=== PATIENT | male | born 1995 | race Caucasian/White ===

== ENCOUNTER 2018-02-27 05:19 | Emergency (ER) | payer MEDICAID, OTHER ==
[2018-02-27] MEDS ORDERED: Insulin Regular 300 UNITS/3 ML VIAL ONE (05:54)
[2018-02-27 06:29] LABS: Anion Gap 16 mmol/L (10-20); BUN (Urea Nitrogen) 16 mg/dL (8.9-20.6); Calc. Creatinine Clearance 0 mL/min (70-130); Calcium 10.1 mg/dL (7.8-10.44); Carbon Dioxide 25 mmol/L (22-29); Chloride 93 mmol/L (98-107); Estimated GFR-MDRD 82; Potassium 4.2 mmol/L (3.5-5.1); Sodium 130 mmol/L (136-145)
[2018-02-27 06:41] LABS: Glucose 673 mg/dL (70-105)
== END 2018-02-27 07:10 | disposition home or self-care (01) ==
LOC: EDUNIT# 05:19 → ERS 05:19
DX: E10.65 Type 1 diabetes mellitus with hyperglycemia (principal); F31.9 Bipolar disorder, unspecified; Z87.891 Personal history of nicotine dependence; Z79.4 Long term (current) use of insulin; Z79.899 Other long term (current) drug therapy
CPT/HCPCS: 36415; 36416; 80048; 82010; 96361; 96374; J1815

== ENCOUNTER 2018-05-08 10:33 | Inpatient (IN) | payer MEDICAID, OTHER ==
[2018-05-08] MEDS ORDERED: Ondansetron ODT 4 MG TAB ONE ×2 (11:15→14:51)
[2018-05-08 11:49] LABS: #Eosinphils 0.1 thou/uL (0.0-0.7); #Lymphocytes 4.1 thou/uL (1.20-3.40); %Basophils 0.2 % (0.0-1.0); %Eosinophils 0.4 % (0.0-10.0); %Lymphocytes 25.5 % (21.0-51.0); %Monocytes 6.2 % (0.0-10.0); %Neutrophils 67.7 % (42.0-75.0); Hemoglobin 20.2 g/dL (14.0-18.0); Mean Corpuscular HGB CONC 34.6 g/dL (32.0-36.0); Mean Corpuscular Hemoglobin 31.4 pg (27.0-31.0); Mean Corpuscular Volume 90.9 fL (78.0-98.0); Mean Platelet Volume 6.4 fL (7.4-10.4); Platelet Count 344 thou/uL (130-400); Red Blood Cell (RBC) Count 6.43 mill/uL (4.70-6.10); White Blood Cell (WBC) Count 16.2 thou/uL (4.8-10.8)
[2018-05-08 12:05] LABS: ALT (SGPT) 20 U/L (8-55); AST (SGOT) 15 U/L (5-34); Albumin 4.7 g/dL (3.5-5.0); Alkaline Phosphatase 101 U/L (40-150); Anion Gap 27 mmol/L (10-20); BUN (Urea Nitrogen) 16 mg/dL (8.9-20.6); Bilirubin, Total 0.6 mg/dL (0.2-1.2); Calc. Creatinine Clearance 0 mL/min (70-130); Carbon Dioxide 10 mmol/L (22-29); Chloride 103 mmol/L (98-107); Estimated GFR-MDRD 53; Globulin 3.9 g/dL (2.4-3.5); Glucose 148 mg/dL (70-105); Lipase 8 U/L (8-78); Magnesium 1.9 mg/dL (1.6-2.6); Potassium 4.2 mmol/L (3.5-5.1); Protein, Total 8.6 g/dL (6.0-8.3); Sodium 136 mmol/L (136-145)
[2018-05-08 13:28] LABS: Bilirubin Moderate (Negative); Blood, Urine Trace (Negative); Clarity CLEAR (Clear); Glucose, Urine (Dipstick) 500 mg/dL (Negative); Leukocyte Negative (Negative); Nitrite Negative (Negative); Protein, Urine (Dipstick) > or equal to 300 mg/dL (Neg-Trace); Specific Gravity, Urine 1.025 (1.002-1.036); Urobilinogen 0.2 mg/dL (0.2-1.0)
[2018-05-08 13:29] LABS: Base Excess-Venous -15.5 mmol/L (0 (+/- 2.5)); Bicarbonate (HCO3v) 10.8 mmol/L (1.0-85.0); CO2 Tension (PvCO2) 28.5 mmHg (41.0-51.0); Calcium, Ionized 1.07 mmol/L (1.12-1.32); Hemoglobin - Calc 21.2 g/dL (12.0-18.0); O2 Tension (PvO2) 40.1 mmHg (35.0-45.0); Potassium 4.5 mmol/L (3.4-4.7); T. Carbon Dioxide 11.7 mmol/L (1.0-85.0); pH (Venous) 7.187 (7.35-7.45); vO2 Saturation-calc 63.7 % (94-98)
[2018-05-08 13:34] LABS: Bacteria/HPF None Seen HPF (None Seen); RBC/HPF 0-3 HPF (0-3); Squamous Epithelial 0-3 HPF (0-3); WBC/HPF 0-3 HPF (0-3)
[2018-05-08 13:36] LABS: Pathc Cast-AUWi Flag 10.32 (0-2.49)
[2018-05-08 13:39] LABS: Renal Epithelial None Seen HPF (0-3); Transitional Epithelial NONE SEEN HPF (0-3)
[2018-05-08 13:40] LABS: Hyaline Casts/LPF 0-3 HYALINE CAST LPF (0-3 Hyaline); Manual Microscopic Reviewed? No Path Casts Seen
[2018-05-08] MEDS ORDERED: Acetaminophen 325 MG TAB PO PRN (14:25)
[2018-05-08] MEDS ORDERED: Dextrose 5% in Water 1,000 ML IV PRN (14:25)
[2018-05-08] MEDS ORDERED: Dextrose 50% Abboject 50 ML SYRINGE SLOW IVP PRN (14:25)
[2018-05-08] MEDS ORDERED: NS 0.9% w/ 20 MEQ KCL 1,000 ML IV PRN ×2 (14:25)
[2018-05-08] MEDS ORDERED: CCU Electrolyte Replacement 1 EACH IVPB ONE (14:25)
[2018-05-08] MEDS ORDERED: Sodium Chloride 0.9% 1,000 ML IV PRN ×4 (14:25)
[2018-05-08] MEDS ORDERED: Dextrose 5 %-0.45 % NaCl 1,000 ML IV PRN (14:25)
[2018-05-08] MEDS ORDERED: Insulin Regular 100 units/100 ml in NS IVPB SCH (14:30)
[2018-05-08] MEDS ORDERED: Dextrose 5% w/ 20 mEq KCl 1,000 ML IV SCH (14:30)
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
[2018-05-08 14:40] LABS: Amphetamine Not Detected (NotDetected); Barbiturates Screen Not Detected (NotDetected); Benzodiazepine Screen Not Detected (NotDetected); Cocaine Metabolite Screen Not Detected (NotDetected); Medtox Control Line Valid? VALID (VALID); Medtox Reader # READER 1; Methadone Not Detected (NotDetected); Methamphetamine Not Detected (NotDetected); Opiate Screen Not Detected (NotDetected); Oxycodone Screen Not Detected (NotDetected); Phencyclidine (PCP) Not Detected (NotDetected); THC/Cannabinoid Screen Not Detected (NotDetected); Tricyclic Screen Not Detected (NotDetected)
[2018-05-08] MEDS ORDERED: Ketorolac Tromethamine 30 MG/ML VIAL ONE (14:51)
[2018-05-08] MEDS ORDERED: Ondansetron ODT 4 MG TAB PO PRN (15:05)
[2018-05-08 15:38] LABS: Hemoglobin A1c 13.4 % (4.0-6.0)
[2018-05-08 15:39] LABS: BUN (Urea Nitrogen) 14 mg/dL (8.9-20.6); Calc. Creatinine Clearance 0 mL/min (70-130); Calcium 8.7 mg/dL (7.8-10.44); Carbon Dioxide Less than 8 mmol/L (22-29); Chloride 109 mmol/L (98-107); Estimated GFR-MDRD 62; Glucose 249 mg/dL (70-105); Magnesium 1.7 mg/dL (1.6-2.6); Phosphorus 2.9 mg/dL (2.3-4.7); Potassium 4.7 mmol/L (3.5-5.1); Sodium 139 mmol/L (136-145)
[2018-05-08] MEDS ORDERED: Potassium Chloride 40 MEQ in Premix Bag 1 BAG IVPB PRN (15:44)
[2018-05-08] MEDS ORDERED: Potassium Phosphate 9 MMOL in Sodium Chloride 0.9% 100 ML IVPB PRN (15:44)
[2018-05-08] MEDS ORDERED: Potassium Chloride 40 MEQ in Sodium Chloride 0.9% 250 ML 250 ML IVPB PRN (15:44)
[2018-05-08] MEDS ORDERED: Potassium Chloride 20 MEQ TAB PO PRN (15:44)
[2018-05-08] MEDS ORDERED: Magnesium 2 GM/NS 0.9% 100 ML 2 GM in Premix Bag 1 BAG IVPB PRN (15:44)
[2018-05-08] MEDS ORDERED: CCU ELECTROLYTE REPLACEMENT PROTOCOL FS PRN (15:44)
[2018-05-08] MEDS ORDERED: Potassium Phosphate 15 MMOL in Sodium Chloride 0.9% 250 ML 250 ML IV PRN (15:44)
[2018-05-08] MEDS ORDERED: Potassium Phosphate 12 MMOL in Sodium Chloride 0.9% 250 ML 250 ML IV PRN (15:44)
[2018-05-08] MEDS ORDERED: Magnesium Oxide 400 MG TAB PO PRN ×2 (15:44)
[2018-05-08 16:12] LABS: Lactic Acid 1.2 mmol/L (0.5-2.2)
[2018-05-08] MEDS: D5 1/2 NS w/20 mEq KCL 1,000 ML IV PRN ×2 (18:42→23:07)
[2018-05-08 19:08] LABS: Lactic Acid 1.1 mmol/L (0.5-2.2)
[2018-05-08 19:31] LABS: Anion Gap 19 mmol/L (10-20); BUN (Urea Nitrogen) 13 mg/dL (8.9-20.6); Calc. Creatinine Clearance 68 mL/min (70-130); Calcium 8.8 mg/dL (7.8-10.44); Carbon Dioxide 12 mmol/L (22-29); Chloride 106 mmol/L (98-107); Estimated GFR-MDRD 65; Glucose 307 mg/dL (70-105); Potassium 3.9 mmol/L (3.5-5.1); Sodium 133 mmol/L (136-145)
[2018-05-08 23:42] LABS: Lactic Acid 0.8 mmol/L (0.5-2.2)
[2018-05-08 23:46] LABS: Anion Gap 11 mmol/L (10-20); BUN (Urea Nitrogen) 11 mg/dL (8.9-20.6); Calc. Creatinine Clearance 79 mL/min (70-130); Calcium 8.7 mg/dL (7.8-10.44); Carbon Dioxide 16 mmol/L (22-29); Chloride 111 mmol/L (98-107); Estimated GFR-MDRD 76; Glucose 136 mg/dL (70-105); Potassium 3.7 mmol/L (3.5-5.1); Sodium 134 mmol/L (136-145)
[2018-05-09] MEDS: D5 1/2 NS w/20 mEq KCL 1,000 ML IV PRN ×2 (03:00→06:49)
[2018-05-09 04:22] LABS: Anion Gap 11 mmol/L (10-20); BUN (Urea Nitrogen) 9 mg/dL (8.9-20.6); Calc. Creatinine Clearance 83 mL/min (70-130); Calcium 8.6 mg/dL (7.8-10.44); Carbon Dioxide 18 mmol/L (22-29); Chloride 110 mmol/L (98-107); Estimated GFR-MDRD 82; Glucose 248 mg/dL (70-105); Potassium 3.8 mmol/L (3.5-5.1); Sodium 135 mmol/L (136-145)
--- NOTE | 2018-05-09 07:21 | PDOC.FM ---
- Subjective Subjective: Patient reports feeling better overnight, only complaints are hunger and abdominal pain. Denies N/V/D/C, BARRON, dizziness, SOB, CP. - Objective MAR Reviewed: Yes Vital Signs & Weight: Vital Signs (12 hours) Temp Pulse Resp BP Pulse Ox 05/09/18 04:00 98.4 F 93 18 130/76 99 05/09/18 00:00 98.8 F 97 18 124/80 98 05/08/18 20:00 98.6 F 74 18 100 Weight Weight 57.062 kg I&O: 05/08/18 05/09/18 05/10/18 06:59 06:59 06:59 Intake Total 3120 Output Total 925 Balance 2195 Result Diagrams: 05/08/18 11:22 05/09/18 03:27 <Kris Hensley M - Last Filed: 05/09/18 10:37> - Objective Vital Signs & Weight: Vital Signs (12 hours) Temp Pulse Resp BP Pulse Ox 05/09/18 11:52 98.6 F 16 135/89 100 05/09/18 08:00 98.4 F 93 16 99 05/09/18 07:28 98.4 F 93 16 123/79 97 05/09/18 04:00 98.4 F 93 18 130/76 99 Weight Weight 57.062 kg I&O: 05/08/18 05/09/18 05/10/18 06:59 06:59 06:59 Intake Total 3120 2350 Output Total 925 800 Balance 2195 1550 Result Diagrams: 05/08/18 11:22 05/09/18 12:35 <Faustino Mejia A - Last Filed: 05/09/18 14:09> Phys Exam - Physical Examination Constitutional: NAD HEENT: moist MMs, oral pharynx no lesions Neck: no JVD, full ROM Respiratory: no wheezing, clear to auscultation bilateral Cardiovascular: RRR, no significant murmur Gastrointestinal: soft, positive bowel sounds diffusely tender Musculoskeletal: no edema, pulses present Neurological: normal sensation, moves all 4 limbs Psychiatric: normal affect, A&O x 3 Skin: no rash, normal turgor <Kris Hensley M - Last Filed: 05/09/18 10:37> Dx/Plan (1) DKA (diabetic ketoacidoses) Code(s): E13.10 - OTH DIABETES MELLITUS WITH KETOACIDOSIS WITHOUT COMA Status : Acute QualifierTitle: Diabetes mellitus type: type 1 Diabetes mellitus complication detail: without coma Qualified Code(s): E10.10 - Type 1 diabetes mellitus with ketoacidosis without coma (2) BROOKE (acute kidney injury) Code(s): N17.9 - ACUTE KIDNEY FAILURE, UNSPECIFIED Status: Acute (3) Lactic acid increased Code(s): E87.2 - ACIDOSIS Status: Acute (4) Diabetes mellitus type 1 Status: Chronic QualifierTitle: Diabetes mellitus complication status: with ketoacidosis Diabetes mellitus complication detail: without coma Qualified Code(s): E10.10 - Type 1 diabetes mellitus with ketoacidosis without coma (5) Polycythemia Code(s): D75.1 - SECONDARY POLYCYTHEMIA Status: Acute (6) Leukocytosis Code(s): D72.829 - ELEVATED WHITE BLOOD CELL COUNT, UNSPECIFIED Status: Acute - Plan Plan: DKA - Anion gap just closed this morning, now 7 from 23 yesterday. - advance diet and switch to SC insulin, turn off insulin drip 1-2 hours after SC insulin administered - zofran for n/v BROOKE - related to severe dehydration - IVF via DKA protocol, recheck BMP bid DM1 - restart home insulin when off of DKA protocol - HA1c: 13.4 - Accucheck achs when off of DKA protocol Elevated lactic acid - secondary to DKA related dehydration - resolved Polycythemia - 2/2 dehydration - IVF as above Leukocytosis - most likely reactive - UA negative, GCC pending. No other clear source or signs of infection <Kris Hensley - Last Filed: 05/09/18 10:37> Attending Addendum - Attending Addendum Date/Time: 05/09/18 5184 I personally evaluated the patient and discussed the management with Dr. Hensley. I agree with the History, Examination, Assessment and Plan documented above with any addition or exceptions noted below. <Faustino Mejia - Last Filed: 05/09/18 14:09>
[2018-05-09] MEDS ORDERED: Insulin Glargine 30 UNITS in Pre-Filled Syringe 1 EACH SC SCH (09:00)
[2018-05-09] MEDS ORDERED: Dextrose 5% in Water 1,000 ML IV PRN (12:31)
[2018-05-09] MEDS ORDERED: Dextrose 50% Abboject 50 ML SYRINGE SLOW IVP PRN (12:31)
[2018-05-09 13:11] LABS: Anion Gap 8 mmol/L (10-20); BUN (Urea Nitrogen) 7 mg/dL (8.9-20.6); Calc. Creatinine Clearance 99 mL/min (70-130); Calcium 8.7 mg/dL (7.8-10.44); Carbon Dioxide 23 mmol/L (22-29); Chloride 109 mmol/L (98-107); Estimated GFR-MDRD Greater than 90; Glucose 253 mg/dL (70-105); Potassium 3.2 mmol/L (3.5-5.1); Sodium 137 mmol/L (136-145)
[2018-05-09] MEDS: HumaLOG 300 UNITS/3 ML VIAL SC PRN ×2 (13:48→16:34)
[2018-05-09 14:34] VITALS: BMI 17.4
[2018-05-09 15:35] VITALS: BP 118/77
[2018-05-09 17:11] VITALS: TEMP 98.3
[2018-05-09 17:34] LABS: Anion Gap 8 mmol/L (10-20); BUN (Urea Nitrogen) 7 mg/dL (8.9-20.6); Calc. Creatinine Clearance 103 mL/min (70-130); Calcium 8.5 mg/dL (7.8-10.44); Carbon Dioxide 25 mmol/L (22-29); Chloride 109 mmol/L (98-107); Estimated GFR-MDRD Greater than 90; Glucose 257 mg/dL (70-105); Potassium 3.3 mmol/L (3.5-5.1); Sodium 139 mmol/L (136-145)
[2018-05-09] MEDS ORDERED: Potassium Chloride 20 MEQ TAB PO SCH (18:15)
[2018-05-10] MEDS ORDERED: Potassium Chloride 20 MEQ TAB PO SCH (08:00)
--- NOTE | 2018-05-10 13:05 | DIS-2 ---
DATE OF ADMISSION: 05/08/2018 DATE OF AMA: 05/09/2018 RESIDENT: Kris Hensley D.O. ADMITTING ATTENDING: Dr. Gayle Webber ATTENDING AT TIME OF AMA: Dr. Faustino Mejia CONSULTS: None. PROCEDURES: None. PRIMARY DIAGNOSES: 1. Diabetic ketoacidosis. 2. Acute kidney injury. SECONDARY DIAGNOSES: 1. Type 1 diabetes. 2. Polycythemia. 3. Leukocytosis. DISCHARGE MEDICATIONS: No medications were provided for patient on discharge. However, the patient was previously: 1. Tresiba FlexTouch Pen 30 units subcutaneous b.i.d. 2. Humalog 15 units subcutaneous t.i.d. with meals. 3. Gabapentin 100 mg p.o. b.i.d. DISCONTINUED MEDICATIONS: None. HISTORY OF PRESENT ILLNESS/HOSPITAL COURSE: The patient is a 22-year-old male with a past medical history of type 1 diabetes and recurrent episodes of DKA with 3 other episodes of similar presentation in the past year. In the ER, the patient received a fluid bolus; however, because he reported that he had taken home insulin he was not given any. This decision was also made because the patient's blood sugar was 185. However, anion gap was 23, which on the 2nd check of BMP worsened to at least 23, was unable to be measured because the bicarbonate was less than 8. Additionally, beta hydroxybutyrate of 6.82. Creatinine at that time also was 1.64. The patient was admitted to [facility] and started on an insulin drip with D5 with potassium repletion. Overnight, the patient improved and by the morning his anion gap had closed. That morning, the patient's blood sugars got as high as 391. Additionally, potassium was down to 3.2 at lunch time. Therefore, the patient was continued to be titrated on his insulin. He was taken off the insulin drip and fed which he tolerated p.o. He was transferred to the floor and given potassium repletion. The evening of day 2 of hospitalization, the patient desired to go home. There were concerns about his blood sugars being too elevated and the patient going back into DKA as well as his low potassium. Therefore, the patient signed papers to leave the hospital AMA and left. Additionally, the patient's hemoglobin A1C was 13.4 and was 13.8 at the end of November. Also of note, the patient's creatinine did improve from 1.64 on admission to 0.91 on the day of AMA. DISPOSITION: Guarded long-term if he does not improve his care for treatment. MTDD
== END 2018-05-09 20:11 | disposition left against medical advice (07) | DRG 638 ==
LOC: ERS 10:33 → IMCU/EMU 17:23 → T4-A 05-09 15:32
PROVIDERS: ADMIT Family Medicine; ATTEND Family Medicine
DX: E10.10 Type 1 diabetes mellitus with ketoacidosis without coma (principal); N17.9 Acute kidney failure, unspecified; E87.2 Acidosis; Z79.4 Long term (current) use of insulin; E86.0 Dehydration; D75.1 Secondary polycythemia
CPT/HCPCS: 36415; 36416; 80048; 80053; 80306; 81003; 81015; 82010; 82330; 82803; 83036; 83605; 83690; 83735; 84100; 85025; 87491; 87591; 93005; 96361; 96365; 96366; 96375; J1815; J1885; J7050; Q0162

== ENCOUNTER 2018-05-25 19:33 | Inpatient (IN) | payer OTHER ==
[2018-05-25] MEDS ORDERED: Ketorolac Tromethamine 30 MG/ML VIAL ONE (20:02)
[2018-05-25 20:09] LABS: Hemoglobin 18.8 g/dL (14.0-18.0); Mean Corpuscular HGB CONC 36.2 g/dL (32.0-36.0); Mean Corpuscular Hemoglobin 32.7 pg (27.0-31.0); Mean Corpuscular Volume 90.5 fL (78.0-98.0); Mean Platelet Volume 6.3 fL (7.4-10.4); Platelet Count 312 thou/uL (130-400); RBC Distribution Width 12.4 % (11.5-14.5); Red Blood Cell (RBC) Count 5.75 mill/uL (4.70-6.10); White Blood Cell (WBC) Count 10.7 thou/uL (4.8-10.8)
--- NOTE | 2018-05-25 20:30 | RAD ---
AP VIEW CHEST 05/25/18 HISTORY: Cough, weakness. AP view chest is obtained on 05/25/18. Comparison made to previous exam from 12/12/17. AP view chest demonstrates the lungs to be well aerated. No evidence of active intrathoracic disease seen. No evidence of effusions, pneumonia or pneumothorax seen. IMPRESSION: Unremarkable AP view chest. POS: [facility]
[2018-05-25 20:31] LABS: Band 4 % (5-11); Eosinophils 1 % (0-10); Lymphocytes 31 % (21-51); MDiff Complete? YES; Monocytes 4 % (0-10); Neutrophil 55 % (42-75); PLT Morphology Comment Appears Adequate; RBC Morphology Normal; Reactive Lymphocytes 5 % (0-10)
[2018-05-25 20:32] LABS: ALT (SGPT) 18 U/L (8-55); AST (SGOT) 13 U/L (5-34); Albumin 4.5 g/dL (3.5-5.0); Alkaline Phosphatase 97 U/L (40-150); Anion Gap 26 mmol/L (10-20); BUN (Urea Nitrogen) 14 mg/dL (8.9-20.6); Bilirubin, Total 0.3 mg/dL (0.2-1.2); Calc. Creatinine Clearance 0 mL/min (70-130); Calcium 9.5 mg/dL (7.8-10.44); Carbon Dioxide 13 mmol/L (22-29); Chloride 102 mmol/L (98-107); Estimated GFR-MDRD 53; Globulin 3.2 g/dL (2.4-3.5); Glucose 173 mg/dL (70-105); Magnesium 2.2 mg/dL (1.6-2.6); Potassium 3.6 mmol/L (3.5-5.1); Protein, Total 7.7 g/dL (6.0-8.3); Sodium 137 mmol/L (136-145)
[2018-05-25 22:20] LABS: Bilirubin Moderate (Negative); Blood, Urine Negative (Negative); Clarity CLEAR (Clear); Glucose, Urine (Dipstick) >=1000 mg/dL (Negative); Leukocyte Negative (Negative); Nitrite Negative (Negative); Protein, Urine (Dipstick) 30 mg/dL (Neg-Trace); Specific Gravity, Urine 1.018 (1.002-1.036); Urobilinogen 0.2 mg/dL (0.2-1.0); pH, Urine 5.5 (5.0-9.0)
[2018-05-25 22:22] LABS: Bacteria/HPF None Seen HPF (None Seen); Hyaline Casts/LPF 0-3 HYALINE CAST LPF (0-3 Hyaline); Pathc Cast-AUWi Flag 0.29 (0-2.49); Squamous Epithelial None Seen HPF (0-3); WBC/HPF 0-3 HPF (0-3)
[2018-05-26 00:07] LABS: Anion Gap 24 mmol/L (10-20); BUN (Urea Nitrogen) 11 mg/dL (8.9-20.6); Calc. Creatinine Clearance 0 mL/min (70-130); Calcium 7.5 mg/dL (7.8-10.44); Carbon Dioxide 11 mmol/L (22-29); Chloride 105 mmol/L (98-107); Estimated GFR-MDRD 68; Glucose 360 mg/dL (70-105); Potassium 4.1 mmol/L (3.5-5.1); Sodium 136 mmol/L (136-145)
[2018-05-26] MEDS ORDERED: Ondansetron ODT 8 MG TAB ONE (00:21)
[2018-05-26] MEDS ORDERED: Morphine 4 MG/ML VIAL ONE (00:21)
[2018-05-26] MEDS ORDERED: Potassium Chloride 20 MEQ TAB ONE (01:03)
[2018-05-26] MEDS ORDERED: Acetaminophen 325 MG TAB PO PRN (01:04)
[2018-05-26] MEDS ORDERED: Sodium Chloride 0.9% 1,000 ML IV SCH (01:15)
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
[2018-05-26] MEDS ORDERED: Insulin Regular 300 UNITS/3 ML VIAL ONE (01:49)
[2018-05-26 02:14] LABS: #Basophils 0.1 thou/uL (0.0-0.2); #Eosinphils 0.1 thou/uL (0.0-0.7); #Lymphocytes 3.2 thou/uL (1.20-3.40); #Monocytes 0.6 thou/uL (0.11-0.59); #Neutrophils 4.9 thou/uL (1.40-6.50); %Basophils 0.8 % (0.0-1.0); %Eosinophils 0.8 % (0.0-10.0); %Lymphocytes 36.5 % (21.0-51.0); %Monocytes 6.4 % (0.0-10.0); %Neutrophils 55.5 % (42.0-75.0); Hemoglobin 14.5 g/dL (14.0-18.0); Mean Corpuscular Hemoglobin 32.9 pg (27.0-31.0); Mean Corpuscular Volume 91.3 fL (78.0-98.0); Mean Platelet Volume 6.1 fL (7.4-10.4); Platelet Count 269 thou/uL (130-400); RBC Distribution Width 12.4 % (11.5-14.5); White Blood Cell (WBC) Count 8.8 thou/uL (4.8-10.8)
[2018-05-26 02:22] LABS: Anion Gap 21 mmol/L (10-20); BUN (Urea Nitrogen) 11 mg/dL (8.9-20.6); Calc. Creatinine Clearance 0 mL/min (70-130); Calcium 7.8 mg/dL (7.8-10.44); Carbon Dioxide 10 mmol/L (22-29); Chloride 107 mmol/L (98-107); Estimated GFR-MDRD 76; Glucose 351 mg/dL (70-105); Potassium 3.6 mmol/L (3.5-5.1); Sodium 134 mmol/L (136-145)
[2018-05-26] MEDS ORDERED: Potassium Chloride 20 MEQ TAB PO SCH (02:45)
[2018-05-26 03:08] LABS: CO2 Tension 23.3 mmHg (35.0-45.0); O2 Tension (PaO2) 129.4 mmHg (80.0-100.0); pH, Arterial 7.33 (7.35-7.45)
[2018-05-26 03:09] LABS: Base Excess (BEa) -11.9 mEq/L (-2.0 to +3.0); Hematocrit-ABG 42.4 % (42.0-52.0); Hemoglobin (Hb) 14.2 g/dL (14.0-18.0)
[2018-05-26 03:10] LABS: ALV-art Gradient -8.795 (0-20); Analyzer IN Cardio ER; Calcium, Ionized 1.3 mmol/L (1.12-1.30); Puncture Site R RADIAL
[2018-05-26] MEDS ORDERED: D5 1/2 NS w/20 mEq KCL 1,000 ML ONE ×2 (03:45→08:56)
[2018-05-26 04:33] LABS: Anion Gap 15 mmol/L (10-20); BUN (Urea Nitrogen) 9 mg/dL (8.9-20.6); Calc. Creatinine Clearance 0 mL/min (70-130); Calcium 7.7 mg/dL (7.8-10.44); Carbon Dioxide 14 mmol/L (22-29); Chloride 106 mmol/L (98-107); Estimated GFR-MDRD 84; Glucose 200 mg/dL (70-105); Potassium 4.5 mmol/L (3.5-5.1); Sodium 130 mmol/L (136-145)
[2018-05-26] MEDS ORDERED: Enoxaparin Sodium 40 MG/0.4 ML SYRINGE ONE (08:44)
[2018-05-26] MEDS ORDERED: Docusate 100 MG CAP PO SCH (09:00)
[2018-05-26] MEDS ORDERED: Famotidine/PF 20 mg/2ml Vial SLOW IVP SCH (09:00)
[2018-05-26] MEDS ORDERED: Enoxaparin Sodium 40 MG/0.4 ML SYRINGE SC SCH (09:00)
[2018-05-26] MEDS: D5 1/2 NS w/20 mEq KCL 1,000 ML IV SCH ×2 (09:01→11:24)
[2018-05-26] MEDS ORDERED: HumaLOG 300 UNITS/3 ML VIAL ONE (10:34)
[2018-05-26 10:38] LABS: Anion Gap 10 mmol/L (10-20); BUN (Urea Nitrogen) 8 mg/dL (8.9-20.6); Calc. Creatinine Clearance 0 mL/min (70-130); Calcium 7.4 mg/dL (7.8-10.44); Carbon Dioxide 19 mmol/L (22-29); Chloride 105 mmol/L (98-107); Estimated GFR-MDRD Greater than 90; Glucose 216 mg/dL (70-105); Potassium 3.8 mmol/L (3.5-5.1); Sodium 130 mmol/L (136-145)
[2018-05-26] MEDS ORDERED: Insulin Glargine 30 UNITS in Pre-Filled Syringe 1 EACH SC SCH (10:45)
[2018-05-26] MEDS ORDERED: HumaLOG 300 UNITS/3 ML VIAL SC SCH (10:45)
[2018-05-26 11:06] VITALS: TEMP 98.1
[2018-05-26 11:27] VITALS: BMI 17.6
[2018-05-26 14:57] VITALS: BP 118/64
== END 2018-05-26 14:55 | disposition home or self-care (01) | DRG 639 ==
LOC: ERS 19:33 → ERHOLD 05-26 00:25 → T4-A 05-26 11:12
PROVIDERS: ADMIT Internal Medicine; ATTEND Internal Medicine
DX: E10.10 Type 1 diabetes mellitus with ketoacidosis without coma (principal); E10.40 Type 1 diabetes mellitus with diabetic neuropathy, unspecified; F31.9 Bipolar disorder, unspecified; E86.0 Dehydration; Z79.4 Long term (current) use of insulin; Z79.899 Other long term (current) drug therapy
CPT/HCPCS: 36415; 36416; 71045; 80048; 80053; 81003; 81015; 82010; 82550; 82805; 83690; 83735; 84100; 85025; 85652; 93005; 96360; 96361; 96365; 96366; 96375; J1650; J1815; J1885; J2270; J7050

== ENCOUNTER 2018-06-18 11:45 | Inpatient (IN) | payer OTHER ==
[2018-06-18 12:29] LABS: #Basophils 0.1 thou/uL (0.0-0.2); #Eosinphils 0.1 thou/uL (0.0-0.7); #Lymphocytes 2.6 thou/uL (1.20-3.40); #Monocytes 0.4 thou/uL (0.11-0.59); #Neutrophils 8.5 thou/uL (1.40-6.50); %Basophils 0.8 % (0.0-1.0); %Eosinophils 0.6 % (0.0-10.0); %Lymphocytes 22.4 % (21.0-51.0); %Monocytes 3.7 % (0.0-10.0); %Neutrophils 72.5 % (42.0-75.0); Hemoglobin 20.6 g/dL (14.0-18.0); Mean Corpuscular HGB CONC 34.7 g/dL (32.0-36.0); Mean Corpuscular Hemoglobin 32.9 pg (27.0-31.0); Mean Corpuscular Volume 94.7 fL (78.0-98.0); Platelet Count 513 thou/uL (130-400); RBC Distribution Width 13.7 % (11.5-14.5); Red Blood Cell (RBC) Count 6.26 mill/uL (4.70-6.10); White Blood Cell (WBC) Count 11.8 thou/uL (4.8-10.8)
[2018-06-18] MEDS ORDERED: Insulin Regular 300 UNITS/3 ML VIAL ONE (12:44)
[2018-06-18] MEDS ORDERED: Ondansetron HCl/PF 4 MG/2 ML Vial ONE (12:44)
[2018-06-18 13:52] LABS: ALT (SGPT) 37 U/L (8-55); AST (SGOT) 20 U/L (5-34); Albumin 4.4 g/dL (3.5-5.0); Alkaline Phosphatase 141 U/L (40-150); BUN (Urea Nitrogen) 25 mg/dL (8.9-20.6); Bilirubin, Total 0.2 mg/dL (0.2-1.2); Calc. Creatinine Clearance 0 mL/min (70-130); Calcium 9.9 mg/dL (7.8-10.44); Chloride 103 mmol/L (98-107); Estimated GFR-MDRD 47; Globulin 3.8 g/dL (2.4-3.5); Magnesium 2.4 mg/dL (1.6-2.6); Phosphorus 4.9 mg/dL (2.3-4.7); Protein, Total 8.2 g/dL (6.0-8.3); Sodium 134 mmol/L (136-145)
[2018-06-18 13:59] LABS: Carbon Dioxide Less than 8 mmol/L (22-29); Glucose 570 mg/dL (70-105)
[2018-06-18] MEDS ORDERED: Insulin Regular 100 units/100 ml in NS IVPB SCH (14:45)
[2018-06-18] MEDS ORDERED: HYDROcodone/Acetaminophen 5/325 mg Tablet ONE (15:02)
[2018-06-18 16:26] LABS: BUN (Urea Nitrogen) 24 mg/dL (8.9-20.6); Calc. Creatinine Clearance 0 mL/min (70-130); Calcium 9.4 mg/dL (7.8-10.44); Chloride 107 mmol/L (98-107); Estimated GFR-MDRD 55; Glucose 474 mg/dL (70-105); Potassium 4.7 mmol/L (3.5-5.1); Sodium 137 mmol/L (136-145)
[2018-06-18 16:33] LABS: Carbon Dioxide Less than 8 mmol/L (22-29)
[2018-06-18] MEDS ORDERED: Bisacodyl 5 MG TAB PO PRN (16:41)
[2018-06-18] MEDS ORDERED: Acetaminophen 650 MG Suppository PR PRN (16:41)
[2018-06-18] MEDS ORDERED: CCU Electrolyte Replacement 1 EACH IVPB ONE (16:41)
[2018-06-18] MEDS ORDERED: Dextrose 5 %-0.45 % NaCl 1,000 ML IV PRN (16:41)
[2018-06-18] MEDS ORDERED: Acetaminophen 325 MG TAB PO PRN (16:41)
[2018-06-18] MEDS ORDERED: NS 0.9% w/ 20 MEQ KCL 1,000 ML IV PRN (16:41)
[2018-06-18] MEDS ORDERED: Sodium Chloride 0.9% 1,000 ML IV PRN ×4 (16:41)
[2018-06-18] MEDS ORDERED: Potassium Chloride 40 MEQ in Sodium Chloride 0.9% 250 ML 250 ML IVPB PRN (16:57)
[2018-06-18] MEDS ORDERED: Potassium Chloride 40 MEQ in Premix Bag 1 BAG IVPB PRN (16:57)
[2018-06-18] MEDS ORDERED: CCU ELECTROLYTE REPLACEMENT PROTOCOL FS PRN (16:57)
[2018-06-18] MEDS ORDERED: Magnesium 2 GM/NS 0.9% 100 ML 2 GM in Premix Bag 1 BAG IVPB PRN (16:57)
[2018-06-18] MEDS ORDERED: Potassium Phosphate 12 MMOL in Sodium Chloride 0.9% 250 ML 250 ML IV PRN (16:57)
[2018-06-18] MEDS ORDERED: Magnesium Oxide 400 MG TAB PO PRN ×2 (16:57)
[2018-06-18] MEDS ORDERED: Potassium Phosphate 9 MMOL in Sodium Chloride 0.9% 100 ML IVPB PRN (16:57)
[2018-06-18] MEDS ORDERED: Potassium Phosphate 15 MMOL in Sodium Chloride 0.9% 250 ML 250 ML IV PRN (16:57)
[2018-06-18] MEDS ORDERED: Potassium Chloride 20 MEQ TAB PO PRN (16:57)
--- NOTE | 2018-06-18 17:09 | HP ---
PRIMARY CARE PROVIDER: None. CHIEF COMPLAINT: Vomiting. HISTORY OF PRESENT ILLNESS: Mr. Roldan is a pleasant 22-year-old gentleman who was seen at [facility] on 06/18/2018. He was hospitalized at this facility on 05/26/2018 for di abetic ketoacidosis. Currently, he is lying in bed, appears tired, not really answering questions, but nodding or shaking head occasional in response to questions. A full review of systems could not be completed. Collater al history was obtained from discussion with the emergency room physician and review of medical recor ds. He reportedly has not taken his insulin for the last 2 days. He started vomiting since earlier today . He did not take insulin over the last 2 days because he reportedly forgot about it. He denied any diarrhea or fever. REVIEW OF SYSTEMS: Full review of systems could not be completed secondary to the patient's noncoope ration. PAST MEDICAL HISTORY: Diabetes mellitus type 1 on insulin and neuropathy. PAST SURGICAL HISTORY: Right elbow surgery. PSYCHIATRIC HISTORY: Bipolar disorder and depression. SOCIAL HISTORY: No history of tobacco use, alcohol use or recreational drug use. ALLERGIES: BACTRIM, SULFAMETHOXAZOLE, TRAZODONE and TRIMETHOPRIM. FAMILY HISTORY: Could not obtain. CURRENT MEDICATIONS: Humalog insulin, dose unknown. PHYSICAL EXAMINATION: GENERAL: On examination, Mr. Roldan is sleepy, but arousable, not in acute distress. VITAL SIGNS: Blood pressure is 175/102, pulse 109, respiratory rate 22, and oxygen saturation 100% o n room air. He is afebrile. EYES: No scleral icterus. No conjunctival pallor. ENT: Dry mucosal membranes, no oropharyngeal erythema or exudate. NECK: Supple, nontender, trachea is midline. RESPIRATORY: Accessory muscles of breathing are not active. Chest wall movements are symmetric bila terally. LUNGS: Clear to auscultation without wheeze, rhonchi or crepitations. CARDIOVASCULAR: S1 and S2 are heard, tachycardic and regular. Peripheral pulses are palpable. No c arotid bruit, no pericardial rub. ABDOMEN: Soft, nontender, bowel sounds heard. EXTREMITIES: He has hepatomegaly, no splenomegaly. SKIN: No rashes or subcutaneous nodules, multiple tattoos present. NEUROLOGIC: Cranial nerves II-XII intact. Deep tendon reflexes are 2+. MUSCULOSKELETAL: The patient is moving all four extremities. LYMPHATIC: No cervical lymphadenopathy. PSYCHIATRIC: Normal mood, normal affect, patient is oriented to person and place, unable to assess h is orientation to time. IMAGING DATA AND LABORATORY DATA: Mr. Roldan's labs and investigations were reviewed. He has ana kocytosis with 11,800 white cells, elevated hemoglobin of 20.6, elevated platelet count of 513,000, d ecreased sodium of 134, normal potassium, carbon dioxide less than 8, anion gap could not be calculat ed, blood urea nitrogen elevated at 25, creatinine elevated at 1.83, last known creatinine 0.95 on , normal calcium, elevated phosphorus of 4.9, unremarkable liver profile and elevated glucose of 570. Beta hydroxybutyrate is elevated at 12.51. ASSESSMENT AND PLAN: Mr. Roldan is a pleasant 22-year-old gentleman who was seen at [facility] on 06/18/2018. His problem list includes: 1. Diabetic ketoacidosis: Mr. Roldan is presenting with diabetic ketoacidosis in the context of noncompliance with his insulin. He will be admitted to the hospital for intravenous fluids and insul in per DKA protocol. He will be admitted to the IMCU for further management. 2. Dehydration: Secondary to diabetic ketoacidosis. Provide intravenous fluids, reassess. 3. Acute kidney injury: Secondary to diabetic ketoacidosis. Recheck creatinine level after treatin g ketoacidosis. 4. Metabolic acidosis: Secondary to diabetic ketoacidosis. Recheck Chem-7 after treating diabetic ketoacidosis. LEVEL OF RISK: Intermediate. LEVEL OF COMPLEXITY: Intermediate.
[2018-06-18 17:28] LABS: BUN (Urea Nitrogen) 23 mg/dL (8.9-20.6); Calc. Creatinine Clearance 0 mL/min (70-130); Calcium 9.4 mg/dL (7.8-10.44); Chloride 108 mmol/L (98-107); Estimated GFR-MDRD 58; Glucose 383 mg/dL (70-105); Potassium 4.7 mmol/L (3.5-5.1); Sodium 138 mmol/L (136-145)
[2018-06-18 17:33] LABS: Carbon Dioxide Less than 8 mmol/L (22-29)
[2018-06-18 17:37] VITALS: BMI 16.7
[2018-06-18] MEDS: Ondansetron HCl/PF 4 MG/2 ML Vial SLOW IVP PRN (20:18)
[2018-06-18 21:16] LABS: BUN (Urea Nitrogen) 18 mg/dL (8.9-20.6); Calc. Creatinine Clearance 64 mL/min (70-130); Calcium 8.4 mg/dL (7.8-10.44); Chloride 115 mmol/L (98-107); Estimated GFR-MDRD 70; Glucose 152 mg/dL (70-105); Potassium 4.6 mmol/L (3.5-5.1); Sodium 137 mmol/L (136-145)
[2018-06-18 21:18] LABS: Carbon Dioxide Less than 8 mmol/L (22-29)
[2018-06-18] MEDS: NS 0.9% w/ 20 MEQ KCL 1,000 ML IV PRN ×2 (21:44→23:39)
[2018-06-19 01:19] LABS: Anion Gap 18 mmol/L (10-20); BUN (Urea Nitrogen) 14 mg/dL (8.9-20.6); Calc. Creatinine Clearance 69 mL/min (70-130); Chloride 116 mmol/L (98-107); Estimated GFR-MDRD 76; Glucose 96 mg/dL (70-105); Potassium 4.4 mmol/L (3.5-5.1); Sodium 138 mmol/L (136-145)
[2018-06-19 01:23] LABS: Carbon Dioxide 8 mmol/L (22-29)
[2018-06-19] MEDS: D5 1/2 NS w/20 mEq KCL 1,000 ML IV PRN ×3 (01:36→08:51)
[2018-06-19] MEDS: Ondansetron HCl/PF 4 MG/2 ML Vial SLOW IVP PRN ×2 (03:15→08:50)
[2018-06-19 04:10] LABS: #Basophils 0.1 thou/uL (0.0-0.2); #Eosinphils 0.1 thou/uL (0.0-0.7); #Lymphocytes 4.4 thou/uL (1.20-3.40); #Monocytes 1.4 thou/uL (0.11-0.59); #Neutrophils 9.3 thou/uL (1.40-6.50); %Basophils 0.7 % (0.0-1.0); %Eosinophils 0.7 % (0.0-10.0); %Lymphocytes 28.8 % (21.0-51.0); %Monocytes 9.4 % (0.0-10.0); %Neutrophils 60.5 % (42.0-75.0); Hemoglobin 14.8 g/dL (14.0-18.0); Mean Corpuscular HGB CONC 35.8 g/dL (32.0-36.0); Mean Corpuscular Hemoglobin 33.7 pg (27.0-31.0); Mean Corpuscular Volume 94.1 fL (78.0-98.0); Mean Platelet Volume 6.3 fL (7.4-10.4); Platelet Count 351 thou/uL (130-400); RBC Distribution Width 13.3 % (11.5-14.5); Red Blood Cell (RBC) Count 4.39 mill/uL (4.70-6.10); White Blood Cell (WBC) Count 15.3 thou/uL (4.8-10.8)
[2018-06-19 04:26] LABS: Anion Gap 18 mmol/L (10-20); BUN (Urea Nitrogen) 12 mg/dL (8.9-20.6); Calc. Creatinine Clearance 70 mL/min (70-130); Chloride 113 mmol/L (98-107); Estimated GFR-MDRD 78; Glucose 187 mg/dL (70-105); Sodium 135 mmol/L (136-145)
[2018-06-19 04:51] LABS: Carbon Dioxide 8 mmol/L (22-29)
--- NOTE | 2018-06-19 08:52 | PDOC.PULCN ---
<Kris Ag - Last Filed: 06/19/18 08:54> Pulmonology Consult: HPI - Date of Consult Date: 06/19/18 Time: 08:00 - Consult Details Reason for Consult: DKA Requesting Physician: Colton - History of Present Illness HPI: KAITLIN LINARES is a 22 year-old M w/ PMH including T1DM and Bipolar disorder. He was admitted on 05/08 and 05/26 for DKA and is admitted again for DKA today. This morning he states he is feeling nauseated and has mild abdominal pain today. He denies headache, shortness of breath, or chest pain. Patient states that he takes humalog 15U with meals, 30U tresiba BID. He has not taken any insulin for the last 2 days because "he was sleeping." Patient is aggravated when discussing consequences of not properly managing Diabetes. Pulmonology Consult: ROS - Review of Systems Constitutional: negative: fever, chills Cardiovascular: negative: chest pain, palpitations Respiratory: no reported symptoms. negative: productive cough, wheezing Pulmonology Consult: [facility] Source: patient, other (chart) Past Medical History: T1DM, Bipolar - Social History Smoking Status: Never smoker Alcohol Use: none Drug Use History: none Pulmonology Consult: Meds - Medications MAR Reviewed: Yes Medications: Current Medications Acetaminophen (Tylenol) 650 mg PO Q4H PRN PRN Reason: Headache/Fever or Pain Acetaminophen (Tylenol) 650 mg [place] Q4H PRN PRN Reason: Headache/Fever or Pain Bisacodyl (Dulcolax) 10 mg PO DAILYPRN PRN PRN Reason: Constipation Insulin Human Regular 100 (units/ Sodium Chloride) 101 mls @ 5.05 mls/hr IVPB INF MIKHAIL PRN Reason: 5 UNITS/HR Dextrose/Sodium Chloride (D5 1/2 Ns) 1,000 mls @ 250 mls/hr IV .Q4H PRN; Protocol PRN Reason: Step 4 of DKA Protocol Potassium Chloride/Dextrose/Sod Cl (D5 1/2 Ns W/20 Meq Kcl) 1,000 mls @ 250 mls /hr IV .Q4H PRN; Protocol PRN Reason: Step 4 of DKA Protocol Last Admin: 06/19/18 08:51 Dose: 1,000 mls Insulin Human Regular 100 (units/ Sodium Chloride) 101 mls @ 0 mls/hr IVPB INF MIKHAIL; Titrate PRN Reason: Protocol Sodium Chloride (Normal Saline 0.9%) 1,000 mls @ 500 mls/hr IV .Q2H PRN; Protocol PRN Reason: Step 1 of DKA Protocol Last Admin: 06/18/18 19:36 Dose: 1,000 mls Sodium Chloride (Normal Saline 0.9%) 1,000 mls @ 1,000 mls/hr IV .Q1H PRN; Protocol PRN Reason: Step 1 of DKA Protocol Sodium Chloride (Normal Saline 0.9%) 1,000 mls @ 250 mls/hr IV .Q4H PRN; Protocol PRN Reason: SEE STEP 3 OF DKA PROTOCOL Sodium Chloride (Normal Saline 0.9%) 1,000 mls @ 500 mls/hr IV .Q2H PRN; Protocol PRN Reason: Step 2 of DKA Protocol Potassium Chloride/Sodium Chloride (Ns 0.9% W/ 20 Meq Kcl) 1,000 mls @ 500 mls/ hr IV .Q2H PRN; Protocol PRN Reason: Step 2 of DKA Protocol Last Admin: 06/18/18 23:39 Dose: 1,000 mls Potassium Chloride/Sodium Chloride (Ns 0.9% W/ 20 Meq Kcl) 1,000 mls @ 250 mls/ hr IV .Q4H PRN; Protocol PRN Reason: SEE STEP 3 OF DKA PROTOCOL Potassium Chloride 40 meq/ (Sodium Chloride) 270 mls @ 135 mls/hr IVPB ASDIR PRN PRN Reason: FOR SERUM K+ 2.5 - 3.5 Potassium Chloride 40 meq/ (Device) 100 mls @ 50 mls/hr IVPB ASDIR PRN PRN Reason: FOR SERUM K+ 2.5 - 3.5 Magnesium Sulfate 1 gm/ Sodium (Chloride) 102 mls @ 102 mls/hr IV PRN PRN PRN Reason: MAG LEVEL 1.4 - 2.0 Magnesium Sulfate 2 gm/ Device 100 mls @ 100 mls/hr IVPB ASDIR PRN PRN Reason: MAGNESIUM < 1.4 Potassium Phosphate 9 mmol/ (Sodium Chloride) 103 mls @ 25.75 mls/hr IVPB ASDIR PRN PRN Reason: Phosphate 1.0-1.8 Potassium Phosphate 12 mmol/ (Sodium Chloride) 254 mls @ 63.5 mls/hr IV ASDIR PRN PRN Reason: Serum phosphate 0.5-0.9 Potassium Phosphate 15 mmol/ (Sodium Chloride) 255 mls @ 63.75 mls/hr IV ASDIR PRN PRN Reason: Serum Phos < 0.5 Magnesium Oxide (Magnesium Oxide) 400 mg PO BIDPRN PRN PRN Reason: FOR SERUM MAG 1.4 - 2.0 Magnesium Oxide (Magnesium Oxide) 800 mg PO PRN PRN PRN Reason: FOR SERUM MAG < 1.4 Miscellaneous Medication (Phos-Nak) 1 pkt PO TIDPRN PRN PRN Reason: FOR PHOS LEVEL 1.0 - 1.8 Miscellaneous Medication (Phos-Nak) 2 pkt PO TIDPRN PRN PRN Reason: FOR PHOS LEVEL 0.5 - 1.0 Morphine Sulfate (Morphine) 2 mg SLOW IVP Q4H PRN PRN Reason: Pain Ccu Electrolyte (Replacement Protocol) 0 each FS PRN PRN PRN Reason: FOR ELECTROLYTE REPLACEMENT Ondansetron HCl (Zofran) 4 mg SLOW IVP Q4H PRN PRN Reason: Nausea/Vomiting Last Admin: 06/19/18 08:50 Dose: 4 mg Potassium Chloride (K-Dur) 40 meq PO ASDIR PRN PRN Reason: FOR SERUM K+ 2.5 - 3.5 Potassium Chloride (Klor-Con) 40 meq PER TUBE ASDIR PRN PRN Reason: FOR SERUM K+ 2.5-3.5 - Allergies Allergies/Adverse Reactions: Allergies Allergy/AdvReac Type Severity Reaction Status Date / Time sulfamethoxazole Allergy Verified 05/08/18 19:52 [From Bactrim] trazodone Allergy Verified 05/08/18 19:52 trimethoprim [From Bactrim] Allergy Verified 05/08/18 19:52 Pulmonology Consult: PE - Physical Exam Constitutional: NAD HEENT: moist MMs Cardiovascular: RRR, no significant murmur Respiratory: clear to auscultation anteriorly. negative: wheezes Gastrointestinal: soft, no distention, positive bowel sounds Deviation from normal: mild tenderness to deep palpation Musculoskeletal: no edema, pulses present Neurological: non-focal, moves all 4 limbs Psychiatric: A&O x 3 Skin: no rash, cap refill <2 seconds Pulmonology Consult: Results - Labs Result Diagrams: 06/19/18 03:32 06/19/18 03:32 Pulmonology Consult: A/P - Time Time: 50% of the time was spent in coordination of care (as documented) at patient's floor/unit and/or counseling patient. Time with Patient: greater than 50 minutes - Plan Plan: # DKA - last A1C was 13.4 on 05/08 - gap 14 this AM - B-hydroxybutyrate 12.5 -> 10.8 -> 5.49 - replete electrolytes - still on drip this AM, gap almost closed, bicarb still <8, suggest starting long-acting insulin in anticipation of stopping drip home regimen: humalog 15U at meals, 30U tresiba BID # Metabolic acidosis - bicarb still <8 this AM, 2/2 DKA - afebrile, infection or pancreatitis unlikely as precipitants - check bmp now, 1200 # Dehydration - IVF per DKA protocol # BROOKE - 1.8 on admission, now 1.2 - 2/2 dehydration <Higinio Clark - Last Filed: 06/19/18 21:55> Pulmonology Consult: HPI - History of Present Illness HPI: KAITLIN LINARES is a 22 year-old M Pulmonology Consult: Meds - Medications Medications: Current Medications Acetaminophen (Tylenol) 650 mg PO Q4H PRN PRN Reason: Headache/Fever or Pain Acetaminophen (Tylenol) 650 mg [place] Q4H PRN PRN Reason: Headache/Fever or Pain Bisacodyl (Dulcolax) 10 mg PO DAILYPRN PRN PRN Reason: Constipation Dextrose/Water (Dextrose 50%) 25 gm SLOW IVP PRN PRN PRN Reason: Hypoglycemia Glucagon (Glucagon) 1 mg IM PRN PRN PRN Reason: Hypoglycemia Sodium Chloride (Normal Saline 0.9%) 1,000 mls @ 500 mls/hr IV .Q2H PRN; Protocol PRN Reason: Step 1 of DKA Protocol Last Admin: 06/18/18 19:36 Dose: 1,000 mls Sodium Chloride (Normal Saline 0.9%) 1,000 mls @ 1,000 mls/hr IV .Q1H PRN; Protocol PRN Reason: Step 1 of DKA Protocol Sodium Chloride (Normal Saline 0.9%) 1,000 mls @ 250 mls/hr IV .Q4H PRN; Protocol PRN Reason: SEE STEP 3 OF DKA PROTOCOL Sodium Chloride (Normal Saline 0.9%) 1,000 mls @ 500 mls/hr IV .Q2H PRN; Protocol PRN Reason: Step 2 of DKA Protocol Potassium Chloride/Sodium Chloride (Ns 0.9% W/ 20 Meq Kcl) 1,000 mls @ 500 mls/ hr IV .Q2H PRN; Protocol PRN Reason: Step 2 of DKA Protocol Last Admin: 06/18/18 23:39 Dose: 1,000 mls Potassium Chloride/Sodium Chloride (Ns 0.9% W/ 20 Meq Kcl) 1,000 mls @ 250 mls/ hr IV .Q4H PRN; Protocol PRN Reason: SEE STEP 3 OF DKA PROTOCOL Insulin Glargine 30 units/ (Miscellaneous Medication) 0.3 mls @ 0 mls/hr SC QAM MIKHAIL Insulin Glargine 30 units/ (Miscellaneous Medication) 0.3 mls @ 0 mls/hr SC HS MIKHAIL Last Admin: 06/19/18 20:30 Dose: 0.3 mls Insulin Human Lispro (Humalog) 10 units SC 1200 MIKHAIL Last Admin: 06/19/18 11:42 Dose: 10 units Insulin Human Lispro (Humalog) 10 units SC 1700 MIKHAIL Last Admin: 06/19/18 17:04 Dose: 10 unit Insulin Human Lispro (Humalog) 10 units SC 0800 MIKHAIL Morphine Sulfate (Morphine) 2 mg SLOW IVP Q4H PRN PRN Reason: Pain Last Admin: 06/19/18 17:37 Dose: 2 mg Ondansetron HCl (Zofran) 4 mg SLOW IVP Q4H PRN PRN Reason: Nausea/Vomiting Last Admin: 06/19/18 08:50 Dose: 4 mg Pulmonology Consult: Results - Labs Result Diagrams: 06/19/18 03:32 06/19/18 14:01 Pulmonology Consult: A/P - Time Time: 50% of the time was spent in coordination of care (as documented) at patient's floor/unit and/or counseling patient. Attending Addendum - Attending Addendum Date/Time: 06/19/18 8905 I personally evaluated the patient and discussed the management with Dr. Ag. I agree with the History, Examination, Assessment and Plan documented above with any addition or exceptions noted below. 70 minutes have been devoted to this patient in various activities. I personally reviewed all imaging studies and laboratory data noted within this document. For 50% of this time, I was interacting with the patient at bedside or coordinating care with the care team. For the remainder of the time, I was immediately available to the patient in the hospital unit.
[2018-06-19 09:46] LABS: Anion Gap 14 mmol/L (10-20); BUN (Urea Nitrogen) 7 mg/dL (8.9-20.6); Calc. Creatinine Clearance 72 mL/min (70-130); Calcium 7.6 mg/dL (7.8-10.44); Carbon Dioxide 10 mmol/L (22-29); Chloride 113 mmol/L (98-107); Estimated GFR-MDRD 81; Glucose 217 mg/dL (70-105); Potassium 3.5 mmol/L (3.5-5.1); Sodium 133 mmol/L (136-145)
[2018-06-19] MEDS ORDERED: Dextrose 5% in Water 1,000 ML IV PRN (10:10)
[2018-06-19] MEDS ORDERED: Dextrose 50% Abboject 50 ML SYRINGE SLOW IVP PRN (10:10)
[2018-06-19] MEDS ORDERED: Potassium Chloride 20 MEQ TAB PO SCH (10:45)
[2018-06-19] MEDS ORDERED: Insulin Glargine 30 UNITS in Pre-Filled Syringe 1 EACH SC SCH ×2 (11:00→21:00)
[2018-06-19] MEDS: HumaLOG 300 UNITS/3 ML VIAL SC SCH (11:42)
[2018-06-19 14:26] LABS: Anion Gap 12 mmol/L (10-20); BUN (Urea Nitrogen) 8 mg/dL (8.9-20.6); Calc. Creatinine Clearance 82 mL/min (70-130); Calcium 8.1 mg/dL (7.8-10.44); Carbon Dioxide 17 mmol/L (22-29); Chloride 111 mmol/L (98-107); Estimated GFR-MDRD Greater than 90; Glucose 183 mg/dL (70-105); Potassium 3.8 mmol/L (3.5-5.1); Sodium 136 mmol/L (136-145)
--- NOTE | 2018-06-19 14:29 | PDOC.PN ---
- Subjective Encounter Start Date: 06/19/18 Encounter Start Time: 09:40 Pt seen for followup re: DKA. Pt sleepy but arousable, not answering questions , unable to complete ROS. - Objective MAR Reviewed: Yes Vital Signs & Weight: Vital Signs (12 hours) Temp Pulse Resp BP Pulse Ox 06/19/18 11:49 98.6 F 98 13 123/75 98 06/19/18 08:00 98.6 F 105 H 12 97 06/19/18 07:35 98.6 F 105 H 12 117/78 97 06/19/18 04:00 98.9 F 104 H 17 126/65 97 Weight Admit Weight 110 lb 3.698 oz Weight 110 lb 3.698 oz I&O: 06/18/18 06/19/18 06/20/18 06:59 06:59 06:59 Intake Total 5375 1047 Output Total 1950 1100 Balance 3425 -53 Result Diagrams: 06/19/18 03:32 06/19/18 14:01 Additional Labs: Accuchecks 06/19/18 06/19/18 06/19/18 12:56 12:00 11:11 POC Glucose 209 H 143 H 150 H 06/19/18 06/19/18 06/19/18 10:02 08:58 07:59 POC Glucose 200 H 193 H 221 H 06/19/18 06/19/18 06/19/18 07:02 06:14 05:21 POC Glucose 237 H 245 H 217 H 06/19/18 06/19/18 06/19/18 04:22 03:05 02:06 POC Glucose 227 H 177 H 139 H 06/19/18 06/19/18 06/18/18 01:07 00:18 23:09 POC Glucose 94 94 107 06/18/18 06/18/18 06/18/18 22:05 21:05 20:00 POC Glucose 118 H 132 H 160 H 06/18/18 06/18/18 06/18/18 19:19 18:57 18:03 POC Glucose 210 H 222 H 274 H 06/18/18 06/18/18 06/18/18 17:26 16:27 15:29 POC Glucose 312 H 402 H 439 H EKG Reviewed by me: Yes (Tele: NSR) Phys Exam - Physical Examination Constitutional: NAD Dry mucosae Neck: supple Respiratory: clear to auscultation bilateral Cardiovascular: RRR Gastrointestinal: soft Neurological: moves all 4 limbs Psychiatric: normal affect Deviation from normal: Unable to assess orientation Dx/Plan (1) DKA (diabetic ketoacidoses) Code(s): E13.10 - OTH DIABETES MELLITUS WITH KETOACIDOSIS WITHOUT COMA Status : Acute Qualifiers: Diabetes mellitus type: type 1 Diabetes mellitus complication detail: without coma Qualified Code(s): E10.10 - Type 1 diabetes mellitus with ketoacidosis without coma Comment: Improving, continue DKA treatment per protocol (2) Hyponatremia Code(s): E87.1 - HYPO-OSMOLALITY AND HYPONATREMIA Status: Acute Comment: mild, likely asymptomatic (3) BROOKE (acute kidney injury) Code(s): N17.9 - ACUTE KIDNEY FAILURE, UNSPECIFIED Status: Resolved (4) Hypokalemia Code(s): E87.6 - HYPOKALEMIA Status: Resolved - Plan * . Review of Systems - Medications/Allergies Allergies/Adverse Reactions: Allergies Allergy/AdvReac Type Severity Reaction Status Date / Time sulfamethoxazole Allergy Verified 05/08/18 19:52 [From Bactrim] trazodone Allergy Verified 05/08/18 19:52 trimethoprim [From Bactrim] Allergy Verified 05/08/18 19:52 Medications: Current Medications Acetaminophen (Tylenol) 650 mg PO Q4H PRN PRN Reason: Headache/Fever or Pain Acetaminophen (Tylenol) 650 mg [place] Q4H PRN PRN Reason: Headache/Fever or Pain Bisacodyl (Dulcolax) 10 mg PO DAILYPRN PRN PRN Reason: Constipation Dextrose/Water (Dextrose 50%) 25 gm SLOW IVP PRN PRN PRN Reason: Hypoglycemia Glucagon (Glucagon) 1 mg IM PRN PRN PRN Reason: Hypoglycemia Insulin Human Regular 100 (units/ Sodium Chloride) 101 mls @ 5.05 mls/hr IVPB INF MIKHAIL PRN Reason: 5 UNITS/HR Dextrose/Sodium Chloride (D5 1/2 Ns) 1,000 mls @ 250 mls/hr IV .Q4H PRN; Protocol PRN Reason: Step 4 of DKA Protocol Potassium Chloride/Dextrose/Sod Cl (D5 1/2 Ns W/20 Meq Kcl) 1,000 mls @ 250 mls /hr IV .Q4H PRN; Protocol PRN Reason: Step 4 of DKA Protocol Last Admin: 06/19/18 08:51 Dose: 1,000 mls Insulin Human Regular 100 (units/ Sodium Chloride) 101 mls @ 0 mls/hr IVPB INF MIKHAIL; Titrate PRN Reason: Protocol Sodium Chloride (Normal Saline 0.9%) 1,000 mls @ 500 mls/hr IV .Q2H PRN; Protocol PRN Reason: Step 1 of DKA Protocol Last Admin: 06/18/18 19:36 Dose: 1,000 mls Sodium Chloride (Normal Saline 0.9%) 1,000 mls @ 1,000 mls/hr IV .Q1H PRN; Protocol PRN Reason: Step 1 of DKA Protocol Sodium Chloride (Normal Saline 0.9%) 1,000 mls @ 250 mls/hr IV .Q4H PRN; Protocol PRN Reason: SEE STEP 3 OF DKA PROTOCOL Sodium Chloride (Normal Saline 0.9%) 1,000 mls @ 500 mls/hr IV .Q2H PRN; Protocol PRN Reason: Step 2 of DKA Protocol Potassium Chloride/Sodium Chloride (Ns 0.9% W/ 20 Meq Kcl) 1,000 mls @ 500 mls/ hr IV .Q2H PRN; Protocol PRN Reason: Step 2 of DKA Protocol Last Admin: 06/18/18 23:39 Dose: 1,000 mls Potassium Chloride/Sodium Chloride (Ns 0.9% W/ 20 Meq Kcl) 1,000 mls @ 250 mls/ hr IV .Q4H PRN; Protocol PRN Reason: SEE STEP 3 OF DKA PROTOCOL Potassium Chloride 40 meq/ (Sodium Chloride) 270 mls @ 135 mls/hr IVPB ASDIR PRN PRN Reason: FOR SERUM K+ 2.5 - 3.5 Potassium Chloride 40 meq/ (Device) 100 mls @ 50 mls/hr IVPB ASDIR PRN PRN Reason: FOR SERUM K+ 2.5 - 3.5 Magnesium Sulfate 1 gm/ Sodium (Chloride) 102 mls @ 102 mls/hr IV PRN PRN PRN Reason: MAG LEVEL 1.4 - 2.0 Magnesium Sulfate 2 gm/ Device 100 mls @ 100 mls/hr IVPB ASDIR PRN PRN Reason: MAGNESIUM < 1.4 Potassium Phosphate 9 mmol/ (Sodium Chloride) 103 mls @ 25.75 mls/hr IVPB ASDIR PRN PRN Reason: Phosphate 1.0-1.8 Potassium Phosphate 12 mmol/ (Sodium Chloride) 254 mls @ 63.5 mls/hr IV ASDIR PRN PRN Reason: Serum phosphate 0.5-0.9 Potassium Phosphate 15 mmol/ (Sodium Chloride) 255 mls @ 63.75 mls/hr IV ASDIR PRN PRN Reason: Serum Phos < 0.5 Insulin Glargine 30 units/ (Miscellaneous Medication) 0.3 mls @ 0 mls/hr SC QAM MIKHAIL Insulin Glargine 30 units/ (Miscellaneous Medication) 0.3 mls @ 0 mls/hr SC HS MIKHAIL Dextrose/Water (D5w) 1,000 mls @ 0 mls/hr IV .Q0M PRN; As Directed PRN Reason: Hypoglycemia Insulin Human Lispro (Humalog) 10 units SC 1200 MIKHAIL Last Admin: 06/19/18 11:42 Dose: 10 units Insulin Human Lispro (Humalog) 10 units SC 1700 MIKHAIL Insulin Human Lispro (Humalog) 10 units SC 0800 MIKHAIL Magnesium Oxide (Magnesium Oxide) 400 mg PO BIDPRN PRN PRN Reason: FOR SERUM MAG 1.4 - 2.0 Magnesium Oxide (Magnesium Oxide) 800 mg PO PRN PRN PRN Reason: FOR SERUM MAG < 1.4 Miscellaneous Medication (Phos-Nak) 1 pkt PO TIDPRN PRN PRN Reason: FOR PHOS LEVEL 1.0 - 1.8 Miscellaneous Medication (Phos-Nak) 2 pkt PO TIDPRN PRN PRN Reason: FOR PHOS LEVEL 0.5 - 1.0 Morphine Sulfate (Morphine) 2 mg SLOW IVP Q4H PRN PRN Reason: Pain Last Admin: 06/19/18 13:05 Dose: 2 mg Ccu Electrolyte (Replacement Protocol) 0 each FS PRN PRN PRN Reason: FOR ELECTROLYTE REPLACEMENT Ondansetron HCl (Zofran) 4 mg SLOW IVP Q4H PRN PRN Reason: Nausea/Vomiting Last Admin: 06/19/18 08:50 Dose: 4 mg Potassium Chloride (K-Dur) 40 meq PO ASDIR PRN PRN Reason: FOR SERUM K+ 2.5 - 3.5 Potassium Chloride (Klor-Con) 40 meq PER TUBE ASDIR PRN PRN Reason: FOR SERUM K+ 2.5-3.5
[2018-06-19] MEDS ORDERED: HumaLOG 300 UNITS/3 ML VIAL SC SCH (17:00)
[2018-06-20 04:50] LABS: Anion Gap 10 mmol/L (10-20); BUN (Urea Nitrogen) 6 mg/dL (8.9-20.6); Calc. Creatinine Clearance 90 mL/min (70-130); Calcium 8.6 mg/dL (7.8-10.44); Carbon Dioxide 24 mmol/L (22-29); Chloride 107 mmol/L (98-107); Estimated GFR-MDRD Greater than 90; Glucose 270 mg/dL (70-105); Potassium 3.2 mmol/L (3.5-5.1); Sodium 138 mmol/L (136-145)
[2018-06-20 05:20] LABS: Band 4 % (5-11); Eosinophils 1 % (0-10); Hemoglobin 14.1 g/dL (14.0-18.0); Lymphocytes 54 % (21-51); MDiff Complete? YES; Mean Corpuscular HGB CONC 36.6 g/dL (32.0-36.0); Mean Corpuscular Hemoglobin 33.9 pg (27.0-31.0); Mean Corpuscular Volume 92.7 fL (78.0-98.0); Mean Platelet Volume 6.6 fL (7.4-10.4); Monocytes 5 % (0-10); Neutrophil 36 % (42-75); Platelet Count 307 thou/uL (130-400); RBC Distribution Width 13.2 % (11.5-14.5); Red Blood Cell (RBC) Count 4.15 mill/uL (4.70-6.10); White Blood Cell (WBC) Count 8.3 thou/uL (4.8-10.8)
[2018-06-20] MEDS ORDERED: HumaLOG 300 UNITS/3 ML VIAL SC SCH (08:00)
[2018-06-20] MEDS ORDERED: Potassium Chloride 20 MEQ TAB PO SCH (08:15)
[2018-06-20] MEDS ORDERED: Insulin Glargine 30 UNITS in Pre-Filled Syringe 1 EACH SC SCH (09:00)
[2018-06-20 11:32] VITALS: BP 120/73; TEMP 98.1
[2018-06-20] MEDS: HumaLOG 300 UNITS/3 ML VIAL SC SCH (11:51)
--- NOTE | 2018-06-20 18:42 | DIS ---
DATE OF ADMISSION: 06/18/2018 DATE OF DISCHARGE: 06/20/2018 PRIMARY CARE PROVIDER: None. DISCHARGE DIAGNOSES: 1. Diabetic ketoacidosis. 2. Dehydration. 3. Metabolic acidosis. 4. Acute kidney injury. CONDITION OF PATIENT ON THE DAY OF DISCHARGE: Stable. I assessed Mr. Roldan on the day of discha rge. He denies any chest pain or shortness of breath. He feels better. Vital signs are stable. S1 and S2 are heard, regular. Lungs are clear to auscultation bilaterally. HOSPITAL COURSE: Mr. Roldan is a pleasant 22-year-old gentleman who was admitted to [facility] on 06/18/2018 for diabetic ketoacidosis in the context of not taking his insulin for 2 days. He was admitted to [facility] and treated for DKA per protocol. He continued to improve with treatment and showed significant improvement by 06/20/2018. He is being discharged home in a stable condition. DISCHARGE MEDICATIONS: Humalog 15 units 3 times a day and Tresiba 30 units 2 times a day. On the day of discharge, he has white count 8300, hemoglobin 14.1, platelet count 307,000. Sodium 13 8, potassium 3.2, which is being replaced and creatinine 0.92. DISCHARGE DESTINATION: Home. TOTAL AMOUNT OF TIME SPENT COORDINATING THIS DISCHARGE: 33 minutes.
== END 2018-06-20 12:47 | disposition home or self-care (01) | DRG 638 ==
LOC: ERS 11:45 → IMCU/EMU 15:11 → T4-A 06-19 17:18
PROVIDERS: ADMIT Internal Medicine; ATTEND Internal Medicine
DX: E10.10 Type 1 diabetes mellitus with ketoacidosis without coma (principal); N17.9 Acute kidney failure, unspecified; E87.1 Hypo-osmolality and hyponatremia; Z91.14 Patient's other noncompliance with medication regimen; E10.40 Type 1 diabetes mellitus with diabetic neuropathy, unspecified; F31.9 Bipolar disorder, unspecified; E86.0 Dehydration; E87.6 Hypokalemia; Z88.2 Allergy status to sulfonamides; Z88.8 Allergy status to other drugs, medicaments and biological substances
CPT/HCPCS: 36415; 36416; 80048; 80053; 82010; 83735; 84100; 85025; 96361; 96365; 96366; 96375; 96376; J1815; J2270; J2405; J7050

== ENCOUNTER 2018-07-30 22:13 | Emergency (ER) | payer OTHER ==
[2018-07-30 22:56] LABS: #Basophils 0.1 thou/uL (0.0-0.2); #Eosinphils 0.1 thou/uL (0.0-0.7); #Lymphocytes 3.1 thou/uL (1.20-3.40); #Monocytes 0.5 thou/uL (0.11-0.59); #Neutrophils 4.8 thou/uL (1.40-6.50); %Basophils 0.8 % (0.0-1.0); %Monocytes 5.4 % (0.0-10.0); %Neutrophils 56.9 % (42.0-75.0); Hemoglobin 15.5 g/dL (14.0-18.0); Mean Corpuscular HGB CONC 35.7 g/dL (32.0-36.0); Mean Corpuscular Hemoglobin 33.6 pg (27.0-31.0); Mean Corpuscular Volume 94.2 fL (78.0-98.0); Mean Platelet Volume 6.9 fL (7.4-10.4); Platelet Count 331 thou/uL (130-400); Red Blood Cell (RBC) Count 4.62 mill/uL (4.70-6.10); White Blood Cell (WBC) Count 8.5 thou/uL (4.8-10.8)
[2018-07-30 23:06] LABS: Bilirubin Negative (Negative); Blood, Urine Negative (Negative); Clarity CLEAR (Clear); Glucose, Urine (Dipstick) >=1000 mg/dL (Negative); Leukocyte Negative (Negative); Nitrite Negative (Negative); Protein, Urine (Dipstick) Negative (Neg-Trace); Specific Gravity, Urine 1.029 (1.002-1.036); Urobilinogen 0.2 mg/dL (0.2-1.0)
[2018-07-30 23:16] LABS: ALT (SGPT) 24 U/L (8-55); AST (SGOT) 15 U/L (5-34); Albumin 3.6 g/dL (3.5-5.0); Alkaline Phosphatase 102 U/L (40-150); Anion Gap 16 mmol/L (10-20); BUN (Urea Nitrogen) 13 mg/dL (8.9-20.6); Bilirubin, Total 0.3 mg/dL (0.2-1.2); Calc. Creatinine Clearance 0 mL/min (70-130); Calcium 8.6 mg/dL (7.8-10.44); Carbon Dioxide 20 mmol/L (22-29); Chloride 99 mmol/L (98-107); Estimated GFR-MDRD 72; Globulin 2.8 g/dL (2.4-3.5); Potassium 4.8 mmol/L (3.5-5.1); Protein, Total 6.4 g/dL (6.0-8.3); Sodium 130 mmol/L (136-145)
[2018-07-30 23:18] LABS: Glucose 675 mg/dL (70-105)
[2018-07-30 23:45] LABS: Magnesium 1.8 mg/dL (1.6-2.6); Phosphorus 2.8 mg/dL (2.3-4.7)
[2018-07-31 00:26] LABS: Base Excess-Venous -0.6 mmol/L (0 (+/- 2.5)); Bicarbonate (HCO3v) 23.7 mmol/L (1.0-85.0); CO2 Tension (PvCO2) 37.2 mmHg (41.0-51.0); Calcium, Ionized 1.06 mmol/L (1.12-1.32); Hemoglobin - Calc 13.7 g/dL (12.0-18.0); O2 Tension (PvO2) 54.5 mmHg (35.0-45.0); Potassium 3.8 mmol/L (3.4-4.7); T. Carbon Dioxide 24.8 mmol/L (1.0-85.0); pH (Venous) 7.413 (7.35-7.45); vO2 Saturation-calc 88.4 % (94-98)
[2018-07-31] MEDS ORDERED: Insulin Regular 300 UNITS/3 ML VIAL ONE (01:00)
[2018-07-31] MEDS ORDERED: Acetaminophen 500 MG TAB ONE (01:41)
== END 2018-07-31 01:59 | disposition home or self-care (01) ==
LOC: ERS 22:13
DX: E10.65 Type 1 diabetes mellitus with hyperglycemia (principal); F31.9 Bipolar disorder, unspecified; Z87.891 Personal history of nicotine dependence
CPT/HCPCS: 36415; 36416; 80053; 81003; 82010; 82330; 82435; 82803; 83735; 84100; 84132; 84295; 85014; 85025; 96361; 96374; J1815

== ENCOUNTER 2018-08-17 19:21 | Inpatient (IN) | payer OTHER ==
[~2018-08-17 19:21] MED LIST: ISOVUE-370 76%-LOCM 1 ML ONE
[2018-08-17] MEDS ORDERED: Ketorolac Tromethamine 30 MG/ML VIAL ONE (20:12)
[2018-08-17 20:24] LABS: Bilirubin Negative (Negative); Blood, Urine Negative (Negative); Clarity CLEAR (Clear); Glucose, Urine (Dipstick) >=1000 mg/dL (Negative); Leukocyte Negative (Negative); Nitrite Negative (Negative); Protein, Urine (Dipstick) Negative (Neg-Trace); Specific Gravity, Urine 1.023 (1.002-1.036); Urobilinogen 0.2 mg/dL (0.2-1.0)
[2018-08-17 20:35] LABS: Amphetamine Not Detected (NotDetected); Barbiturates Screen Not Detected (NotDetected); Benzodiazepine Screen Not Detected (NotDetected); Cocaine Metabolite Screen Not Detected (NotDetected); Medtox Control Line Valid? VALID (VALID); Medtox Reader # READER 1; Methadone Not Detected (NotDetected); Methamphetamine Not Detected (NotDetected); Opiate Screen Not Detected (NotDetected); Oxycodone Screen Not Detected (NotDetected); Phencyclidine (PCP) Not Detected (NotDetected); THC/Cannabinoid Screen Not Detected (NotDetected); Tricyclic Screen Not Detected (NotDetected)
--- NOTE | 2018-08-17 21:02 | CT ---
CT ANGIOGRAM OF THE CHEST 08/17/18 COMPARISON: None. HISTORY: Chest pain, assess for pulmonary embolism. TECHNIQUE: Serial axial CT imaging at 2.5 mm intervals from thoracic inlet through upper abdomen with IV contras t using a CT angiogram protocol. Coronal and oblique sagittal 3D reformatted imaging obtained. FINDINGS: The lung parenchyma appears grossly unremarkable. No pneumothorax is seen. Imaged upper abdomen unrem arkable as well. There is fluid within the stomach. There is mild wall prominence of the distal esoph emory which may be secondary to underdistention or esophageal wall thickening. The imaged aorta demonstrates no evidence for dissection or aneurysm. There is narrowing at the origi n of the celiac axis. There is adequate opacification of the pulmonary arterial vasculature with no evidence for acute pulm onary embolism. No acute osseous abnormality. IMPRESSION: No evidence for acute pulmonary embolism. Incidental findings as above. POS: PHYLICIA
[2018-08-17] MEDS ORDERED: Insulin Regular 300 UNITS/3 ML VIAL ONE (22:15)
[2018-08-17] MEDS ORDERED: Insulin Regular 100 units/100 ml in NS IVPB SCH (22:15)
[2018-08-17 22:38] LABS: #Basophils 0.1 thou/uL (0.0-0.2); #Lymphocytes 2.1 thou/uL (1.20-3.40); #Monocytes 0.7 thou/uL (0.11-0.59); #Neutrophils 9.2 thou/uL (1.40-6.50); %Basophils 0.9 % (0.0-1.0); %Eosinophils 0.3 % (0.0-10.0); %Lymphocytes 17.1 % (21.0-51.0); %Monocytes 5.6 % (0.0-10.0); %Neutrophils 76.1 % (42.0-75.0); Hemoglobin 17.4 g/dL (14.0-18.0); Mean Corpuscular HGB CONC 34.1 g/dL (32.0-36.0); Mean Corpuscular Hemoglobin 32.5 pg (27.0-31.0); Mean Corpuscular Volume 95.3 fL (78.0-98.0); Mean Platelet Volume 6.7 fL (7.4-10.4); Platelet Count 349 thou/uL (130-400); Red Blood Cell (RBC) Count 5.37 mill/uL (4.70-6.10); White Blood Cell (WBC) Count 12.1 thou/uL (4.8-10.8)
[2018-08-17 22:44] LABS: ALT (SGPT) 16 U/L (8-55); AST (SGOT) 13 U/L (5-34); Albumin 3.6 g/dL (3.5-5.0); Alkaline Phosphatase 84 U/L (40-150); BUN (Urea Nitrogen) 18 mg/dL (8.9-20.6); Bilirubin, Total 0.3 mg/dL (0.2-1.2); CK (CPK) 26 U/L (30-200); Calc. Creatinine Clearance 0 mL/min (70-130); Chloride 100 mmol/L (98-107); Estimated GFR-MDRD 57; Globulin 2.7 g/dL (2.4-3.5); Glucose 520 mg/dL (70-105); Lipase 12 U/L (8-78); Magnesium 1.8 mg/dL (1.6-2.6); Phosphorus 2.1 mg/dL (2.3-4.7); Potassium 4.4 mmol/L (3.5-5.1); Protein, Total 6.3 g/dL (6.0-8.3); Sodium 129 mmol/L (136-145)
[2018-08-17 22:45] LABS: Acetaminophen Less than 6.0 mcg/mL (10.0-30.0); Alcohol Less than 10 mg/dL (Less than 10); Salicylate Less than 8.0 mg/dL (15.0-30.0)
[2018-08-17 22:47] LABS: CKMB 3.1 ng/mL (0-6.6); Troponin I Less than 0.010 ng/mL (< 0.028)
[2018-08-17 22:48] LABS: Carbon Dioxide Less than 8 mmol/L (22-29)
[2018-08-17] MEDS ORDERED: Morphine 4 MG/ML VIAL ONE (23:25)
[2018-08-17] MEDS ORDERED: NS 0.9% w/ 20 MEQ KCL 1,000 ML IV SCH (23:30)
[2018-08-18] MEDS ORDERED: Labetalol HCl 100 MG/20 ML VIAL ONE (00:39)
[2018-08-18] MEDS ORDERED: Ondansetron HCl/PF 4 MG/2 ML Vial IVP PRN (01:49)
[2018-08-18] MEDS ORDERED: Acetaminophen 325 MG TAB PO PRN (01:49)
[2018-08-18] MEDS ORDERED: Dextrose 5 %-0.45 % NaCl 1,000 ML IV PRN (01:55)
[2018-08-18] MEDS ORDERED: Sodium Chloride 0.9% 1,000 ML IV PRN ×4 (01:55)
[2018-08-18] MEDS ORDERED: NS 0.9% w/ 20 MEQ KCL 1,000 ML IV PRN ×2 (01:55)
[2018-08-18] MEDS ORDERED: D5 1/2 NS w/20 mEq KCL 1,000 ML IV PRN (01:55)
[2018-08-18] MEDS ORDERED: CCU Electrolyte Replacement 1 EACH IVPB ONE (01:55)
[2018-08-18] MEDS ORDERED: CCU ELECTROLYTE REPLACEMENT PROTOCOL FS PRN (02:04)
[2018-08-18] MEDS ORDERED: Magnesium Oxide 400 MG TAB PO PRN ×2 (02:04)
[2018-08-18] MEDS ORDERED: Potassium Phosphate 12 MMOL in Sodium Chloride 0.9% 250 ML 250 ML IV PRN (02:04)
[2018-08-18] MEDS ORDERED: Potassium Chloride 20 MEQ TAB PO PRN (02:04)
[2018-08-18] MEDS ORDERED: Potassium Phosphate 9 MMOL in Sodium Chloride 0.9% 100 ML IVPB PRN (02:04)
[2018-08-18] MEDS ORDERED: Potassium Chloride 40 MEQ in Sodium Chloride 0.9% 250 ML 250 ML IVPB PRN (02:04)
[2018-08-18] MEDS ORDERED: Potassium Phosphate 15 MMOL in Sodium Chloride 0.9% 250 ML 250 ML IV PRN (02:04)
[2018-08-18] MEDS ORDERED: Magnesium 2 GM/NS 0.9% 100 ML 2 GM in Premix Bag 1 BAG IVPB PRN (02:04)
[2018-08-18] MEDS ORDERED: Potassium Chloride 40 MEQ in Premix Bag 1 BAG IVPB PRN (02:04)
[2018-08-18 02:06] VITALS: BMI 17.7
[2018-08-18] MEDS: Sodium Chloride 0.9% 1,000 ML IV SCH ×4 (02:27→16:55)
[2018-08-18] MEDS ORDERED: Ketorolac Tromethamine 30 MG/ML VIAL IVP SCH (03:30)
[2018-08-18 03:59] LABS: #Basophils 0.1 thou/uL (0.0-0.2); #Lymphocytes 4.2 thou/uL (1.20-3.40); #Monocytes 1.5 thou/uL (0.11-0.59); #Neutrophils 9.2 thou/uL (1.40-6.50); %Basophils 0.8 % (0.0-1.0); %Eosinophils 0.3 % (0.0-10.0); %Monocytes 9.8 % (0.0-10.0); %Neutrophils 61.1 % (42.0-75.0); Hemoglobin 17.4 g/dL (14.0-18.0); Mean Corpuscular HGB CONC 34.5 g/dL (32.0-36.0); Mean Corpuscular Hemoglobin 32.8 pg (27.0-31.0); Mean Platelet Volume 6.7 fL (7.4-10.4); Platelet Count 336 thou/uL (130-400)
[2018-08-18 04:21] LABS: Anion Gap 19 mmol/L (10-20); BUN (Urea Nitrogen) 16 mg/dL (8.9-20.6); Calc. Creatinine Clearance 72 mL/min (70-130); Calcium 8.2 mg/dL (7.8-10.44); Carbon Dioxide 11 mmol/L (22-29); Chloride 110 mmol/L (98-107); Estimated GFR-MDRD 73; Glucose 227 mg/dL (70-105); Magnesium 1.9 mg/dL (1.6-2.6); Phosphorus 1.5 mg/dL (2.3-4.7); Potassium 3.9 mmol/L (3.5-5.1); Sodium 136 mmol/L (136-145)
[2018-08-18 04:22] LABS: Albumin 3.7 g/dL (3.5-5.0); Anion Gap 18 mmol/L (10-20); BUN (Urea Nitrogen) 16 mg/dL (8.9-20.6); Calc. Creatinine Clearance 71 mL/min (70-130); Calcium 8.2 mg/dL (7.8-10.44); Carbon Dioxide 11 mmol/L (22-29); Chloride 111 mmol/L (98-107); Estimated GFR-MDRD 72; Glucose 233 mg/dL (70-105); Phosphorus 1.5 mg/dL (2.3-4.7); Potassium 3.9 mmol/L (3.5-5.1); Sodium 136 mmol/L (136-145)
[2018-08-18 06:35] LABS: Anion Gap 13 mmol/L (10-20); BUN (Urea Nitrogen) 12 mg/dL (8.9-20.6); Calc. Creatinine Clearance 87 mL/min (70-130); Calcium 7.6 mg/dL (7.8-10.44); Carbon Dioxide 13 mmol/L (22-29); Chloride 111 mmol/L (98-107); Estimated GFR-MDRD 90; Glucose 189 mg/dL (70-105); Potassium 3.7 mmol/L (3.5-5.1); Sodium 133 mmol/L (136-145)
[2018-08-18] MEDS ORDERED: Dextrose 5% in Water 1,000 ML IV PRN (08:20)
[2018-08-18] MEDS ORDERED: Dextrose 50% Abboject 50 ML SYRINGE SLOW IVP PRN (08:20)
--- NOTE | 2018-08-18 08:23 | PDOC.EVN ---
Event Note - Event Note Event Note: Feels better. Hungry. BP has been running high. Heart - regular, but borderline tachy. Lungs clear, abd benign. Gap is closed. Will stop the gtt, start SSI, and a regular diet. Will change back to diabetic diet when more stable and transitioning back to his insulin regimen. Continue fluids.
--- NOTE | 2018-08-18 08:57 | HP ---
CHIEF COMPLAINT: Chest pain. HISTORY OF PRESENT ILLNESS: This is a 23-year-old male with past medical history of diabetes mellitu s, type 1, on insulin; presenting with chest pain. On 08/13/2018, the patient had an argument with h is little brother and patient states that the argument might have triggered on anxiety attack, making patient feel some chest pain running over the chest. The patient stated that the chest pain became severe and then he started to feel very uncomfortable. On the pain scale of 0-10, the patient's ches t pain was 9/10. The patient then took a couple of days to rest; however, the patient was still feel ing uncomfortable, so patient decided to come to the emergency room to be evaluated. In the emergenc y room, the patient was found to have a blood sugar of 520 and the patient was in full blown DKA. Th e patient, however, denied any nausea, vomiting, diarrhea, headache, fevers, but endorsed chest pain. REVIEW OF SYSTEMS: Positive for chest pain, otherwise as documented in the HPI. All other systems w ere reviewed and are negative. PAST MEDICAL HISTORY: Diabetes mellitus, type 1. FAMILY HISTORY: Reviewed and noncontributory to the visit. PAST SURGICAL HISTORY: The patient has had a right humerus surgery. SOCIAL HISTORY: The patient stated that he lives with his uncle and his little brother and the patie nt is a former tobacco smoker. The patient stated that he has been smoking since he was 8 years old. He started to quit in the past year and the patient said that now he is doing vape. PSYCHIATRIC HISTORY: The patient has a psych history of bipolar, depression, anxiety. ALLERGIES: The patient is allergic to BACTRIM and TRAZODONE. CURRENT MEDICATIONS: The patient is on insulin, Humalog and Tresiba. PHYSICAL EXAMINATION: VITAL SIGNS: The patient's blood pressure was 170/130, pulse 109, respiratory rate of 17, temperatur e of 97.7, oxygen saturation of 100% on room air. GENERAL: The patient is speaking in full sentences, tachycardic, does not appear to be any acute dis tress. The patient looks fatigued. HEENT: Normocephalic, atraumatic. Pupils are equally round and reactive to light. Extraocular move ments are intact. No scleral icterus. Mucous membranes are dry. NECK: Trachea is midline. No JVD. Full range of motion. LUNGS: Clear to auscultation bilaterally. No wheezing, no rales, no rhonchi is appreciated. CARDIAC: The patient has a tachycardia. No murmurs appreciated. ABDOMEN: Soft, nontender, nondistended. Positive bowel sounds in all quadrants. No peritoneal sign s, no rigidity, no guarding. EXTREMITIES: The patient has a 5/5 upper extremity strength and 5/5 lower extremity strength. Good pulse in the upper and lower extremities bilaterally. No edema noted. NEUROLOGIC: Cranial nerves II-XII grossly intact. No neurologic deficits noted. SKIN: Warm, dry, and intact. PSYCHIATRIC: The patient is alert and oriented x3, not in acute distress. The patient has normal af fect. ED COURSE: In the ED, the patient received potassium, normal saline, morphine, and labetalol 10 mg. EKG in the ED showed a sinus tachycardia with a rate of about 113. IMAGING: Chest x-ray showed no cardiopulmonary process. LABORATORY DATA: WBC 12.1, hemoglobin is 17.4, hematocrit of 51, MCV of 95.3, RDW of 12, platelet of 349. Sodium 121, potassium 4.4, chloride of 100, carbon dioxide of less than 8, anion gap cannot be calculated. BUN 18, creatinine 1.54, GFR 57, glucose of 520. Phosphorus of 2.1. Creatine kinase o f 26. Troponins less than 0.010. The patient had ketones in the urine and urine drug tox is negativ e. ASSESSMENT AND PLAN: 1. This is a 23-year-old male with past medical history of diabetes mellitus, type 1, being admitted for diabetic ketoacidosis. The patient has been started on insulin protocol. We will replete all e lectrolytes and we are admitting the patient to the IMCU. 2. History of anxiety, currently stable. We will continue to monitor the patient. 3. Hypertension. The patient has been given labetalol 10. We will monitor the patient's blood pres sure closely. We will continue IV fluids and we will give blood pressure medication as needed. 4. Sinus tachycardia. The patient's heart rate is in 113. We are going to continue IV fluids. 5. Acute kidney injury, likely due to dehydration. We will continue fluids and we will monitor the patient's labs in the morning. 6. Electrolyte abnormalities. We will replete all electrolyte abnormality. 7. Chest pain, at this point, stable. We will give patient morphine 2 mg for pain and we will follo w up troponins. 8. Deep venous thrombosis and gastrointestinal prophylaxis. We will do sequential compression devic es for DVT prophylaxis and we will make patient n.p.o. This case was dictated by Dr. Kevin Vazquez on patient Je Roldan.
[2018-08-18] MEDS: Famotidine/PF 20 mg/2ml Vial SLOW IVP SCH ×2 (09:39→20:24)
[2018-08-18] MEDS: HumaLOG 300 UNITS/3 ML VIAL SC PRN ×3 (11:49→20:50)
[2018-08-18] MEDS ORDERED: Mag-Al 1200 mg/1200 mg/30 ML UDCUP PO PRN (13:51)
[2018-08-18] MEDS: traMADol HCl 50 MG TAB PO PRN ×2 (14:08→21:04)
[2018-08-19] MEDS: Sodium Chloride 0.9% 1,000 ML IV SCH ×4 (00:20→08:27)
[2018-08-19] MEDS: HumaLOG 300 UNITS/3 ML VIAL SC PRN ×3 (01:06→20:12)
[2018-08-19] MEDS: traMADol HCl 50 MG TAB PO PRN ×2 (07:39→22:59)
[2018-08-19] MEDS: Famotidine/PF 20 mg/2ml Vial SLOW IVP SCH ×2 (07:40→20:16)
[2018-08-19 08:26] LABS: #Basophils 0.1 thou/uL (0.0-0.2); #Eosinphils 0.1 thou/uL (0.0-0.7); #Lymphocytes 3.8 thou/uL (1.20-3.40); #Monocytes 0.7 thou/uL (0.11-0.59); #Neutrophils 4.2 thou/uL (1.40-6.50); %Basophils 1.1 % (0.0-1.0); %Eosinophils 1.2 % (0.0-10.0); %Lymphocytes 42.5 % (21.0-51.0); %Neutrophils 47.3 % (42.0-75.0); Hemoglobin 14.9 g/dL (14.0-18.0); Mean Corpuscular Hemoglobin 32.4 pg (27.0-31.0); Mean Corpuscular Volume 92.6 fL (78.0-98.0); Mean Platelet Volume 6.4 fL (7.4-10.4); Platelet Count 282 thou/uL (130-400); RBC Distribution Width 11.7 % (11.5-14.5); Red Blood Cell (RBC) Count 4.62 mill/uL (4.70-6.10); White Blood Cell (WBC) Count 8.9 thou/uL (4.8-10.8)
[2018-08-19 08:39] LABS: Anion Gap 13 mmol/L (10-20); BUN (Urea Nitrogen) 7 mg/dL (8.9-20.6); Calc. Creatinine Clearance 90 mL/min (70-130); Calcium 8.6 mg/dL (7.8-10.44); Carbon Dioxide 23 mmol/L (22-29); Chloride 102 mmol/L (98-107); Estimated GFR-MDRD Greater than 90; Glucose 394 mg/dL (70-105); Potassium 3.3 mmol/L (3.5-5.1); Sodium 135 mmol/L (136-145)
[2018-08-19] MEDS ORDERED: Potassium Chloride 20 MEQ TAB PO SCH (09:00)
[2018-08-19] MEDS: Insulin Glargine 30 UNITS in Pre-Filled Syringe 1 EACH SC SCH ×2 (10:11→20:11)
[2018-08-19] MEDS: HumaLOG 300 UNITS/3 ML VIAL SC SCH ×2 (10:14→16:45)
--- NOTE | 2018-08-19 11:30 | PRG ---
DATE OF SERVICE: 08/19/2018 SUBJECTIVE: The patient reports that he is ready to go home. I expressed my concern that he had been here several times within the last few months with similar issues. He reports that once he simply broke his insulin bottle and on other time he simply forgot to take it. I believe stress is playing a big role in his problems. He has refused IV fluids overnight because he was afraid his IV was going to blow. He was placed on a regular diet in order to continue to have enough calories and sugar to be able to maintain adequate amounts of insulin to help resolve his DKA. However, in spite of my explanation to nursing , they had changed to a diabetic diet. Nursing reports the patient is eating copious amounts of food which is perfectly fine at this point. The patient reports that he frequently has tachycardia and states that often occurring after he eats meals. He continues to deny any drug or alcohol use. OBJECTIVE: VITAL SIGNS: Temperature 98.1, pulse 111, respirations 16, O2 sat 100% on room air, BP 130/87. GENERAL APPEARANCE: Very thin age appropriate male. He is in no distress. He is awake, alert, oriented, pleasant and cooperative. CARDIOVASCULAR: Tachycardic. He has a 2/6 flow murmur at the left lower sternal border. LUNGS: Clear to auscultation bilaterally with good chest wall expansion and air exchange. ABDOMEN: Soft, nontender and nondistended, positive bowel sounds, no masses, no organomegaly. EXTREMITIES: Warm and dry. LABORATORY DATA: Blood sugars have ranged from 220-408. ASSESSMENT AND PLAN: 1. Diabetic ketoacidosis. The patient is doing better; however, he has refused his fluids overnight. He takes Tresiba at home which we cannot specifically replicate pharmacy; however, I did speak with pharmacy and that is basically a one to one with Lantus. I will start his Lantus crossover dose today and try to emulate his usual home dose of insulin. We will keep him on a diabetic diet, but we will resume the fluids. If we can maintain adequate control and his labs are too terrible, we will consider sending him home in the morning. 2. Tachycardia. Patient has intermittent tachycardia looking at his previous admissions that were not uncommon, although his baseline heart rhythm is typically around 80s. I am going to check TSH just to make sure there is nothing going on there that could account for his tachycardia and recurrent DKA. On reviewing his records from previous admissions, it does not look like he has ever had that shaft. 3. Hypertension. The patient's blood pressure is intermittently elevated. Certainly something we will need to follow up with his primary care provider for , but it does not appear that it is something that would require urgent intervention. Depending on his TSH, he may be a good candidate for a beta oh. However, I need to be cautious in diabetic for concerns with hypoglycemia recognition. 4. Acute kidney injury appears to be resolved. We will recheck labs again this morning. LESLIE
[2018-08-20] MEDS: Sodium Chloride 0.9% 1,000 ML IV SCH ×2 (03:00→11:23)
[2018-08-20] MEDS: HumaLOG 300 UNITS/3 ML VIAL SC PRN (05:44)
[2018-08-20] MEDS: Famotidine/PF 20 mg/2ml Vial SLOW IVP SCH (07:36)
[2018-08-20] MEDS: HumaLOG 300 UNITS/3 ML VIAL SC SCH ×2 (07:36→11:27)
[2018-08-20 08:35] VITALS: BP 148/95; TEMP 98.3
[2018-08-20] MEDS: Insulin Glargine 30 UNITS in Pre-Filled Syringe 1 EACH SC SCH (09:16)
[2018-08-20 09:32] LABS: Anion Gap 10 mmol/L (10-20); BUN (Urea Nitrogen) Less than 4 mg/dL (8.9-20.6); Calc. Creatinine Clearance 154 mL/min (70-130); Calcium 8.1 mg/dL (7.8-10.44); Carbon Dioxide 28 mmol/L (22-29); Chloride 106 mmol/L (98-107); Estimated GFR-MDRD Greater than 90; Glucose 182 mg/dL (70-105); Sodium 141 mmol/L (136-145)
[2018-08-20 09:40] LABS: Potassium 2.8 mmol/L (3.5-5.1)
[2018-08-20] MEDS: traMADol HCl 50 MG TAB PO PRN (09:47)
[2018-08-20 09:55] LABS: Band 2 % (5-11); Eosinophils 2 % (0-10); Hemoglobin 12.9 g/dL (14.0-18.0); Lymphocytes 55 % (21-51); MDiff Complete? YES; Mean Corpuscular HGB CONC 35.1 g/dL (32.0-36.0); Mean Corpuscular Volume 93.9 fL (78.0-98.0); Mean Platelet Volume 6.2 fL (7.4-10.4); Monocytes 3 % (0-10); Neutrophil 37 % (42-75); PLT Morphology Comment Appears Adequate; Platelet Count 235 thou/uL (130-400); RBC Distribution Width 11.5 % (11.5-14.5); Reactive Lymphocytes 1 % (0-10); White Blood Cell (WBC) Count 8.3 thou/uL (4.8-10.8)
[2018-08-20] MEDS: Potassium Chloride 20 MEQ TAB PO SCH ×2 (11:27→14:42)
[2018-08-20 12:14] LABS: Base Excess-Venous -20.7 mmol/L (0 (+/- 2.5)); Bicarbonate (HCO3v) 5.4 mmol/L (1.0-85.0); Calcium, Ionized 0.88 mmol/L (1.12-1.32); Hemoglobin - Calc 19.4 g/dL (12.0-18.0); Potassium 4.4 mmol/L (3.4-4.7); T. Carbon Dioxide 5.9 mmol/L (1.0-85.0); pH (Venous) 7.143 (7.35-7.45); vO2 Saturation-calc 59.8 % (94-98)
[2018-08-20 12:16] LABS: CO2 Tension (PvCO2) 15.8 mmHg (41.0-51.0)
--- NOTE | 2018-08-21 01:19 | DIS ---
DATE OF ADMISSION: 08/18/2018 DATE OF DISCHARGE: 08/20/2018 PRIMARY CARE PROVIDER: Dariusz Mooney MD DISCHARGE DIAGNOSES: 1. Diabetic ketoacidosis. 2. Hypokalemia. 3. Leukocytosis. 4. Metabolic acidosis. CONDITION OF PATIENT ON THE DAY OF DISCHARGE: Stable. I assessed Mr. Roldan on the day of discha rge. He denies any chest pain or shortness of breath. Vital signs are stable. S1 and S2 are heard, regular. Lungs are clear to auscultation bilaterally. DISCHARGE MEDICATIONS: Humalog insulin 15 units 3 times a day and Tresiba 30 units subcutaneously 2 times a day. I am sending a prescription for one vial of Humalog insulin. HOSPITAL COURSE: Mr. Roldan is a pleasant 23-year-old gentleman who was admitted to [facility] for diabetic ketoacidosis on 08/18/2018. Please refer Dr. Vazquez's history and physical note, dated 08/18/2018 for further details. He was started on DKA protocol and improved cli nically and biochemically. He is being discharged home in a stable condition. At the time of admission, he had leukocytosis, which resolved by the day of discharge. Final blood cultures are pending at the time of this dictation. He is advised to follow up with his primary care provider for final blood culture report. On the day of discharge, he has white count 8300, hemoglobin 12.9, platelet count 235,000. Sodium 14 1, potassium 2.8, which is being replaced, and creatinine 0.58. He had a normal TSH of 2.2292 during this hospitalization. On the day of admission, he had CT angiogram of the chest, which did not show any acute pulmonary emb olism. There was mild wall prominence of the distal esophagus, which may be secondary to under diste ntion or esophageal wall thickening. Many thanks for allowing me to participate in your patient's care. Please feel free to contact me wi th any questions or concerns. DISCHARGE DESTINATION: Home. TOTAL AMOUNT OF TIME SPENT COORDINATING THIS DISCHARGE: 33 minutes.
== END 2018-08-20 16:15 | disposition home or self-care (01) | DRG 638 ==
LOC: ERS 19:21 → CCU 08-18 01:58 → T4-B 08-18 14:36
PROVIDERS: ADMIT Internal Medicine; ATTEND Internal Medicine
DX: E10.10 Type 1 diabetes mellitus with ketoacidosis without coma (principal); N17.9 Acute kidney failure, unspecified; Z88.2 Allergy status to sulfonamides; Z88.8 Allergy status to other drugs, medicaments and biological substances; F41.9 Anxiety disorder, unspecified; F31.9 Bipolar disorder, unspecified; Z79.4 Long term (current) use of insulin; I10 Essential (primary) hypertension; E86.0 Dehydration; R00.0 Tachycardia, unspecified; E87.6 Hypokalemia; D72.829 Elevated white blood cell count, unspecified
CPT/HCPCS: 36415; 36416; 71275; 80048; 80053; 80306; 80307; 81003; 82010; 82330; 82550; 82553; 82803; 83605; 83690; 83735; 83930; 84100; 84443; 84484; 85025; 87040; 93005; J1815; J1885; J2270; J2405; J7050; S0028

== ENCOUNTER 2018-08-31 09:02 | Inpatient (IN) | payer OTHER ==
[2018-08-31 09:26] LABS: Base Excess-Venous -10.8 mmol/L (0 (+/- 2.5)); Bicarbonate (HCO3v) 12.1 mmol/L (1.0-85.0); CO2 Tension (PvCO2) 22.1 mmHg (41.0-51.0); Calcium, Ionized 1.25 mmol/L (1.12-1.32); O2 Tension (PvO2) 60.2 mmHg (35.0-45.0); Potassium 3.4 mmol/L (3.4-4.7); T. Carbon Dioxide 12.8 mmol/L (1.0-85.0); pH (Venous) 7.347 (7.35-7.45); vO2 Saturation-calc 90.2 % (94-98)
[2018-08-31 09:26] LABS: #Basophils 0.1 thou/uL (0.0-0.2); #Lymphocytes 2.9 thou/uL (1.20-3.40); #Monocytes 0.6 thou/uL (0.11-0.59); #Neutrophils 8.8 thou/uL (1.40-6.50); %Basophils 0.8 % (0.0-1.0); %Eosinophils 0.3 % (0.0-10.0); %Lymphocytes 23.2 % (21.0-51.0); %Monocytes 4.9 % (0.0-10.0); %Neutrophils 70.8 % (42.0-75.0); Hemoglobin 16.6 g/dL (14.0-18.0); Mean Corpuscular HGB CONC 35.2 g/dL (32.0-36.0); Mean Corpuscular Hemoglobin 32.5 pg (27.0-31.0); Mean Corpuscular Volume 92.2 fL (78.0-98.0); Mean Platelet Volume 6.1 fL (7.4-10.4); Platelet Count 385 thou/uL (130-400); RBC Distribution Width 12.5 % (11.5-14.5); White Blood Cell (WBC) Count 12.4 thou/uL (4.8-10.8)
[2018-08-31 09:47] LABS: ALT (SGPT) 16 U/L (8-55); AST (SGOT) 12 U/L (5-34); Albumin 3.9 g/dL (3.5-5.0); Alkaline Phosphatase 80 U/L (40-150); Anion Gap 22 mmol/L (10-20); BUN (Urea Nitrogen) 16 mg/dL (8.9-20.6); Bilirubin, Total 0.5 mg/dL (0.2-1.2); Calc. Creatinine Clearance 0 mL/min (70-130); Carbon Dioxide 13 mmol/L (22-29); Chloride 97 mmol/L (98-107); Estimated GFR-MDRD 61; Glucose 293 mg/dL (70-105); Potassium 3.4 mmol/L (3.5-5.1); Protein, Total 6.9 g/dL (6.0-8.3); Sodium 129 mmol/L (136-145)
[2018-08-31 10:19] LABS: Magnesium 1.6 mg/dL (1.6-2.6)
[2018-08-31] MEDS ORDERED: Insulin Regular 100 units/100 ml in NS IVPB SCH (10:45)
[2018-08-31] MEDS ORDERED: D5 1/2 NS w/20 mEq KCL 1,000 ML IV PRN (11:23)
[2018-08-31] MEDS ORDERED: CCU Electrolyte Replacement 1 EACH IVPB ONE (11:23)
[2018-08-31] MEDS ORDERED: Dextrose 5 %-0.45 % NaCl 1,000 ML IV PRN (11:23)
[2018-08-31] MEDS ORDERED: Acetaminophen 325 MG TAB PO PRN (11:23)
[2018-08-31] MEDS ORDERED: NS 0.9% w/ 20 MEQ KCL 1,000 ML IV PRN ×2 (11:23)
[2018-08-31] MEDS ORDERED: Ondansetron HCl/PF 4 MG/2 ML Vial IVP PRN ×2 (11:23→13:36)
[2018-08-31] MEDS ORDERED: Sodium Chloride 0.9% 1,000 ML IV PRN ×4 (11:23)
[2018-08-31] MEDS ORDERED: Ondansetron ODT 4 MG TAB PO PRN ×2 (11:23→13:36)
[2018-08-31] MEDS ORDERED: Potassium Phosphate 15 MMOL in Sodium Chloride 0.9% 250 ML 250 ML IVPB SCH (11:30)
[2018-08-31] MEDS ORDERED: Potassium Chloride 20 MEQ TAB PO PRN (11:33)
[2018-08-31] MEDS ORDERED: CCU ELECTROLYTE REPLACEMENT PROTOCOL FS PRN (11:33)
[2018-08-31] MEDS ORDERED: Potassium Chloride 40 MEQ in Sodium Chloride 0.9% 250 ML 250 ML IVPB PRN (11:33)
[2018-08-31] MEDS ORDERED: Magnesium 2 GM/NS 0.9% 100 ML 2 GM in Premix Bag 1 BAG IVPB PRN (11:33)
[2018-08-31] MEDS ORDERED: Magnesium Oxide 400 MG TAB PO PRN ×2 (11:33)
[2018-08-31] MEDS ORDERED: Potassium Phosphate 12 MMOL in Sodium Chloride 0.9% 250 ML 250 ML IV PRN (11:33)
[2018-08-31] MEDS ORDERED: Potassium Phosphate 15 MMOL in Sodium Chloride 0.9% 250 ML 250 ML IV PRN (11:33)
[2018-08-31] MEDS ORDERED: Potassium Chloride 40 MEQ in Premix Bag 1 BAG IVPB PRN (11:33)
[2018-08-31] MEDS ORDERED: Potassium Phosphate 9 MMOL in Sodium Chloride 0.9% 100 ML IVPB PRN (11:33)
[2018-08-31] MEDS ORDERED: Magnesium 2 GM/50 ML 2 GM in Premix Bag 1 BAG IVPB SCH (11:45)
[2018-08-31 12:50] VITALS: BMI 16.0
[2018-08-31 13:17] LABS: Lactic Acid 1.3 mmol/L (0.5-2.2)
[2018-08-31 13:23] LABS: Anion Gap 13 mmol/L (10-20); BUN (Urea Nitrogen) 14 mg/dL (8.9-20.6); Calc. Creatinine Clearance 80 mL/min (70-130); Calcium 9.3 mg/dL (7.8-10.44); Carbon Dioxide 18 mmol/L (22-29); Chloride 105 mmol/L (98-107); Estimated GFR-MDRD 86; Glucose 107 mg/dL (70-105); Potassium 3.4 mmol/L (3.5-5.1); Sodium 133 mmol/L (136-145)
[2018-08-31] MEDS ORDERED: Dextrose 50% Abboject 50 ML SYRINGE SLOW IVP PRN (13:35)
[2018-08-31] MEDS ORDERED: Insulin Regular 300 UNITS/3 ML VIAL SC PRN ×2 (13:35)
[2018-08-31] MEDS ORDERED: Dextrose 5% in Water 1,000 ML IV PRN (13:35)
[2018-08-31] MEDS ORDERED: Insulin Glargine 10 UNITS in Pre-Filled Syringe 1 EACH SC SCH (14:15)
[2018-08-31] MEDS: Potassium Chloride 40 MEQ in Sodium Chloride 0.45% 1,000 ML IV SCH ×2 (14:25→22:42)
[2018-08-31] MEDS ORDERED: Insulin Regular 300 UNITS/3 ML VIAL SC SCH (14:30)
[2018-08-31] MEDS ORDERED: K-Phos Neutral 250 MG TAB PO SCH ×2 (14:30)
[2018-08-31] MEDS: K-Phos Neutral 250 MG TAB PO SCH (15:38)
[2018-08-31] MEDS: Insulin Regular 300 UNITS/3 ML VIAL SC PRN (16:56)
--- NOTE | 2018-08-31 17:34 | HP ---
DATE OF ADMISSION: 08/31/2018 PRIMARY CARE PHYSICIAN: [facility] call admission. CHIEF COMPLAINT: Generalized weakness with elevated blood sugar. HISTORY OF PRESENT ILLNESS: Patient is a 23-year-old white male with diabetes mellitus type 1, prese nted to the emergency room with above complaints. The patient has a long history of diabetes mellitus type 1. He currently takes 30 units of Tresiba t wice a day along with Humalog 15 units 3 times a day. The patient was out of Tresiba and tried contr olling his blood sugar just with Humalog without success. He also felt generally weak and nauseous. He denies any vomiting, fever, chills, chest pain or focal deficit. In the emergency room, his initial vital signs showed temperature 97.9, respirations 22, pulse rate o f 128 with blood pressure 133/87 with O2 saturation 98% on room air. His lab work was consistent wit h DKA. His beta hydroxybutyrate was 5.25 with bicarbonate of 13, creatinine 1.44, BUN of 16. He was started on IV fluids with insulin drip. PAST MEDICAL HISTORY: Diabetes mellitus type 1, diabetic neuropathy and bipolar disorder. PAST SURGICAL HISTORY: Surgery over the right humerus. ALLERGIES: Patient is allergic to SULFA and TRAZODONE. CURRENT HOME MEDICATIONS: As discussed above. SOCIAL HISTORY: Patient currently lives at home with brother. He is a former smoker. He denies cur rent use of alcohol, no drug use. FAMILY HISTORY: Negative for premature coronary artery disease or malignancy. REVIEW OF SYSTEMS: The following complete review of systems was negative, unless otherwise mentioned in the HPI or below: Constitutional: Weight loss or gain, ability to conduct usual activities. Skin: Rash, itching. Eyes: Double vision, pain. ENT/Mouth: Nose bleeding, neck stiffness, pain, tenderness. Cardiovascular: Palpitations, dyspnea on exertion, orthopnea. Respiratory: Shortness of breath, wheezing, cough, hemoptysis, fever or night sweats. Gastrointestinal: Poor appetite, abdominal pain, heartburn, nausea, vomiting, constipation, or diarr hea. Genitourinary: Urgency, frequency, dysuria, nocturia. Musculoskeletal: Pain, swelling. Neurologic/Psychiatric: Anxiety, depression. Allergy/Immunologic: Skin rash, bleeding tendency. PHYSICAL EXAMINATION: VITAL SIGNS: As discussed above. GENERAL: A 23-year-old male, thin built, in no apparent distress. Feels generally weak. Nausea imp roved. HEENT: Head is atraumatic, normocephalic. Sclerae are anicteric. Dry mucous membrane, no oral lesi on. NECK: Supple, no JVD, no carotid bruit. LUNGS: Clear to auscultation bilaterally, no wheezing, rales or rhonchi. HEART: S1, S2 present. Regular rate and rhythm. No rubs or gallops appreciated. ABDOMEN: Soft, nontender, bowel sounds present. EXTREMITIES: No edema or calf tenderness. NEUROLOGIC: Grossly nonfocal, moves all four extremities. PSYCHIATRY: Alert, awake, oriented x3. SKIN: Warm and dry. LYMPH NODES: No palpable lymph nodes in the neck. PERIPHERAL VASCULAR: Radial pulses palpable bilaterally. MUSCULOSKELETAL: No joint swelling or tenderness. LABORATORY DATA: As discussed above. Phosphorus 1.0, magnesium 1.6, lactic acid 2.8, sodium 128 wit h potassium 3.4. PH on VBG 7.34, hemoglobin 16.6. IMAGING DATA: CT angiogram of the chest by my review done earlier this month was negative for acute findings. EKG by my review showed sinus tachycardia without significant ST-T wave changes. IMPRESSION: 1. Diabetic ketoacidosis secondary to medication noncompliance. 2. Dehydration with acute kidney injury. 3. Metabolic acidosis secondary to elevated ketones and lactate. 4. Hyponatremia secondary to hyperglycemia. 5. Hypophosphatemia, hypokalemia and hypomagnesemia. 6. Diabetic neuropathy. Plan of care was discussed with the patient in detail. He stated understanding. PLAN: The patient will be monitored in the Intermediate Care Unit. We will start him on insulin dri p. We will continue IV fluids per DKA protocol. We will recheck labs every 4 hours. We will also r echeck labs in a.m. We will replace electrolytes. The patient was extensively counseled to be compl iant with insulin. Plan of care was discussed with the patient in detail and he stated understanding.
[2018-08-31] MEDS: Insulin Glargine 15 UNITS in Pre-Filled Syringe 1 EACH SC SCH (20:44)
[2018-08-31] MEDS ORDERED: Famotidine 20 MG TAB PO SCH (21:00)
[2018-09-01 04:08] LABS: Anion Gap 8 mmol/L (10-20); BUN (Urea Nitrogen) 10 mg/dL (8.9-20.6); Calc. Creatinine Clearance 107 mL/min (70-130); Calcium 7.5 mg/dL (7.8-10.44); Carbon Dioxide 22 mmol/L (22-29); Chloride 107 mmol/L (98-107); Estimated GFR-MDRD Greater than 90; Glucose 214 mg/dL (70-105); Magnesium 1.5 mg/dL (1.6-2.6); Phosphorus 1.8 mg/dL (2.3-4.7); Potassium 3.6 mmol/L (3.5-5.1); Sodium 133 mmol/L (136-145)
[2018-09-01 07:18] VITALS: BP 117/73; TEMP 98
[2018-09-01] MEDS: Insulin Glargine 15 UNITS in Pre-Filled Syringe 1 EACH SC SCH (08:56)
[2018-09-01] MEDS: K-Phos Neutral 250 MG TAB PO SCH ×2 (08:57→12:18)
[2018-09-01] MEDS ORDERED: Enoxaparin Sodium 40 MG/0.4 ML SYRINGE SC SCH (09:00)
[2018-09-01] MEDS: Insulin Regular 300 UNITS/3 ML VIAL SC PRN ×2 (09:04→12:19)
[2018-09-01] MEDS: Potassium Chloride 40 MEQ in Sodium Chloride 0.45% 1,000 ML IV SCH (11:29)
[2018-09-01] MEDS ORDERED: Insulin Glargine 10 UNITS in Pre-Filled Syringe SC SCH (12:15)
--- NOTE | 2018-09-01 12:17 | PDOC.PN ---
- Subjective Encounter Start Date: 09/01/18 Encounter Start Time: 12:14 Mr. tello was seen today in follow-up of DKA. He is feeling much better, and would like to go home. - Objective Resuscitation Status: Resuscitation Status FULL:Full Resuscitation MAR Reviewed: Yes Vital Signs & Weight: Vital Signs (12 hours) Temp Pulse Resp BP Pulse Ox 09/01/18 08:00 100 09/01/18 07:00 98.0 F 86 16 117/73 100 09/01/18 03:25 97.9 F 95 16 105/65 95 09/01/18 01:20 97.8 F 107 H 18 102/71 98 Weight Weight 115 lb I&O: 08/31/18 09/01/18 09/02/18 06:59 06:59 06:59 Intake Total 840 Output Total 100 Balance 740 Result Diagrams: 08/31/18 09:14 09/01/18 03:27 Additional Labs: Accuchecks 09/01/18 09/01/18 08/31/18 11:24 04:08 19:27 POC Glucose 307 H 224 H 280 H 08/31/18 08/31/18 08/31/18 16:23 13:05 12:22 POC Glucose 256 H 98 89 Phys Exam - Physical Examination HEENT: PERRLA Respiratory: no wheezing, no rales, no rhonchi, clear to auscultation bilateral Cardiovascular: RRR, no significant murmur, no rub Gastrointestinal: soft, non-tender, no distention, positive bowel sounds Musculoskeletal: no edema Dx/Plan (1) DKA (diabetic ketoacidoses) Code(s): E13.10 - OTH DIABETES MELLITUS WITH KETOACIDOSIS WITHOUT COMA Status : Acute Qualifiers: Comment: Improving, continue DKA treatment per protocol - Plan * DKA type 1- resolved * DM- uncontrolled- will give an additional Dose of Lantus 10 units now, and then he is stable for discharge. He states he can get his insulin at discharge.
--- NOTE | 2018-09-01 19:29 | DIS ---
PRIMARY CARE PHYSICIAN: Dariusz Mooney M.D. DISCHARGE DIAGNOSES: Includes: 1. Diabetic ketoacidosis, type 1. 2. Diabetes mellitus type 1, uncontrolled. 3. Bipolar disorder. 4. Diabetic neuropathy. DISCHARGE MEDICATIONS: Include Tresiba 30 units subcu twice a day, NovoLog 15 units 3 times a day wi th meals. CODE STATUS: FULL CODE. ALLERGIES: SULFAMETHOXAZOLE, TRAZODONE, and TRIMETHOPRIM. HOSPITAL COURSE: Mr. Roldan is a pleasant 23-year-old gentleman who has a history of type 1 diabe shayna mellitus. He has had numerous admissions to our facility for DKA and in fact, he was just discha rged a few days ago. He says that he went out of town to [place] and forgot his insulin, and as a res ult, he began to feel sick and presented to the emergency room in diabetic ketoacidosis. He was carie bernard with IV insulin and the DKA protocol as well as IV fluids. He improved actually dramatically nadeem cortez, was able to be started back on his regular insulin and subsequently being discharged home. Radha white says he is able to afford his insulin. He has Medicaid and plans to leave and go to the pharmacy [facility] [place] to obtain his insulin and he has been instructed to follow up [facility].
--- NOTE | 2018-09-02 07:35 | EKG ---
Test Reason : STAT Blood Pressure : / mmHG Vent. Rate : 111 BPM Atrial Rate : 111 BPM P-R Int : 092 ms QRS Dur : 082 ms QT Int : 330 ms P-R-T Axes : 018 054 079 degrees QTc Int : 448 ms Sinus tachycardia with short VA Nonspecific T wave abnormality Abnormal ECG When compared with ECG of 17-AUG-2018 19:54, (Unconfirmed) No significant change was found Confirmed by BHANU BUENROSTRO ([id number]) on 09/02/2018 7:35:09 AM Referred By: TYRONE Confirmed By:BHANU BUENROSTRO
--- NOTE | 2018-09-02 08:26 | EKG ---
Test Reason : Blood Pressure : / mmHG Vent. Rate : 123 BPM Atrial Rate : 246 BPM P-R Int : 000 ms QRS Dur : 072 ms QT Int : 304 ms P-R-T Axes : 076 029 090 degrees QTc Int : 435 ms Sinus tachycardia. Nonspecific T wave abnormality Abnormal ECG Confirmed by BHANU BUENROSTRO ([id number]) on 09/02/2018 8:26:01 AM Referred By: Confirmed By:BHANU BUENROSTRO
== END 2018-09-01 15:50 | disposition home or self-care (01) | DRG 639 ==
LOC: ERS 09:02 → IMCU/EMU 10:13 → T4-A 15:23
PROVIDERS: ADMIT Internal Medicine; ATTEND Internal Medicine
DX: E10.10 Type 1 diabetes mellitus with ketoacidosis without coma (principal); Z79.4 Long term (current) use of insulin; E10.40 Type 1 diabetes mellitus with diabetic neuropathy, unspecified; E86.0 Dehydration; Z91.14 Patient's other noncompliance with medication regimen; F31.9 Bipolar disorder, unspecified
CPT/HCPCS: 36415; 36416; 80048; 80053; 82010; 82330; 82803; 83605; 83735; 83930; 84100; 85025; 93005; 93010; 94760; 96361; 96365; J1815; J2270; J2405; J3480; J7050; Q0162

== ENCOUNTER 2018-09-08 17:03 | Inpatient (IN) | payer OTHER ==
[2018-09-08] MEDS ORDERED: Insulin Regular 300 UNITS/3 ML VIAL ONE (17:16)
[2018-09-08 17:18] LABS: Actual Bicarbonate (HCO3a) 1.3 mEq/L (22-28); Analyzer IN Cardio ER; Calcium, Ionized 1.41 mmol/L (1.12-1.30); Carboxyhemoglobin (COHb) 0.5 gm% (0.0-3.0); O2 Tension (PaO2) 164.3 mmHg (80.0-100.0); Potassium - ABG Lab 5.43 mmol/L (3.70-5.30)
[2018-09-08 17:19] LABS: CO2 Tension 11.5 mmHg (35.0-45.0); pH, Arterial 6.69 (7.35-7.45)
[2018-09-08 17:20] LABS: ALV-art Gradient -28.945 (0-20); Base Excess (BEa) -35.1 mEq/L (-2.0 to +3.0); Puncture Site LRA
[2018-09-08] MEDS ORDERED: Sodium Bicarb 50 MEQ/50 ML Abboject 8.4% SYRINGE ONE ×2 (17:35→18:58)
[2018-09-08 17:36] LABS: Bilirubin Negative (Negative); Blood, Urine Large (Negative); Clarity CLOUDY (Clear); Glucose, Urine (Dipstick) >=1000 mg/dL (Negative); Leukocyte Negative (Negative); Nitrite Negative (Negative); Protein, Urine (Dipstick) 30 mg/dL (Neg-Trace); Specific Gravity, Urine 1.022 (1.002-1.036); Urobilinogen 0.2 mg/dL (0.2-1.0)
[2018-09-08 17:39] LABS: Bacteria/HPF None Seen HPF (None Seen); Hyaline Casts/LPF 7-10 HYALINE CAST LPF (0-3 Hyaline); Pathc Cast-AUWi Flag 1.45 (0-2.49); RBC/HPF 0-3 HPF (0-3); Squamous Epithelial 0-3 HPF (0-3); WBC/HPF 0-3 HPF (0-3)
--- NOTE | 2018-09-08 17:42 | RAD ---
CHEST ONE VIEW: 09/08/18 HISTORY: Altered mental status. COMPARISON: 05/25/18. FINDINGS: The cardiac silhouette is magnified by projection. Pulmonary vasculature is unremarkable. Mediastinum is midline. No lobar consolidation or evidence of pneumothorax. medical physics professor leads overlie the ch est. IMPRESSION: No active cardiopulmonary abnormalities are demonstrated. POS: [facility]
[2018-09-08 17:48] LABS: Amphetamine Not Detected (NotDetected); Barbiturates Screen Not Detected (NotDetected); Benzodiazepine Screen Not Detected (NotDetected); Cocaine Metabolite Screen Not Detected (NotDetected); Medtox Control Line Valid? VALID (VALID); Medtox Reader # READER 4; Methadone Not Detected (NotDetected); Methamphetamine Detected (NotDetected); Opiate Screen Not Detected (NotDetected); Oxycodone Screen Not Detected (NotDetected); Phencyclidine (PCP) Not Detected (NotDetected); THC/Cannabinoid Screen Not Detected (NotDetected); Tricyclic Screen Not Detected (NotDetected)
[2018-09-08 17:55] LABS: #Basophils 0.1 thou/uL (0.0-0.2); #Eosinphils 0.1 thou/uL (0.0-0.7); #Lymphocytes 5.1 thou/uL (1.20-3.40); #Monocytes 0.2 thou/uL (0.11-0.59); #Neutrophils 11.4 thou/uL (1.40-6.50); %Basophils 0.8 % (0.0-1.0); %Eosinophils 0.7 % (0.0-10.0); %Lymphocytes 30.2 % (21.0-51.0); %Monocytes 1.2 % (0.0-10.0); %Neutrophils 67.1 % (42.0-75.0); Hemoglobin 14.7 g/dL (14.0-18.0); Mean Corpuscular HGB CONC 33.1 g/dL (32.0-36.0); Mean Corpuscular Hemoglobin 33.8 pg (27.0-31.0); Mean Platelet Volume 6.8 fL (7.4-10.4); Platelet Count 582 thou/uL (130-400); RBC Distribution Width 12.9 % (11.5-14.5); Red Blood Cell (RBC) Count 4.34 mill/uL (4.70-6.10)
[2018-09-08 18:16] LABS: ALT (SGPT) 20 U/L (8-55); AST (SGOT) 19 U/L (5-34); Albumin 3.6 g/dL (3.5-5.0); Alkaline Phosphatase 119 U/L (40-150); BUN (Urea Nitrogen) 25 mg/dL (8.9-20.6); Bilirubin, Total Less than 0.2 mg/dL (0.2-1.2); Calc. Creatinine Clearance 0 mL/min (70-130); Calcium 8.6 mg/dL (7.8-10.44); Chloride 101 mmol/L (98-107); Estimated GFR-MDRD 52; Magnesium 2.8 mg/dL (1.6-2.6); Potassium 4.8 mmol/L (3.5-5.1); Protein, Total 6.6 g/dL (6.0-8.3); Sodium 137 mmol/L (136-145)
--- NOTE | 2018-09-08 18:18 | CT ---
CT HEAD NONCONTRAST: 09/08/18 HISTORY: Altered mental status. FINDINGS: There is no evidence of acute intracranial hemorrhage or infarct. Ventricles appear normal in size, s hape and position. There is no mass effect or shift of midline structures. The visualized paranasal s inuses remain well aerated. IMPRESSION: No acute intracranial abnormalities are demonstrated. POS: [facility]
[2018-09-08 18:19] LABS: Acetaminophen Less than 6.0 mcg/mL (10.0-30.0); Alcohol Less than 10 mg/dL (Less than 10); Phosphorus 8.3 mg/dL (2.3-4.7); Salicylate Less than 8.0 mg/dL (15.0-30.0)
[2018-09-08 18:24] LABS: CKMB 2.8 ng/mL (0-6.6); Troponin I Less than 0.010 ng/mL (< 0.028)
[2018-09-08 18:27] LABS: Carbon Dioxide Less than 8 mmol/L (22-29)
[2018-09-08 18:28] LABS: Glucose 815 mg/dL (70-105)
[2018-09-08 18:51] LABS: Actual Bicarbonate (HCO3a) 1.8 mEq/L (22-28); Analyzer IN Cardio ER; Calcium, Ionized 1.23 mmol/L (1.12-1.30); Potassium - ABG Lab 4.49 mmol/L (3.70-5.30)
[2018-09-08 18:57] LABS: pH, Arterial 6.88 (7.35-7.45)
[2018-09-08 18:58] LABS: CO2 Tension 9.8 mmHg (35.0-45.0); Puncture Site LRA
[2018-09-08] MEDS ORDERED: Insulin Regular 100 units/100 ml in NS IVPB SCH (19:15)
[2018-09-08] MEDS ORDERED: Bisacodyl 5 MG TAB PO PRN (19:51)
[2018-09-08] MEDS ORDERED: Senokot S 8.6-50 MG TAB PO PRN (19:51)
[2018-09-08] MEDS ORDERED: Sodium Chloride 0.9% 1,000 ML IV PRN ×4 (19:51)
[2018-09-08] MEDS ORDERED: Ondansetron PF 4 MG/2 ML Vial IVP PRN (19:51)
[2018-09-08] MEDS ORDERED: CCU Electrolyte Replacement 1 EACH IVPB ONE (19:51)
[2018-09-08] MEDS ORDERED: Dextrose 5 %-0.45 % NaCl 1,000 ML IV PRN (19:51)
[2018-09-08] MEDS ORDERED: NS 0.9% w/ 20 MEQ KCL 1,000 ML IV PRN ×2 (19:51)
[2018-09-08] MEDS ORDERED: Magnesium Oxide 400 MG TAB PO PRN ×2 (20:00)
[2018-09-08] MEDS ORDERED: Potassium Chloride 40 MEQ in Sodium Chloride 0.9% 250 ML 250 ML IVPB PRN (20:00)
[2018-09-08] MEDS ORDERED: Potassium Chloride 40 MEQ in Premix Bag 1 BAG IVPB PRN (20:00)
[2018-09-08] MEDS ORDERED: Potassium Phosphate 9 MMOL in Sodium Chloride 0.9% 100 ML IVPB PRN (20:00)
[2018-09-08] MEDS ORDERED: Potassium Phosphate 15 MMOL in Sodium Chloride 0.9% 250 ML 250 ML IV PRN (20:00)
[2018-09-08] MEDS ORDERED: Potassium Phosphate 12 MMOL in Sodium Chloride 0.9% 250 ML 250 ML IV PRN (20:00)
[2018-09-08] MEDS ORDERED: CCU ELECTROLYTE REPLACEMENT PROTOCOL FS PRN (20:00)
[2018-09-08] MEDS ORDERED: Magnesium 2 GM/NS 0.9% 100 ML 2 GM in Premix Bag 1 BAG IVPB PRN (20:00)
[2018-09-08] MEDS ORDERED: Potassium Chloride 20 MEQ TAB PO PRN (20:00)
[2018-09-08] MEDS: NS 0.9% w/ 20 MEQ KCL 1,000 ML IV SCH ×2 (20:16→21:03)
[2018-09-08 20:19] VITALS: BMI 16.1
[2018-09-08 20:43] LABS: BUN (Urea Nitrogen) 21 mg/dL (8.9-20.6); Calc. Creatinine Clearance 62 mL/min (70-130); Calcium 7.6 mg/dL (7.8-10.44); Chloride 112 mmol/L (98-107); Estimated GFR-MDRD 64; Potassium 5.1 mmol/L (3.5-5.1); Sodium 139 mmol/L (136-145)
[2018-09-08 20:46] LABS: Carbon Dioxide Less than 8 mmol/L (22-29); Glucose 571 mg/dL (70-105)
[2018-09-08] MEDS: Famotidine/PF 20 mg/2ml Vial SLOW IVP SCH (21:12)
[2018-09-08 21:59] LABS: Bilirubin Negative (Negative); Blood, Urine Small (Negative); Clarity CLEAR (Clear); Glucose, Urine (Dipstick) >=1000 mg/dL (Negative); Leukocyte Negative (Negative); Nitrite Negative (Negative); Protein, Urine (Dipstick) Trace mg/dL (Neg-Trace); Specific Gravity, Urine 1.014 (1.002-1.036); Urobilinogen 0.2 mg/dL (0.2-1.0)
[2018-09-08 22:00] LABS: Bacteria/HPF None Seen HPF (None Seen); Hyaline Casts/LPF 7-10 HYALINE CAST LPF (0-3 Hyaline); Pathc Cast-AUWi Flag 1.45 (0-2.49); RBC/HPF 0-3 HPF (0-3); Squamous Epithelial 0-3 HPF (0-3); WBC/HPF 0-3 HPF (0-3)
[2018-09-08] MEDS ORDERED: Sodium Bicarb 50 MEQ/50 ML Abboject 8.4% SYRINGE IVP SCH (22:15)
[2018-09-08 22:24] LABS: Lactic Acid 2.4 mmol/L (0.5-2.2)
[2018-09-08] MEDS: Heparin 5,000 UNITS/ML VIAL SC SCH (22:41)
[2018-09-09] MEDS: Heparin 5,000 UNITS/ML VIAL SC SCH ×4 (00:15→20:32)
[2018-09-09] MEDS ORDERED: Morphine 2 MG/ML SYRINGE SLOW IVP SCH (00:15)
[2018-09-09 00:48] LABS: BUN (Urea Nitrogen) 17 mg/dL (8.9-20.6); Calc. Creatinine Clearance 88 mL/min (70-130); Calcium 7.7 mg/dL (7.8-10.44); Chloride 119 mmol/L (98-107); Estimated GFR-MDRD Greater than 90; Glucose 184 mg/dL (70-105); Potassium 3.8 mmol/L (3.5-5.1); Sodium 147 mmol/L (136-145)
[2018-09-09 00:55] LABS: Carbon Dioxide Less than 8 mmol/L (22-29)
[2018-09-09] MEDS: D5 1/2 NS w/20 mEq KCL 1,000 ML IV PRN ×4 (01:24→14:09)
[2018-09-09] MEDS ORDERED: Sodium Bicarb 50 MEQ/50 ML Abboject 8.4% SYRINGE IVP SCH (01:45)
[2018-09-09 03:49] LABS: #Eosinphils 0.1 thou/uL (0.0-0.7); #Lymphocytes 2.5 thou/uL (1.20-3.40); #Monocytes 1.6 thou/uL (0.11-0.59); #Neutrophils 8.8 thou/uL (1.40-6.50); %Basophils 0.3 % (0.0-1.0); %Eosinophils 0.9 % (0.0-10.0); %Lymphocytes 19.1 % (21.0-51.0); %Monocytes 12.3 % (0.0-10.0); %Neutrophils 67.4 % (42.0-75.0); Hemoglobin 12.7 g/dL (14.0-18.0); Mean Corpuscular HGB CONC 35.2 g/dL (32.0-36.0); Mean Corpuscular Hemoglobin 33.4 pg (27.0-31.0); Mean Platelet Volume 6.1 fL (7.4-10.4); Platelet Count 452 thou/uL (130-400); RBC Distribution Width 12.7 % (11.5-14.5)
[2018-09-09 04:08] LABS: Anion Gap 24 mmol/L (10-20); BUN (Urea Nitrogen) 13 mg/dL (8.9-20.6); Calc. Creatinine Clearance 81 mL/min (70-130); Calcium 7.6 mg/dL (7.8-10.44); Chloride 117 mmol/L (98-107); Estimated GFR-MDRD 87; Glucose 183 mg/dL (70-105); Potassium 3.6 mmol/L (3.5-5.1); Sodium 146 mmol/L (136-145)
[2018-09-09 04:14] LABS: Carbon Dioxide 9 mmol/L (22-29)
[2018-09-09 05:13] LABS: Medtox Reader # READER 4
[2018-09-09 05:14] LABS: Amphetamine Not Detected (NotDetected); Barbiturates Screen Not Detected (NotDetected); Benzodiazepine Screen Not Detected (NotDetected); Cocaine Metabolite Screen Not Detected (NotDetected); Medtox Control Line Valid? VALID (VALID); Methadone Not Detected (NotDetected); Methamphetamine Detected (NotDetected); Opiate Screen Detected (NotDetected); Oxycodone Screen Not Detected (NotDetected); Phencyclidine (PCP) Not Detected (NotDetected); THC/Cannabinoid Screen Not Detected (NotDetected); Tricyclic Screen Not Detected (NotDetected)
--- NOTE | 2018-09-09 08:23 | CON ---
DATE OF CONSULTATION: 09/09/2018 This encompassed 70 minutes time, of that time, greater than 50% was spent with the patient and/or on the patient's unit in the hospital. HISTORY OF PRESENT ILLNESS: The patient is a 23-year-old male, who presented to the ER last night an d diabetic ketoacidosis. He was initially comatose, but has improved with hydration. The history and physical has not been dictated, so I am relying on all the records that are in the art. This patient has apparently been in the hospital several times with DKA. I am not sure what th e issue is in terms of noncompliance. PAST MEDICAL HISTORY: 1. Type 1 diabetes mellitus at age 9. 2. Diabetic neuropathy. 3. Bipolar disorder. PAST SURGICAL HISTORY: Right humeral surgery. ALLERGIES: SULFA and TRAZODONE. SOCIAL HISTORY: Former smoker. Denies any drug use, although urine drug screen was positive for met h and opiates. FAMILY MEDICAL HISTORY: Unremarkable. REVIEW OF SYSTEMS: Remarkable for arm pain, otherwise negative. MEDICATIONS: Prior to admission, Tresiba 30 units subcu b.i.d. and Humalog 15 units subcu t.i.d. PHYSICAL EXAMINATION: VITAL SIGNS: Temperature 97.7, pulse 112, blood pressure 133/85. He is currently on an insulin drip at 3 units per hour. Intake for 24 hours at least 3500 has been given in the ICU. He had probably 5-6 liters in the ER prior to coming up here. Urine output has been 3225. HEENT EXAM: Pupils react. Sclerae anicteric. Oropharynx clear. NECK: Without adenopathy or JVD. CHEST: Clear without wheezing or rhonchi. CARDIAC: S1 and S2, regular, without murmur. ABDOMEN: Soft, nontender, nondistended. EXTREMITIES: No clubbing, cyanosis, or edema. NEUROLOGICAL: He is alert and oriented, follows commands appropriately. IMAGING: Brain CT showed no abnormalities. Chest x-ray demonstrated no infiltrates. CURRENT LABORATORY DATA: Sodium 146, potassium 3.6, chloride 117, CO2 of 9, BUN 13, creatinine 1.1, glucose 183. White blood cell count 13, hematocrit 36.1, platelet count 452. Tox screen positive fo r methamphetamine and opiate - opiate is probably something that was given while in the hospital. ASSESSMENT: Diabetic ketoacidosis with continued anion gap elevation. PLAN: 1. Continue insulin drip and hydration. 2. Can liberalize the use of water and discontinue his [place]. 3. Hopefully, he will be off the DKA protocol later this afternoon and can be transferred to the [facility] or.
[2018-09-09] MEDS: Famotidine/PF 20 mg/2ml Vial SLOW IVP SCH ×2 (08:58→20:33)
[2018-09-09] MEDS: Acetaminophen 325 MG TAB PO PRN ×2 (08:59→22:39)
--- NOTE | 2018-09-09 09:28 | PDOC.PN ---
- Subjective Encounter Start Date: 09/09/18 Encounter Start Time: 09:25 Subjective: nsg notes rev, omer ovn, pt is sleeping, easily arousable, declines to have -: much of a conversation but is able to answer short questions - Objective Resuscitation Status: Resuscitation Status FULL:Full Resuscitation Vital Signs & Weight: Vital Signs (12 hours) Temp Pulse Ox 09/09/18 07:43 98 09/09/18 07:00 97.7 F 09/09/18 04:00 99.3 F 09/09/18 00:00 99.4 F Weight Weight 115 lb 11.883 oz Most Recent Monitor Data Heart Rate from ECG 99 NIBP 144/109 NIBP BP-Mean 120 Respiration from ECG 12 SpO2 100 I&O: 09/08/18 09/09/18 09/10/18 06:59 06:59 06:59 Intake Total 3555.75 450 Output Total 3225 440 Balance 330.75 10 Result Diagrams: 09/09/18 03:23 09/09/18 03:23 Additional Labs: Accuchecks 09/09/18 09/09/18 09/09/18 09:00 08:24 07:12 POC Glucose 154 H 143 H 158 H 09/09/18 09/09/18 09/09/18 06:18 05:34 04:17 POC Glucose 181 H 201 H 205 H 09/09/18 09/09/18 09/09/18 03:23 02:23 01:23 POC Glucose 179 H 139 H 130 H 09/09/18 09/08/18 09/08/18 00:25 23:23 22:10 POC Glucose 142 H 256 H 313 H 09/08/18 09/08/18 09/08/18 21:21 20:02 19:19 POC Glucose 487 H 502 H 518 H Phys Exam - Physical Examination Constitutional: NAD lying in hospital bed HEENT: PERRLA, moist MMs Respiratory: no wheezing, no rales, no rhonchi, clear to auscultation bilateral not actively participating in physical examination Cardiovascular: RRR, no significant murmur, no rub Gastrointestinal: no distention, positive bowel sounds Musculoskeletal: pulses present Dx/Plan - Plan * DKA in a type 1 diabetic with acidosis on admission * unfortunately a recurrent hx of DKA and medication non compliance which gives a poor prognosis * serial glucose checks * continue with insulin gtt, IVF with KCl, serial BMP as per DKA protocol - will continue to monitor, hopefully will resolve rapidly * DKA with severe metabolic acidosis and metabolic encephalopathy is improving * * diet: current NPO * activity: as jaime, may need to encourage * dvt ppx
[2018-09-09 11:19] LABS: Anion Gap 16 mmol/L (10-20); BUN (Urea Nitrogen) 9 mg/dL (8.9-20.6); Calc. Creatinine Clearance 90 mL/min (70-130); Calcium 7.7 mg/dL (7.8-10.44); Carbon Dioxide 14 mmol/L (22-29); Chloride 113 mmol/L (98-107); Estimated GFR-MDRD Greater than 90; Glucose 176 mg/dL (70-105); Potassium 3.3 mmol/L (3.5-5.1); Sodium 140 mmol/L (136-145)
[2018-09-09] MEDS: Insulin Glargine 30 UNITS in Pre-Filled Syringe 1 EACH SC SCH (14:49)
[2018-09-09] MEDS ORDERED: Dextrose 5% in Water 1,000 ML IV PRN (15:30)
[2018-09-09] MEDS ORDERED: Dextrose 50% Abboject 50 ML SYRINGE IVP PRN (15:30)
[2018-09-09] MEDS ORDERED: Sodium Chloride 0.9% 1,000 ML IV SCH (15:30)
[2018-09-10 05:26] LABS: #Eosinphils 0.1 thou/uL (0.0-0.7); #Lymphocytes 2.8 thou/uL (1.20-3.40); %Basophils 0.2 % (0.0-1.0); %Monocytes 12.7 % (0.0-10.0); %Neutrophils 51.1 % (42.0-75.0); Hemoglobin 11.8 g/dL (14.0-18.0); Mean Corpuscular HGB CONC 34.9 g/dL (32.0-36.0); Mean Corpuscular Hemoglobin 33.4 pg (27.0-31.0); Mean Corpuscular Volume 95.7 fL (78.0-98.0); Mean Platelet Volume 6.1 fL (7.4-10.4); Platelet Count 377 thou/uL (130-400); RBC Distribution Width 13.4 % (11.5-14.5); Red Blood Cell (RBC) Count 3.53 mill/uL (4.70-6.10); White Blood Cell (WBC) Count 7.9 thou/uL (4.8-10.8)
[2018-09-10] MEDS: Insulin Regular 300 UNITS/3 ML VIAL SC PRN ×2 (05:45→12:03)
[2018-09-10 05:48] LABS: Anion Gap 13 mmol/L (10-20); BUN (Urea Nitrogen) 4 mg/dL (8.9-20.6); Calc. Creatinine Clearance 106 mL/min (70-130); Calcium 7.8 mg/dL (7.8-10.44); Carbon Dioxide 18 mmol/L (22-29); Chloride 111 mmol/L (98-107); Estimated GFR-MDRD Greater than 90; Glucose 282 mg/dL (70-105); Sodium 139 mmol/L (136-145)
[2018-09-10 05:52] LABS: Potassium 2.7 mmol/L (3.5-5.1)
[2018-09-10] MEDS: Potassium Chloride 20 MEQ TAB PO SCH ×2 (06:16→12:00)
[2018-09-10] MEDS: Heparin 5,000 UNITS/ML VIAL SC SCH ×2 (08:02→15:33)
[2018-09-10] MEDS: Acetaminophen 325 MG TAB PO PRN (08:02)
[2018-09-10] MEDS ORDERED: Famotidine 20 MG TAB PO SCH (09:00)
[2018-09-10] MEDS: Insulin Glargine 30 UNITS in Pre-Filled Syringe 1 EACH SC SCH (10:07)
[2018-09-10 15:47] VITALS: BP 131/85; TEMP 98.1
== END 2018-09-10 16:43 | disposition home or self-care (01) | DRG 637 ==
LOC: ERS 17:03 → CCU 18:50 → T4-B 09-09 18:30
PROVIDERS: ADMIT Internal Medicine; ATTEND Internal Medicine
DX: E10.10 Type 1 diabetes mellitus with ketoacidosis without coma (principal); G93.41 Metabolic encephalopathy; E10.40 Type 1 diabetes mellitus with diabetic neuropathy, unspecified; F31.9 Bipolar disorder, unspecified; Z88.2 Allergy status to sulfonamides; Z88.8 Allergy status to other drugs, medicaments and biological substances; Z91.14 Patient's other noncompliance with medication regimen
CPT/HCPCS: 36415; 36416; 51702; 70450; 71045; 80048; 80053; 80306; 80307; 81003; 81015; 82010; 82553; 82805; 83605; 83735; 84100; 84484; 85025; 87086; 93005; 96361; 96374; 96375; J1644; J1815; J2270; J7050; S0028

== ENCOUNTER 2018-10-08 14:02 | Observation (INO) | payer OTHER ==
[2018-10-08] MEDS ORDERED: Ondansetron PF 4 MG/2 ML Vial ONE (14:25)
[2018-10-08] MEDS ORDERED: Pantoprazole 40 MG VIAL ONE (14:25)
--- NOTE | 2018-10-08 15:17 | RAD ---
RADIOGRAPH CHEST 1 VIEW: HISTORY: A 23-year-old male with nausea and vomiting. FINDINGS: There are no air space densities, pulmonary edema, pneumothorax, or cardiomegaly. The lateral costop hrenic angles are sharp. IMPRESSION: No acute cardiopulmonary findings. jn [] POS: [facility]
[2018-10-08 15:33] LABS: #Eosinphils 0.1 thou/uL (0.0-0.7); #Monocytes 0.9 thou/uL (0.11-0.59); #Neutrophils 6.5 thou/uL (1.40-6.50); %Basophils 0.4 % (0.0-1.0); %Eosinophils 0.8 % (0.0-10.0); %Monocytes 8.1 % (0.0-10.0); %Neutrophils 61.7 % (42.0-75.0); Hemoglobin 17.7 g/dL (14.0-18.0); Mean Corpuscular HGB CONC 35.2 g/dL (32.0-36.0); Mean Corpuscular Hemoglobin 32.8 pg (27.0-31.0); Mean Corpuscular Volume 93.1 fL (78.0-98.0); Mean Platelet Volume 7.4 fL (7.4-10.4); Platelet Count 327 thou/uL (130-400); RBC Distribution Width 13.4 % (11.5-14.5); Red Blood Cell (RBC) Count 5.41 mill/uL (4.70-6.10); White Blood Cell (WBC) Count 10.5 thou/uL (4.8-10.8)
[2018-10-08 16:00] LABS: Troponin I Less than 0.010 ng/mL (< 0.028)
[2018-10-08 16:39] LABS: ALT (SGPT) 20 U/L (8-55); AST (SGOT) 16 U/L (5-34); Albumin 3.8 g/dL (3.5-5.0); Alkaline Phosphatase 101 U/L (40-150); Anion Gap 20 mmol/L (10-20); BUN (Urea Nitrogen) 12 mg/dL (8.9-20.6); Bilirubin, Total 0.4 mg/dL (0.2-1.2); Calc. Creatinine Clearance 0 mL/min (70-130); Calcium 8.5 mg/dL (7.8-10.44); Carbon Dioxide 13 mmol/L (22-29); Chloride 109 mmol/L (98-107); Estimated GFR-MDRD 71; Globulin 3.3 g/dL (2.4-3.5); Glucose 104 mg/dL (70-105); Lipase 121 U/L (8-78); Potassium 3.5 mmol/L (3.5-5.1); Protein, Total 7.1 g/dL (6.0-8.3); Sodium 138 mmol/L (136-145)
--- NOTE | 2018-10-08 17:58 | ULT ---
RIGHT UPPER QUADRANT ULTRASOUND: 10/08/18 COMPARISON: None. HISTORY: Right upper quadrant pain. TECHNIQUE: Multiplanar rizzo scale sonographic imaging of the right upper quadrant provided. FINDINGS: The legal assistant reports a negative Owens's sign. No focal liver lesion or intrahepatic biliary dilat ation. Imaged pancreas appears grossly unremarkable. No gallbladder wall thickening or pericholecystic fluid. No gallstones are noted. The common bile evon t measures 3 mm, within normal limits. The right kidney measures 10.3 cm craniocaudal dimension and demonstrates no evidence for stone, hydr onephrosis, or mass lesion. IMPRESSION: No acute findings. POS: [facility]
[2018-10-08 18:56] LABS: Actual Bicarbonate (HCO3a) 15.2 mEq/L (22-28); Analyzer IN Cardio ER; CO2 Tension 29.1 mmHg (35.0-45.0); Calcium, Ionized 1.24 mmol/L (1.12-1.30); Carboxyhemoglobin (COHb) 0.7 gm% (0.0-3.0); Hemoglobin (Hb) 16.6 g/dL (14.0-18.0); O2 Tension (PaO2) 107.1 mmHg (80.0-100.0); Potassium - ABG Lab 3.57 mmol/L (3.70-5.30); pH, Arterial 7.34 (7.35-7.45)
[2018-10-08 18:57] LABS: ALV-art Gradient 6.255 (0-20); Puncture Site RRA
--- NOTE | 2018-10-08 19:23 | HP ---
DATE OF ADMISSION: 10/08/2018 PRIMARY CARE PHYSICIAN: Shirley. TIME OF SERVICE: 18:00. CHIEF COMPLAINT: Intractable nausea and vomiting. HISTORY OF PRESENT ILLNESS: Mr. Roldan is a 23-year-old gentleman with history of diabetes mellit us type 1 on Tresiba and Humalog, who presents to the emergency department for nausea and vomiting. The patient started having nausea last evening and vomiting and unable to keep anything down, so he c alled EMS. On EMS arrival, his blood sugar was 136, was given 200 mL of fluid, 8 mg of Zofran and tr ansferred to the Emergency Department. Workup in the ER revealed hydroxybutyrate of just over 5, blo od sugar in the low 100s and bicarbonate of 13 with a normal anion gap. We were subsequently called for admission. VBG or ABG had not been done yet and is currently pending. The patient is currently feeling better a fter fluids. Denies any nausea. No diarrhea, constipation or GI bleeding. Does have some lower abd ominal pain, but no upper abdominal pain. No history of gastritis or GI irritation. Patient denies any fevers or chills. No sick contacts at home. PAST MEDICAL HISTORY: 1. Diabetes mellitus type 1. 2. Diabetic neuropathy. PAST SURGICAL HISTORY: Include right humerus repair with plate, screws and billie. HOME MEDICATIONS: 1. Tresiba 30 units subcu b.i.d. 2. NovoLog 15 units subcutaneous a.c. ALLERGIES: BACTRIM and TRAZODONE. FAMILY HISTORY: Negative for clotting or bleeding disorder, no immune dysfunction. SOCIAL HISTORY: Negative for habits x3. No recent travel. No imported foods. REVIEW OF SYSTEMS: All systems reviewed and negative except as per HPI. PHYSICAL EXAMINATION: VITAL SIGNS: Temperature 97.5, pulse 92, blood pressure 140/91, respiratory rate 18, satting 100% on room air. GENERAL: He is awake, alert, oriented x3. He is acutely ill appearing. Well-developed, well-nouris hed, white male who was in no distress. HEENT: Normocephalic, atraumatic. Pupils equal, round, react to light bilaterally. Mucous membrane moist. No visible lesions. No thrush. NECK: Supple. He has no lymphadenopathy, JVD, or thyromegaly. He has normal carotid upstroke. The re are no bruits. LUNGS: Clear. No wheezes, no rales, no rhonchi. CARDIOVASCULAR: Normal S1, S2. No S3, S4. Slightly tachycardic. No audible murmurs. ABDOMEN: Soft. It is tender only in the lower anterior abdominal musculature. He has no rebound, r igidity or guarding. Good bowel sounds in all 4 quadrants. EXTREMITIES: Showed no cyanosis, no clubbing, no edema. SKIN: Warm, moist and well perfused. EXTREMITIES: No cyanosis, clubbing, no edema. LABORATORY DATA: CMP showed a sodium 138, potassium 3.5, chloride 109, bicarb 13, BUN 12, creatinine 1.27, glucose of 104, and calcium 8.5. Liver function within normal limits. Lipase slightly elevat ed at 121. CK-MB normal 2.0, troponin I less than 0.010. Beta hydroxybutyrate is 5.37. CBC showed white count of 10.5, hemoglobin 17.7, hematocrit of 50.3, and platelet count is 327 with a normal differential. ASSESSMENT AND PLAN: 1. Acute gastroenteritis. 2. Dehydration, mild. 3. Intractable nausea and vomiting. 4. Metabolic acidosis secondary to vomiting. At this point, we will place the patient in [facility]. We will give him IV fluids, D5 normal saline with 20 of KCl. Recheck labs in the morning . We will give him a diet and continue regular insulin. We will have insulin sliding scale as neede d and Zofran for nausea control. We will reevaluate his labs in the morning.
[2018-10-08] MEDS ORDERED: Ondansetron PF 4 MG/2 ML Vial IVP PRN (20:00)
[2018-10-08] MEDS ORDERED: Enoxaparin Sodium 40 MG/0.4 ML SYRINGE SC SCH (20:00)
[2018-10-08] MEDS ORDERED: Ondansetron ODT 4 MG TAB PO PRN (20:00)
[2018-10-08] MEDS ORDERED: Dextrose 50% Abboject 50 ML SYRINGE SLOW IVP PRN (20:00)
[2018-10-08] MEDS ORDERED: Dextrose 5% in Water 1,000 ML IV PRN (20:00)
[2018-10-08] MEDS ORDERED: Acetaminophen 650 MG Suppository PR PRN (20:00)
[2018-10-08] MEDS ORDERED: HumaLOG 300 UNITS/3 ML VIAL SC PRN (20:00)
[2018-10-08] MEDS ORDERED: Acetaminophen 325 MG TAB PO PRN (20:00)
[2018-10-08 20:03] VITALS: BMI 15.7
[2018-10-08] MEDS: D5 0.9% NS w/ 20 mEq KCl 1,000 ML IV SCH (20:24)
[2018-10-08] MEDS: Famotidine/PF 20 mg/2ml Vial SLOW IVP SCH (20:26)
[2018-10-08] MEDS ORDERED: Insulin Glargine 30 UNITS in Pre-Filled Syringe SC SCH (21:00)
[2018-10-08] MEDS ORDERED: Non-Formulary Item 1 EACH (Insulin Degludec [Tresiba Flextouch U-100] 30 UNIT) SQ SCH (21:00)
[2018-10-09] MEDS: D5 0.9% NS w/ 20 mEq KCl 1,000 ML IV SCH ×2 (04:06→12:00)
[2018-10-09 05:21] LABS: #Basophils 0.1 thou/uL (0.0-0.2); #Eosinphils 0.1 thou/uL (0.0-0.7); #Lymphocytes 4.1 thou/uL (1.20-3.40); #Monocytes 1.1 thou/uL (0.11-0.59); #Neutrophils 5.5 thou/uL (1.40-6.50); %Basophils 0.8 % (0.0-1.0); %Eosinophils 1.3 % (0.0-10.0); %Lymphocytes 37.5 % (21.0-51.0); %Monocytes 9.7 % (0.0-10.0); %Neutrophils 50.7 % (42.0-75.0); Hemoglobin 12.7 g/dL (14.0-18.0); Mean Corpuscular HGB CONC 35.4 g/dL (32.0-36.0); Mean Corpuscular Hemoglobin 33.3 pg (27.0-31.0); Mean Corpuscular Volume 94.1 fL (78.0-98.0); Mean Platelet Volume 6.6 fL (7.4-10.4); Platelet Count 292 thou/uL (130-400); Red Blood Cell (RBC) Count 3.82 mill/uL (4.70-6.10); White Blood Cell (WBC) Count 10.9 thou/uL (4.8-10.8)
[2018-10-09 05:23] LABS: Anion Gap 10 mmol/L (10-20); BUN (Urea Nitrogen) 6 mg/dL (8.9-20.6); Calc. Creatinine Clearance 89 mL/min (70-130); Carbon Dioxide 19 mmol/L (22-29); Chloride 113 mmol/L (98-107); Estimated GFR-MDRD Greater than 90; Glucose 170 mg/dL (70-105); Magnesium 1.2 mg/dL (1.6-2.6); Sodium 139 mmol/L (136-145)
[2018-10-09 05:24] LABS: Potassium 2.7 mmol/L (3.5-5.1)
[2018-10-09] MEDS: Potassium Chloride 20 MEQ TAB PO SCH ×5 (05:57→13:24)
[2018-10-09] MEDS ORDERED: Magnesium 2 GM/NS 0.9% 100 ML 4 GM in Premix Bag 1 BAG IVPB SCH (08:15)
[2018-10-09] MEDS: HumaLOG 300 UNITS/3 ML VIAL SC SCH ×2 (08:57→12:00)
[2018-10-09] MEDS: Famotidine/PF 20 mg/2ml Vial SLOW IVP SCH (08:58)
[2018-10-09] MEDS ORDERED: Enoxaparin Sodium 40 MG/0.4 ML SYRINGE SC SCH (09:00)
[2018-10-09] MEDS ORDERED: Magnesium Sulfate 4 GM in Sodium Chloride 0.9% 250 ML 250 ML IVPB SCH (09:30)
[2018-10-09 11:23] VITALS: BP 136/92; TEMP 98
[2018-10-09 15:41] LABS: Anion Gap 11 mmol/L (10-20); BUN (Urea Nitrogen) 5 mg/dL (8.9-20.6); Calc. Creatinine Clearance 109 mL/min (70-130); Calcium 8.3 mg/dL (7.8-10.44); Carbon Dioxide 23 mmol/L (22-29); Chloride 108 mmol/L (98-107); Estimated GFR-MDRD Greater than 90; Glucose 122 mg/dL (70-105); Magnesium 2.3 mg/dL (1.6-2.6); Potassium 3.6 mmol/L (3.5-5.1); Sodium 138 mmol/L (136-145)
--- NOTE | 2018-10-10 06:45 | DIS ---
PRIMARY CARE PHYSICIAN: ____ DATE OF ADMISSION: 10/08/2018 DATE OF DISCHARGE: 10/09/2018 DISCHARGE DIAGNOSES: 1. Acute gastroenteritis. 2. Diabetes mellitus type 1. 3. Metabolic acidosis. 4. Dehydration. CONSULTATIONS: None. PROCEDURES: None. HISTORY AND PHYSICAL: Mr. Roldan is a 23-year-old gentleman with known diabetes who has been unab le to take p.o. due to nausea and vomiting for the last 24-48 hours. He came to the emergency depart ment dehydrated and hemoconcentrated. Sugars were normal. Beta hydroxybutyrate was elevated, but hi s pH was normal. We were called for admission for possible DKA. HOSPITAL COURSE: The patient was seen and examined by me in the emergency department. The patient w as felt to not be in DKA, but to be ketotic due to decreased intake. He was placed on IV fluids over night with q.i.d. a.c. and at bedtime Accu-Cheks and regular insulin. The patient did well overnight and this morning his sugars were normal. He was hypokalemic this morning and hypomagnesemic and zhanna t was replaced and back in normal limits this afternoon. He was stable for discharge with outpatient followup. PHYSICAL EXAMINATION: The patient was seen and examined on the day of discharge. Discharge plan and disposition discussed were discussed face to face with the patient at bedside. DISCHARGE MEDICATIONS: 1. Tarceva 30 units subcu b.i.d. 2. Humalog 15 units subcu t.i.d. a.c. 3. Humalog sliding scale. DISCHARGE CONDITION: Stable. DISPOSITION: The patient is discharged home via private vehicle. FOLLOWUP APPOINTMENTS: Primary care physician in 1 week. DISCHARGE ACTIVITY: As tolerated. DISCHARGE DIET: Diabetic diet recommended.
--- NOTE | 2018-10-13 17:36 | EKG ---
Test Reason : TACHYCARDIA Blood Pressure : / mmHG Vent. Rate : 102 BPM Atrial Rate : 102 BPM P-R Int : 112 ms QRS Dur : 088 ms QT Int : 350 ms P-R-T Axes : 065 025 098 degrees QTc Int : 456 ms Sinus tachycardia Right atrial enlargement Nonspecific T wave abnormality Abnormal ECG Confirmed by ELISHA ADAMS ([id number]), proposal editor ANUSHA LÓPEZ ([id number] on 10/13/2018 5:35:53 PM Referred By: ANGIE Confirmed By:ELISHA ADAMS
== END 2018-10-09 17:31 | disposition home or self-care (01) ==
LOC: ERS 14:02 → T4-A 18:00
PROVIDERS: ADMIT Internal Medicine Infectious Disease; ATTEND Internal Medicine Infectious Disease
DX: K52.9 Noninfective gastroenteritis and colitis, unspecified (principal); E10.40 Type 1 diabetes mellitus with diabetic neuropathy, unspecified
CPT/HCPCS: 36415; 36416; 71045; 76705; 80048; 80053; 82010; 82553; 82805; 83690; 83735; 84484; 85025; 93005; 96361; 96365; 96366; 96372; 96374; 96375; 96376; C9113; G0378; J1650; J2405; J3475; J7050; S0028

== ENCOUNTER 2018-10-20 16:24 | Inpatient (IN) | payer OTHER, SELFPAY ==
[2018-10-20] MEDS ORDERED: Insulin Regular 300 UNITS/3 ML VIAL ONE (16:48)
[2018-10-20] MEDS ORDERED: Ondansetron PF 4 MG/2 ML Vial ONE (16:50)
--- NOTE | 2018-10-20 17:09 | RAD ---
PORTABLE AP CHEST X-RAY 10/20/18 HISTORY: Cough, DKA. COMPARISON: 10/08/18. FINDINGS: The cardiac silhouette and pulmonary vasculature are within normal limits. Lungs remain clear. There has been no interval change compared to the prior exam. IMPRESSION: No acute cardiopulmonary process. POS: [facility]
[2018-10-20 17:12] LABS: Bilirubin Negative (Negative); Blood, Urine Trace (Negative); Clarity CLEAR (Clear); Glucose, Urine (Dipstick) >=1000 mg/dL (Negative); Leukocyte Negative (Negative); Nitrite Negative (Negative); Protein, Urine (Dipstick) Trace mg/dL (Neg-Trace); Specific Gravity, Urine 1.029 (1.002-1.036); Urobilinogen 0.2 mg/dL (0.2-1.0)
[2018-10-20 17:14] LABS: Bacteria/HPF None Seen HPF (None Seen); Hyaline Casts/LPF 0-3 HYALINE CAST LPF (0-3 Hyaline); Pathc Cast-AUWi Flag 0.87 (0-2.49); RBC/HPF 0-3 HPF (0-3); Squamous Epithelial None Seen HPF (0-3); WBC/HPF None Seen HPF (0-3)
[2018-10-20 17:26] LABS: #Basophils 0.1 thou/uL (0.0-0.2); #Eosinphils 0.1 thou/uL (0.0-0.7); #Lymphocytes 2.4 thou/uL (1.20-3.40); #Monocytes 0.5 thou/uL (0.11-0.59); #Neutrophils 12.3 thou/uL (1.40-6.50); %Basophils 0.7 % (0.0-1.0); %Eosinophils 0.6 % (0.0-10.0); %Lymphocytes 15.8 % (21.0-51.0); %Monocytes 3.3 % (0.0-10.0); %Neutrophils 79.7 % (42.0-75.0); Hemoglobin 17.3 g/dL (14.0-18.0); Mean Corpuscular HGB CONC 31.7 g/dL (32.0-36.0); Mean Corpuscular Hemoglobin 31.6 pg (27.0-31.0); Mean Corpuscular Volume 99.5 fL (78.0-98.0); Mean Platelet Volume 7.1 fL (7.4-10.4); Platelet Count 509 thou/uL (130-400); RBC Distribution Width 13.2 % (11.5-14.5); Red Blood Cell (RBC) Count 5.49 mill/uL (4.70-6.10); White Blood Cell (WBC) Count 15.5 thou/uL (4.8-10.8)
[2018-10-20 17:34] LABS: ALT (SGPT) 32 U/L (8-55); AST (SGOT) 16 U/L (5-34); Albumin 4.6 g/dL (3.5-5.0); Alkaline Phosphatase 205 U/L (40-150); BUN (Urea Nitrogen) 18 mg/dL (8.9-20.6); Bilirubin, Total 0.2 mg/dL (0.2-1.2); Calc. Creatinine Clearance 0 mL/min (70-130); Calcium 9.5 mg/dL (7.8-10.44); Chloride 98 mmol/L (98-107); Estimated GFR-MDRD 49; Globulin 4.8 g/dL (2.4-3.5); Potassium 4.7 mmol/L (3.5-5.1); Protein, Total 9.4 g/dL (6.0-8.3); Sodium 133 mmol/L (136-145)
[2018-10-20 17:41] LABS: Carbon Dioxide Less than 8 mmol/L (22-29); Glucose 628 mg/dL (70-105)
[2018-10-20] MEDS ORDERED: Insulin Regular 100 units/100 ml in NS IVPB SCH (18:00)
[2018-10-20 18:55] LABS: Base Excess-Venous -22.9 mmol/L (0 (+/- 2.5)); Bicarbonate (HCO3v) 5.7 mmol/L (22.0-29.0); CO2 Tension (PvCO2) 20.6 mmHg (41.0-51.0); Calcium, Ionized 1.17 mmol/L (1.12-1.32); Hemoglobin - Calc 18.3 g/dL (12.0-18.0); O2 Tension (PvO2) 58.3 mmHg (35.0-45.0); Potassium 4.4 mmol/L (3.4-4.7); T. Carbon Dioxide 6.4 mmol/L (1.0-85.0); pH (Venous) 7.053 (7.35-7.45); vO2 Saturation-calc 77.6 % (94-98)
[2018-10-20 19:35] LABS: BUN (Urea Nitrogen) 15 mg/dL (8.9-20.6); Calc. Creatinine Clearance 0 mL/min (70-130); Calcium 8.6 mg/dL (7.8-10.44); Chloride 105 mmol/L (98-107); Estimated GFR-MDRD 63; Glucose 517 mg/dL (70-105); Magnesium 1.9 mg/dL (1.6-2.6); Potassium 4.4 mmol/L (3.5-5.1); Sodium 134 mmol/L (136-145)
[2018-10-20 19:41] LABS: Carbon Dioxide Less than 8 mmol/L (22-29)
[2018-10-20] MEDS ORDERED: Acetaminophen 325 MG TAB PO PRN (20:14)
[2018-10-20] MEDS ORDERED: Ondansetron ODT 4 MG TAB PO PRN (20:14)
[2018-10-20] MEDS ORDERED: Potassium Chloride 20 MEQ/100 ML PREMIX BAG ONE (20:14)
[2018-10-20] MEDS ORDERED: CCU Electrolyte Replacement 1 EACH IVPB ONE (20:17)
[2018-10-20] MEDS ORDERED: NS 0.9% w/ 20 MEQ KCL 1,000 ML IV PRN ×2 (20:17)
[2018-10-20] MEDS ORDERED: Dextrose 5 %-0.45 % NaCl 1,000 ML IV PRN (20:17)
[2018-10-20] MEDS ORDERED: Sodium Chloride 0.9% 1,000 ML IV PRN ×4 (20:17)
[2018-10-20 20:52] LABS: BUN (Urea Nitrogen) 14 mg/dL (8.9-20.6); Calc. Creatinine Clearance 0 mL/min (70-130); Calcium 8.9 mg/dL (7.8-10.44); Chloride 109 mmol/L (98-107); Estimated GFR-MDRD 66; Glucose 339 mg/dL (70-105); Sodium 135 mmol/L (136-145)
[2018-10-20] MEDS ORDERED: CCU ELECTROLYTE REPLACEMENT PROTOCOL FS PRN (20:55)
[2018-10-20] MEDS ORDERED: Potassium Chloride 20 MEQ TAB PO PRN (20:55)
[2018-10-20] MEDS ORDERED: Magnesium 2 GM/NS 0.9% 100 ML 2 GM in Premix Bag 1 BAG IVPB PRN (20:55)
[2018-10-20] MEDS ORDERED: Potassium Chloride 40 MEQ in Premix Bag 1 BAG IVPB PRN (20:55)
[2018-10-20] MEDS ORDERED: Potassium Chloride 40 MEQ in Sodium Chloride 0.9% 250 ML 250 ML IVPB PRN (20:55)
[2018-10-20] MEDS ORDERED: Potassium Phosphate 12 MMOL in Sodium Chloride 0.9% 250 ML 250 ML IV PRN (20:55)
[2018-10-20] MEDS ORDERED: Potassium Phosphate 15 MMOL in Sodium Chloride 0.9% 250 ML 250 ML IV PRN (20:55)
[2018-10-20] MEDS ORDERED: Potassium Phosphate 9 MMOL in Sodium Chloride 0.9% 100 ML IVPB PRN (20:55)
[2018-10-20] MEDS ORDERED: Magnesium Oxide 400 MG TAB PO PRN ×2 (20:55)
[2018-10-20 21:02] LABS: Carbon Dioxide Less than 8 mmol/L (22-29)
[2018-10-20 21:23] VITALS: BMI 16.2
[2018-10-20] MEDS: D5 1/2 NS w/20 mEq KCL 1,000 ML IV PRN (22:21)
[2018-10-21 01:05] LABS: Anion Gap 11 mmol/L (10-20); BUN (Urea Nitrogen) 11 mg/dL (8.9-20.6); Calc. Creatinine Clearance 73 mL/min (70-130); Calcium 8.8 mg/dL (7.8-10.44); Carbon Dioxide 15 mmol/L (22-29); Chloride 113 mmol/L (98-107); Estimated GFR-MDRD 76; Glucose 215 mg/dL (70-105); Potassium 4.1 mmol/L (3.5-5.1); Sodium 135 mmol/L (136-145)
[2018-10-21] MEDS: D5 1/2 NS w/20 mEq KCL 1,000 ML IV PRN ×2 (02:28→06:37)
[2018-10-21 05:32] LABS: Anion Gap 12 mmol/L (10-20); BUN (Urea Nitrogen) 10 mg/dL (8.9-20.6); Calc. Creatinine Clearance 83 mL/min (70-130); Calcium 8.7 mg/dL (7.8-10.44); Carbon Dioxide 15 mmol/L (22-29); Chloride 112 mmol/L (98-107); Estimated GFR-MDRD 89; Glucose 148 mg/dL (70-105); Potassium 3.8 mmol/L (3.5-5.1); Sodium 135 mmol/L (136-145)
[2018-10-21 06:14] LABS: #Basophils 0.1 thou/uL (0.0-0.2); #Eosinphils 0.1 thou/uL (0.0-0.7); #Lymphocytes 3.5 thou/uL (1.20-3.40); #Monocytes 1.2 thou/uL (0.11-0.59); #Neutrophils 7.2 thou/uL (1.40-6.50); %Eosinophils 0.5 % (0.0-10.0); %Lymphocytes 29.2 % (21.0-51.0); %Monocytes 9.7 % (0.0-10.0); %Neutrophils 59.7 % (42.0-75.0); Hemoglobin 14.8 g/dL (14.0-18.0); Mean Corpuscular Hemoglobin 33.4 pg (27.0-31.0); Mean Corpuscular Volume 95.4 fL (78.0-98.0); Mean Platelet Volume 6.6 fL (7.4-10.4); Platelet Count 438 thou/uL (130-400); RBC Distribution Width 13.2 % (11.5-14.5); Red Blood Cell (RBC) Count 4.42 mill/uL (4.70-6.10)
[2018-10-21] MEDS ORDERED: Enoxaparin Sodium 40 MG/0.4 ML SYRINGE SC SCH (09:00)
--- NOTE | 2018-10-21 09:25 | PDOC.PN ---
- Subjective Encounter Start Date: 10/21/18 Encounter Start Time: 09:24 Mr. Munoz was seen today in follow-up of DKA. He tells methis time he was taking his insulin everyday. He says he got sick with Flu-like symptoms about 4 days ago, and he believes this is the reason he got sick. He is asking for something to eat. He says he will leave AMA if he doesn't get something to eat. - Objective Resuscitation Status - Order Detail: 10/20/18 20:14 Resuscitation Status Routine Resuscitation Status: FULL: Full Resuscitation MAR Reviewed: Yes Vital Signs & Weight: Vital Signs (12 hours) Temp Pulse Resp BP Pulse Ox 10/21/18 08:00 98.0 F 98 16 142/90 H 100 10/21/18 03:43 98.6 F 93 14 133/78 98 10/20/18 23:43 99.2 F 101 H 12 129/71 96 Weight Weight 116 lb 12.8 oz I&O: 10/20/18 10/21/18 10/22/18 06:59 06:59 06:59 Intake Total 2569 Output Total 780 Balance 1789 Result Diagrams: 10/21/18 04:01 10/21/18 04:01 Additional Labs: Accuchecks 10/21/18 10/21/18 10/21/18 08:19 07:01 06:08 POC Glucose 155 H 170 H 140 H 10/21/18 10/21/18 10/21/18 05:05 04:09 03:03 POC Glucose 136 H 145 H 152 H 10/21/18 10/21/18 10/21/18 02:10 01:27 00:05 POC Glucose 191 H 189 H 190 H 10/20/18 10/20/18 10/20/18 23:02 22:05 21:00 POC Glucose 191 H 193 H 261 H 10/20/18 10/20/18 20:27 18:25 POC Glucose 294 H 483 H Phys Exam - Physical Examination HEENT: PERRLA Respiratory: no wheezing, no rales, no rhonchi, clear to auscultation bilateral Cardiovascular: RRR, no significant murmur, no rub Gastrointestinal: soft, non-tender, no distention, positive bowel sounds Musculoskeletal: no edema, pulses present Dx/Plan (1) DKA (diabetic ketoacidoses) Code(s): E13.10 - OTH DIABETES MELLITUS WITH KETOACIDOSIS WITHOUT COMA Status : Acute Qualifiers: Comment: Improving, continue DKA treatment per protocol (2) Diabetic neuropathy Code(s): E11.40 - TYPE 2 DIABETES MELLITUS WITH DIABETIC NEUROPATHY, UNSP Status: Acute - Plan * DKA- His blood glucose has improved- will advance his diet- and check his next BMP * Likely with stop the drip * Diabetic neuropathy- stable. * Once again discussed the dangers of poorly controlled diabetes with his uncle present. I also recommend that he get a referral from his Primary Care Provider to see an Executive Admin, who can help instruct him on how to adjust his insulin when he gets sick.
[2018-10-21 10:22] LABS: Anion Gap 13 mmol/L (10-20); BUN (Urea Nitrogen) 9 mg/dL (8.9-20.6); Calc. Creatinine Clearance 88 mL/min (70-130); Calcium 8.6 mg/dL (7.8-10.44); Carbon Dioxide 16 mmol/L (22-29); Chloride 109 mmol/L (98-107); Estimated GFR-MDRD Greater than 90; Glucose 188 mg/dL (70-105); Sodium 134 mmol/L (136-145)
[2018-10-21 12:25] VITALS: BP 134/85; TEMP 99.3
[2018-10-21 14:42] LABS: Anion Gap 9 mmol/L (10-20); BUN (Urea Nitrogen) 9 mg/dL (8.9-20.6); Calc. Creatinine Clearance 82 mL/min (70-130); Calcium 8.2 mg/dL (7.8-10.44); Carbon Dioxide 19 mmol/L (22-29); Chloride 106 mmol/L (98-107); Estimated GFR-MDRD 87; Glucose 369 mg/dL (70-105); Potassium 3.3 mmol/L (3.5-5.1); Sodium 131 mmol/L (136-145)
--- NOTE | 2018-10-21 22:26 | HP ---
PRIMARY CARE DOCTOR: Dr. Dariusz Mooney. CODE STATUS: Full code. TIME OF EVALUATION: 07:30 p.m. CHIEF COMPLAINT: Abdominal pain. HISTORY OF PRESENT ILLNESS: This is a 23-year-old male patient with past medical history of diabetes type 1, known to hospital due to frequent flares, came to the hospital after having severe abdominal pain. The patient reported also nausea and vomiting. No clear triggers. No alleviating factors. He reported that he had generalized weakness flu like symptoms. The pain was severe, associated with headache. Symptoms have been present for the past 24 hours. REVIEW OF SYSTEMS: CONSTITUTIONAL: No fever or chills. The patient reported generalized weakness. RESPIRATORY: No cough, sputum production, or shortness of breath. CARDIOVASCULAR: No chest pain or palpitation. GASTROINTESTINAL: The patient reported nausea and vomiting. No diarrhea. Reported abdominal pain. MANAGER SOCIAL RESPONSIBILITY: No dizziness, headache, or feeling lightheaded. GENITOURINARY: No burning on urination. EXTREMITIES: No leg swelling. All other systems were reviewed and were negative except for the findings as mentioned above. PAST MEDICAL HISTORY: The patient reported having diabetes type 1 and neuropathy. PAST SURGICAL HISTORY: Orthopedic surgery of right humerus. PSYCH HISTORY: Bipolar disorder, depression, anxiety. SOCIAL HISTORY: No alcohol. No drugs. No smoking history. KNOWN ALLERGIES: To Bactrim and trazodone. REPORTED MEDICATIONS: Humalog insulin 3 times a day sliding scale. PHYSICAL EXAMINATION: VITAL SIGNS: Blood pressure 153/103 with heart rate 112, respiratory rate was 22, temperature was 97.8, pain was 7/10, and oxygen saturation was 100% on room air. GENERAL APPEARANCE: The patient is alert, oriented, in mild distress due to symptoms. HEENT: Eye, normal conjunctivae. Dry oral mucosa. Anicteric. No JVD. RESPIRATORY: Bilateral air entry. No rales. No wheezing. Symmetric expansion. CARDIOVASCULAR: Normal rate, regular rhythm. No murmurs. No gallops. No edema. ABDOMEN: Soft. Normal bowel sounds. MUSCULOSKELETAL: Baseline range of motion and strength. No tenderness. SKIN: Warm and intact. No pallor. No rash. No redness. Peripheral pulses are present. Capillary refill seems to be intact. NEUROLOGIC: No evidence of any new focal weakness. Baseline speech. The patient has neuropathy. Cranial nerves seem to be intact. PSYCH: The patient is in good mood. No anxiety. Oriented, optimal judgment. DIAGNOSTIC STUDIES: Chest x-ray was reviewed. The patient has no acute cardiopulmonary process. LABORATORY DATA: The labs were reviewed. The patient has white count of 15.5, hemoglobin 17.3, MCV 99, and platelet count 509. ABG was done; pH was 7.05. Sodium was 134, potassium 4.4, chloride 105; carbon dioxide was less than 8, has been improving, the last one was 15; anion gap was 11, BUN 15; creatinine initial one was 1.4 and has been improving, the last one was 1.1; GFR 63, improved to 76; glucose 117, has come down, the last one was 152; magnesium 1.9. Alk phos 209 and albumin 4.6. Urine was done, was negative. Beta hydroxybutyrate was 11.1. ASSESSMENT AND PLAN: The patient was placed in the hospital with following medical problems: 1. Diabetic ketoacidosis. The patient has hyperglycemia the patient has been started on diabetic ketoacidosis protocol, placed in ICU. The patient has been improving. We will continue to monitor. 2. Severe dehydration due to diabetes mellitus, from hyperglycemia. The patient is receiving aggressive hydration, we will control diabetic ketoacidosis. 3. Acute kidney injury; this is resolving; this was secondary to dehydration from diabetic ketoacidosis, therefore is a prerenal kidney injury. 4. Hyponatremia on presentation, corrected, sodium is normal; this is due to hyperglycemia. 5. Severe metabolic acidosis due to diabetic ketoacidosis, treatment as above. 6. and elevated white count. This is likely secondary to hemoconcentration from dehydration. Treatment as mentioned above. 7. Deep vein thrombosis prophylaxis. Job ID: [id number]
--- NOTE | 2018-10-22 13:57 | DIS ---
DATE OF ADMISSION: 10/20/2018 DATE OF DISCHARGE: 10/21/2018 PRIMARY CARE PHYSICIAN: Dariusz Mooney MD DISCHARGE DISPOSITION: Left AMA. DISCHARGE DIAGNOSES: 1. Diabetic ketoacidosis, type 1. 2. Diabetic peripheral neuropathy. 3. History of medical noncompliance. DISCHARGE MEDICATIONS: The patient will continue his usual medications including Tresiba FlexTouch 30 units twice a day and Humalog sliding scale. CODE STATUS: Full code. ALLERGIES: TO SULFA, TRAZODONE, AND TRIMETHOPRIM. HOSPITAL COURSE: Mr. Roldan is a 23-year-old gentleman, who is well known to the hospitalist service due to multiple admissions from diabetic ketoacidosis. In the past, he has had difficulty with obtaining his insulin due to either not having a prescription or not following up with his physicians. On this occasion, he states that he did have this medication, but that he had a viral illness that started a few days prior to admission and despite taking his insulin, it got out of control. He was admitted for DKA and started on an insulin drip as well as IV fluids. His electrolytes were replaced and on the following day, he was feeling much better. His anion gap had closed and the plan was to transition him off the insulin drip and then to place him back on his scheduled long-acting insulin and sliding scale. However, the patient became inpatient and stated that he planned to leave AMA at the end of the day and did just that. Prior to him leaving, I was able to talk to him with his uncle present in the room. I explained to him that he needs to follow up with his primary care physician as well as consider referral to an maid cleaning cooking, so that the maid cleaning cooking can instruct him on what to do when he gets sick and how to adjust his insulin during illness. He voiced understanding and stated he has "heard all this before" and once again, as previously mentioned, he later left that afternoon against medical advice. Job ID: [id number]
== END 2018-10-21 15:56 | disposition left against medical advice (07) | DRG 638 ==
LOC: ERS 16:24 → IMCU/EMU 18:03
PROVIDERS: ADMIT Internal Medicine; ATTEND Internal Medicine
DX: E10.10 Type 1 diabetes mellitus with ketoacidosis without coma (principal); N17.9 Acute kidney failure, unspecified; E87.1 Hypo-osmolality and hyponatremia; F31.9 Bipolar disorder, unspecified; F41.9 Anxiety disorder, unspecified; E86.0 Dehydration; E10.42 Type 1 diabetes mellitus with diabetic polyneuropathy; Z79.4 Long term (current) use of insulin; Z88.2 Allergy status to sulfonamides; Z88.8 Allergy status to other drugs, medicaments and biological substances
CPT/HCPCS: 36415; 36416; 71045; 80048; 80053; 81003; 81015; 82010; 82330; 82803; 83735; 85025; 87804; 96361; 96365; 96366; 96375; 96376; J1815; J2405; J3480; J7050; Q0162

== ENCOUNTER 2018-11-01 19:19 | Inpatient (IN) | payer OTHER, SELFPAY ==
[2018-11-01 19:49] LABS: #Basophils 0.1 thou/uL (0.0-0.2); #Eosinphils 0.1 thou/uL (0.0-0.7); #Monocytes 0.3 thou/uL (0.11-0.59); #Neutrophils 8.2 thou/uL (1.40-6.50); %Basophils 0.8 % (0.0-1.0); %Eosinophils 1.2 % (0.0-10.0); %Lymphocytes 25.7 % (21.0-51.0); %Monocytes 2.6 % (0.0-10.0); %Neutrophils 69.7 % (42.0-75.0); Mean Corpuscular HGB CONC 33.3 g/dL (32.0-36.0); Mean Corpuscular Hemoglobin 32.9 pg (27.0-31.0); Mean Corpuscular Volume 98.9 fL (78.0-98.0); Mean Platelet Volume 6.4 fL (7.4-10.4); Platelet Count 666 thou/uL (130-400); RBC Distribution Width 13.4 % (11.5-14.5); Red Blood Cell (RBC) Count 5.15 mill/uL (4.70-6.10); White Blood Cell (WBC) Count 11.7 thou/uL (4.8-10.8)
[2018-11-01 20:06] LABS: ALT (SGPT) 30 U/L (8-55); AST (SGOT) 20 U/L (5-34); Albumin 4.2 g/dL (3.5-5.0); Alkaline Phosphatase 158 U/L (40-150); BUN (Urea Nitrogen) 19 mg/dL (8.9-20.6); Bilirubin, Total 0.2 mg/dL (0.2-1.2); CK (CPK) 35 U/L (30-200); Calc. Creatinine Clearance 0 mL/min (70-130); Calcium 9.5 mg/dL (7.8-10.44); Chloride 95 mmol/L (98-107); Estimated GFR-MDRD 44; Globulin 4.1 g/dL (2.4-3.5); Potassium 4.8 mmol/L (3.5-5.1); Protein, Total 8.3 g/dL (6.0-8.3); Sodium 132 mmol/L (136-145)
[2018-11-01 20:16] LABS: Carbon Dioxide Less than 8 mmol/L (22-29); Glucose 736 mg/dL (70-105)
--- NOTE | 2018-11-01 20:39 | RAD ---
PORTABLE CHEST 11/01/18 PROVIDED CLINICAL HISTORY: Dyspnea. FINDINGS: Comparison 10/20/18. The cardiac and mediastinal silhouette is within normal limits. Lungs appear clear. No pleural fluid or pneumothorax apparent. IMPRESSION: No evidence for an acute cardiopulmonary process. POS: [facility]
[2018-11-01 20:45] LABS: Bilirubin Negative (Negative); Blood, Urine Large (Negative); Clarity CLEAR (Clear); Glucose, Urine (Dipstick) >=1000 mg/dL (Negative); Leukocyte Negative (Negative); Nitrite Negative (Negative); Protein, Urine (Dipstick) 30 mg/dL (Neg-Trace); Specific Gravity, Urine 1.027 (1.002-1.036); Urobilinogen 0.2 mg/dL (0.2-1.0)
[2018-11-01 20:47] LABS: Bacteria/HPF None Seen HPF (None Seen); Hyaline Casts/LPF 4-6 HYALINE CAST LPF (0-3 Hyaline); Pathc Cast-AUWi Flag 0.72 (0-2.49); Squamous Epithelial 0-3 HPF (0-3); WBC/HPF None Seen HPF (0-3)
[2018-11-01] MEDS ORDERED: Insulin Regular 300 UNITS/3 ML VIAL ONE ×2 (21:12→21:14)
[2018-11-01] MEDS ORDERED: Insulin Regular 100 units/100 ml in NS IVPB SCH (21:15)
[2018-11-01] MEDS ORDERED: Ondansetron ODT 4 MG TAB SL PRN (22:50)
[2018-11-01] MEDS ORDERED: Ondansetron PF 4 MG/2 ML Vial IVP PRN (22:50)
[2018-11-01] MEDS ORDERED: Acetaminophen 325 MG TAB PO PRN (22:50)
[2018-11-01] MEDS ORDERED: Dextrose 5 %-0.45 % NaCl 1,000 ML IV PRN (22:51)
[2018-11-01] MEDS ORDERED: Dextrose 5% in Water 1,000 ML IV PRN (22:51)
[2018-11-01] MEDS ORDERED: Sodium Chloride 0.9% 1,000 ML IV PRN ×4 (22:51)
[2018-11-01] MEDS ORDERED: NS 0.9% w/ 20 MEQ KCL 1,000 ML/1,000 ML BAG IV PRN (22:51)
[2018-11-01] MEDS ORDERED: Dextrose 50% Abboject 50 ML SYRINGE SLOW IVP PRN (22:52)
[2018-11-01] MEDS ORDERED: Potassium Phosphate 12 MMOL in Sodium Chloride 0.9% 250 ML 250 ML IV PRN (22:53)
[2018-11-01] MEDS ORDERED: Potassium Phosphate 15 MMOL in Sodium Chloride 0.9% 250 ML 250 ML IV PRN (22:53)
[2018-11-01] MEDS ORDERED: Potassium Chloride 20 MEQ TAB PO PRN (22:53)
[2018-11-01] MEDS ORDERED: Potassium Chloride 40 MEQ in Premix Bag 1 BAG IVPB PRN (22:53)
[2018-11-01] MEDS ORDERED: Magnesium Oxide 400 MG TAB PO PRN ×2 (22:53)
[2018-11-01] MEDS ORDERED: Magnesium 2 GM/NS 0.9% 100 ML 2 GM in Premix Bag 1 BAG IVPB PRN (22:53)
[2018-11-01] MEDS ORDERED: Potassium Phosphate 9 MMOL in Sodium Chloride 0.9% 100 ML IVPB PRN (22:53)
[2018-11-01] MEDS ORDERED: Potassium Chloride 40 MEQ in Sodium Chloride 0.9% 250 ML 250 ML IVPB PRN (22:53)
[2018-11-01] MEDS ORDERED: CCU ELECTROLYTE REPLACEMENT PROTOCOL FS PRN (22:53)
[2018-11-01] MEDS ORDERED: ADD ELECTROLYTE REPLACEMENT SET TO PROFILE FS SCH (23:00)
[2018-11-01] MEDS: NS 0.9% w/ 20 MEQ KCL 1,000 ML/1,000 ML BAG IV PRN (23:23)
[2018-11-01 23:30] VITALS: BMI 15.7
[2018-11-01 23:51] LABS: Lactic Acid 2.2 mmol/L (0.5-2.2)
[2018-11-02] LABS: BUN (Urea Nitrogen) 18 mg/dL (8.9-20.6); Calc. Creatinine Clearance 53 mL/min (70-130); Calcium 8.5 mg/dL (7.8-10.44); Chloride 104 mmol/L (98-107); Estimated GFR-MDRD 55; Potassium 4.4 mmol/L (3.5-5.1); Sodium 135 mmol/L (136-145)
[2018-11-02 00:07] LABS: Carbon Dioxide Less than 8 mmol/L (22-29); Glucose 559 mg/dL (70-105)
[2018-11-02] MEDS: NS 0.9% w/ 20 MEQ KCL 1,000 ML/1,000 ML BAG IV PRN (01:27)
[2018-11-02] MEDS: D5 1/2 NS w/20 mEq KCL 1,000 ML IV PRN ×4 (03:15→19:56)
--- NOTE | 2018-11-02 04:21 | HP ---
CHIEF COMPLAINT: The patient presented for possible DKA. HISTORY OF PRESENT ILLNESS: The patient is a 23-year-old male who has been here previously 10 times in the past 13 months for diabetic ketoacidosis. The patient seems to have a difficult time keeping track of his insulin and using it as he should. The patient reported that he is in the process of moving to an apartment in [place] and somehow in the process has lost track of his insulin again. Last time, he took it was 2 o'clock in the morning. The patient denies any other evidence of specific illness or infection other than having possible infection on his right great toe around the ingrown toenail. He denies any abdominal pain, fevers, or chills. He denies any nausea, vomiting, diarrhea, or constipation. REVIEW OF SYSTEMS: The patient does report that he feels somewhat short of breath and feels very thirsty. Otherwise, all systems were reviewed and all pertinent positives and negatives noted in the history of present illness. PAST MEDICAL HISTORY: Diabetes mellitus type 1 and some diabetic neuropathy, repeated multiple episodes of DKA requiring hospitalization. PAST SURGICAL HISTORY: Orthopedic surgery to the right humerus. PSYCHIATRIC HISTORY: Bipolar, depression, and anxiety. SOCIAL HISTORY: The patient denies alcohol, drugs, or smoking. He is full code, did not name a surrogate decision maker at this time. MEDICATIONS: The patient takes Tresiba and 30 units of long-acting insulin b.i.d. ALLERGIES: 1. SULFAMETHOXAZOLE. 2. TRAZODONE. 3. TRIMETHOPRIM. PHYSICAL EXAMINATION: VITAL SIGNS: BP 140/100, pulse 112, respirations 24, temperature 98.2, O2 saturation 100% on room air. GENERAL APPEARANCE: Age-appropriate male. He is very thin. He is awake, alert, and conversant. He is tachypneic. He has obviously some parched lips. HEENT: PERRL. No OP lesions, extremely dry oral mucosa. NECK: Supple and symmetric without lymphadenopathy, JVD, or bruits. HEART: Tachycardic, but regular with no murmurs. LUNGS: Clear to auscultation bilaterally with good chest wall expansion and air exchange. ABDOMEN: Soft, nontender, and nondistended. Positive bowel sounds. No masses. No organomegaly. EXTREMITIES: Warm and dry with no cyanosis, clubbing, or edema. PSYCHIATRIC: The patient appears to be having normal affect and behavior. NEUROLOGIC: The patient moves all extremities spontaneously with no evidence of focal deficits. LABORATORY DATA: White count 11.7, hemoglobin 17.0, platelets 666. Sodium 132, potassium 4.8, chloride 95, CO2 is less than 8, BUN 19, creatinine 1.92, glucose 736, lactic acid 2.1, calcium 9.5. LFTs; AST is 20, ALT 30, alkaline phosphatase 158. Troponin less than 0.01. Albumin 4.2, globulin 4.1. Urinalysis; glucose, ketones, blood. Beta-hydroxybutyrate 12.88. Chest x-ray is clear. IMPRESSION AND PLAN: 1. Diabetic ketoacidosis. This patient is now being admitted for the 11th time in 13 months with diabetic ketoacidosis. The patient is not compliant with his treatment regimen and continues to return with similar story of losing his insulin or not keeping track of his insulin, etc. The patient will be admitted to the IMCU with aggressive hydration and insulin drip per the diabetic ketoacidosis protocol. He has no evidence of underlying infection by history or on exam to account for any decompensation. 2. Acute renal failure. The patient's creatinine is well above his normal baseline which is around 1. I suspect this is simply from dehydration injury and should improve with adequate fluids. Job ID: [id number]
[2018-11-02 05:55] LABS: Anion Gap 14 mmol/L (10-20); BUN (Urea Nitrogen) 10 mg/dL (8.9-20.6); Calc. Creatinine Clearance 91 mL/min (70-130); Calcium 7.6 mg/dL (7.8-10.44); Carbon Dioxide 12 mmol/L (22-29); Chloride 111 mmol/L (98-107); Estimated GFR-MDRD Greater than 90; Glucose 233 mg/dL (70-105); Potassium 3.9 mmol/L (3.5-5.1); Sodium 133 mmol/L (136-145)
[2018-11-02] MEDS ORDERED: Enoxaparin Sodium 40 MG/0.4 ML SYRINGE SC SCH (09:00)
[2018-11-02 11:56] LABS: Anion Gap 10 mmol/L (10-20); BUN (Urea Nitrogen) 6 mg/dL (8.9-20.6); Calc. Creatinine Clearance 96 mL/min (70-130); Carbon Dioxide 16 mmol/L (22-29); Chloride 106 mmol/L (98-107); Estimated GFR-MDRD Greater than 90; Glucose 214 mg/dL (70-105); Potassium 3.3 mmol/L (3.5-5.1); Sodium 129 mmol/L (136-145)
--- NOTE | 2018-11-02 15:39 | PDOC.PN ---
- Subjective Encounter Start Date: 11/02/18 Encounter Start Time: 15:38 Subjective: Feeling better, hungry - Objective Resuscitation Status - Order Detail: 11/01/18 23:12 Resuscitation Status Routine Resuscitation Status: FULL: Full Resuscitation Discussed with: patient DOMO Reviewed: Yes Vital Signs & Weight: Vital Signs (12 hours) Temp Pulse Resp BP Pulse Ox 11/02/18 15:00 98.7 F 100 16 117/75 99 11/02/18 12:00 98.4 F 98 16 128/78 99 11/02/18 08:00 98.1 F 101 H 18 122/68 100 Weight Admit Weight 112 lb 14.027 oz Weight 112 lb 14.027 oz I&O: 11/01/18 11/02/18 11/03/18 06:59 06:59 06:59 Intake Total 4080 3590 Output Total 2200 1750 Balance 1880 1840 Result Diagrams: 11/01/18 19:37 11/02/18 11:24 Additional Labs: Accuchecks 11/02/18 11/02/18 11/02/18 13:22 11:04 09:56 POC Glucose 196 H 214 H 245 H 11/02/18 11/02/18 11/02/18 08:19 07:16 06:23 POC Glucose 163 H 203 H 218 H 11/02/18 11/02/18 11/02/18 04:12 03:07 02:07 POC Glucose 154 H 161 H 182 H 11/02/18 01:15 POC Glucose 278 H Phys Exam - Physical Examination HEENT: PERRLA, moist MMs, sclera anicteric, TM's clear, oral pharynx no lesions , 2+ tonsils Neck: no nodes, no JVD, supple, full ROM Respiratory: no wheezing, no rales Cardiovascular: RRR, no significant murmur, no rub Gastrointestinal: soft, non-tender, no distention Musculoskeletal: no edema, pulses present Neurological: non-focal, normal sensation, moves all 4 limbs Skin: no rash, normal turgor, cap refill <2 seconds Dx/Plan (1) DKA (diabetic ketoacidoses) Code(s): E13.10 - OTH DIABETES MELLITUS WITH KETOACIDOSIS WITHOUT COMA Status : Acute Qualifiers: Comment: Improving, continue DKA treatment per protocol (2) Hypokalemia Code(s): E87.6 - HYPOKALEMIA Status: Acute Comment: supplements (3) Diabetes mellitus type 1 Status: Chronic Qualifiers: Diabetes mellitus complication status: with ketoacidosis Diabetes mellitus complication detail: without coma Qualified Code(s): E10.10 - Type 1 diabetes mellitus with ketoacidosis without coma (4) BROOKE (acute kidney injury) Code(s): N17.9 - ACUTE KIDNEY FAILURE, UNSPECIFIED Status: Resolved Comment : continue aggressive hydration - Plan cont current plan of care, DVT proph w/lovenox, DVT proph w/SCDs * .
[2018-11-03] MEDS ORDERED: Insulin Glargine 15 UNITS in Pre-Filled Syringe 1 EACH SC SCH (00:15)
[2018-11-03 00:16] VITALS: BP 114/73; TEMP 98.6
== END 2018-11-03 00:36 | disposition left against medical advice (07) | DRG 638 ==
LOC: ERS 19:19 → IMCU/EMU 21:07
PROVIDERS: ADMIT Internal Medicine; ATTEND Internal Medicine
DX: E10.10 Type 1 diabetes mellitus with ketoacidosis without coma (principal); N17.9 Acute kidney failure, unspecified; F31.9 Bipolar disorder, unspecified; E87.6 Hypokalemia; E10.42 Type 1 diabetes mellitus with diabetic polyneuropathy; Z98.890 Other specified postprocedural states; Z91.14 Patient's other noncompliance with medication regimen; Z88.1 Allergy status to other antibiotic agents; Z88.8 Allergy status to other drugs, medicaments and biological substances
CPT/HCPCS: 36415; 36416; 71045; 80048; 80053; 81003; 81015; 82010; 82550; 83605; 84484; 85025; 87086; 93005; 96361; 96365; 96376; J1650; J1815; J2405; J7050

== ENCOUNTER 2018-11-15 16:26 | Inpatient (IN) | payer OTHER, SELFPAY ==
[2018-11-15 17:23] LABS: Mean Corpuscular Hemoglobin 33.2 pg (27.0-31.0); Mean Platelet Volume 6.6 fL (7.4-10.4); Platelet Count 509 thou/uL (130-400); RBC Distribution Width 14.7 % (11.5-14.5); Red Blood Cell (RBC) Count 5.13 mill/uL (4.70-6.10); White Blood Cell (WBC) Count 20.3 thou/uL (4.8-10.8)
[2018-11-15 17:25] LABS: Base Excess-Venous -22.3 mmol/L (0 (+/- 2.5)); Bicarbonate (HCO3v) 5.6 mmol/L (22.0-29.0); CO2 Tension (PvCO2) 18.9 mmHg (41.0-51.0); Calcium, Ionized 1.14 mmol/L (1.12-1.32); Hemoglobin - Calc 20.5 g/dL (12.0-18.0); O2 Tension (PvO2) 64.9 mmHg (35.0-45.0); Potassium 4.8 mmol/L (3.4-4.7); T. Carbon Dioxide 6.1 mmol/L (1.0-85.0); pH (Venous) 7.077 (7.35-7.45); vO2 Saturation-calc 83.5 % (94-98)
[2018-11-15] MEDS ORDERED: Ondansetron PF 4 MG/2 ML Vial ONE (17:39)
[2018-11-15 17:42] LABS: Anisocytosis SLIGHT = 6-15 cells (100X) (0-5/hpf); Band 4 % (5-11); Lymphocytes 19 % (21-51); MDiff Complete? YES; Monocytes 8 % (0-10); Neutrophil 68 % (42-75); PLT Morphology Comment Appears Increased; Reactive Lymphocytes 1 % (0-10)
[2018-11-15] MEDS ORDERED: Insulin Regular 100 units/100 ml in NS IVPB SCH (17:45)
[2018-11-15 17:53] LABS: ALT (SGPT) 35 U/L (8-55); AST (SGOT) 15 U/L (5-34); Acetaminophen Less than 6.0 mcg/mL (10.0-30.0); Alcohol Less than 10 mg/dL (Less than 10); Alkaline Phosphatase 116 U/L (40-150); BUN (Urea Nitrogen) 18 mg/dL (8.9-20.6); Bilirubin, Total 0.4 mg/dL (0.2-1.2); CK (CPK) 42 U/L (30-200); Calc. Creatinine Clearance 0 mL/min (70-130); Calcium 9.3 mg/dL (7.8-10.44); Chloride 95 mmol/L (98-107); Estimated GFR-MDRD 51; Globulin 3.6 g/dL (2.4-3.5); Lipase 18 U/L (8-78); Potassium 4.9 mmol/L (3.5-5.1); Protein, Total 7.6 g/dL (6.0-8.3); Salicylate Less than 8.0 mg/dL (15.0-30.0); Sodium 131 mmol/L (136-145)
[2018-11-15 18:10] LABS: Carbon Dioxide Less than 8 mmol/L (22-29); Glucose 684 mg/dL (70-105)
[2018-11-15 18:21] LABS: Bilirubin Negative (Negative); Blood, Urine Large (Negative); Clarity CLEAR (Clear); Glucose, Urine (Dipstick) >=1000 mg/dL (Negative); Leukocyte Negative (Negative); Nitrite Negative (Negative); Protein, Urine (Dipstick) Negative (Neg-Trace); Specific Gravity, Urine 1.025 (1.002-1.036); Urobilinogen 0.2 mg/dL (0.2-1.0)
[2018-11-15 18:25] LABS: Bacteria/HPF None Seen HPF (None Seen); Hyaline Casts/LPF 0-3 HYALINE CAST LPF (0-3 Hyaline); Pathc Cast-AUWi Flag 0.58 (0-2.49); Squamous Epithelial None Seen HPF (0-3); WBC/HPF None Seen HPF (0-3)
[2018-11-15 18:37] LABS: Amphetamine Not Detected (NotDetected); Barbiturates Screen Not Detected (NotDetected); Benzodiazepine Screen Not Detected (NotDetected); Cocaine Metabolite Screen Not Detected (NotDetected); Medtox Control Line Valid? VALID (VALID); Medtox Reader # READER 1; Methadone Not Detected (NotDetected); Methamphetamine Not Detected (NotDetected); Opiate Screen Not Detected (NotDetected); Oxycodone Screen Not Detected (NotDetected); Phencyclidine (PCP) Not Detected (NotDetected); THC/Cannabinoid Screen Not Detected (NotDetected); Tricyclic Screen Not Detected (NotDetected)
[2018-11-15] MEDS ORDERED: NS 0.9% w/ 20 MEQ KCL 1,000 ML/1,000 ML BAG IV PRN (20:10)
[2018-11-15] MEDS ORDERED: Acetaminophen 650 MG Suppository PR PRN (20:35)
[2018-11-15] MEDS ORDERED: Ondansetron PF 4 MG/2 ML Vial IVP PRN (20:35)
[2018-11-15] MEDS ORDERED: NS 0.9% w/ 20 MEQ KCL 1,000 ML IV PRN ×2 (20:35)
[2018-11-15] MEDS ORDERED: CCU Electrolyte Replacement 1 EACH IVPB ONE (20:35)
[2018-11-15] MEDS ORDERED: Dextrose 5 %-0.45 % NaCl 1,000 ML IV PRN (20:35)
[2018-11-15] MEDS ORDERED: Acetaminophen 325 MG TAB PO PRN (20:35)
[2018-11-15] MEDS ORDERED: Senokot S 8.6-50 MG TAB PO PRN (20:35)
[2018-11-15] MEDS ORDERED: HYDROcodone/Acetaminophen 5/325 mg Tablet PO PRN (20:35)
[2018-11-15] MEDS ORDERED: Sodium Chloride 0.9% 1,000 ML IV PRN ×4 (20:35)
[2018-11-15] MEDS ORDERED: Ondansetron ODT 4 MG TAB PO PRN (20:35)
[2018-11-15] MEDS ORDERED: HUMULIN R 100 UNITS in Sodium Chloride 0.9% 100 ML IVPB SCH (20:35)
[2018-11-15] MEDS ORDERED: Magnesium 2 GM/NS 0.9% 100 ML 2 GM in Premix Bag 1 BAG IVPB PRN (21:30)
[2018-11-15] MEDS ORDERED: Potassium Chloride 20 MEQ TAB PO PRN (21:30)
[2018-11-15] MEDS ORDERED: D5 1/2 NS w/20 mEq KCL 1,000 ML ONE (21:30)
[2018-11-15] MEDS ORDERED: Magnesium Oxide 400 MG TAB PO PRN ×2 (21:30)
[2018-11-15] MEDS ORDERED: Potassium Phosphate 12 MMOL in Sodium Chloride 0.9% 250 ML 250 ML IV PRN (21:30)
[2018-11-15] MEDS ORDERED: Potassium Phosphate 9 MMOL in Sodium Chloride 0.9% 100 ML IVPB PRN (21:30)
[2018-11-15] MEDS ORDERED: Potassium Phosphate 15 MMOL in Sodium Chloride 0.9% 250 ML 250 ML IV PRN (21:30)
[2018-11-15] MEDS ORDERED: Potassium Chloride 40 MEQ in Sodium Chloride 0.9% 250 ML 250 ML IVPB PRN (21:30)
[2018-11-15] MEDS ORDERED: Potassium Chloride 40 MEQ in Premix Bag 1 BAG IVPB PRN (21:30)
[2018-11-15] MEDS ORDERED: CCU ELECTROLYTE REPLACEMENT PROTOCOL FS PRN (21:30)
[2018-11-15 21:49] LABS: Calcium 8.6 mg/dL (7.8-10.44); Chloride 111 mmol/L (98-107); Glucose 250 mg/dL (70-105); Potassium 4.3 mmol/L (3.5-5.1); Sodium 140 mmol/L (136-145)
[2018-11-15 21:52] LABS: Carbon Dioxide Less than 8 mmol/L (22-29)
[2018-11-15 21:53] LABS: Calc. Creatinine Clearance 0 mL/min (70-130); Estimated GFR-MDRD 69
[2018-11-15 21:54] LABS: BUN (Urea Nitrogen) 16 mg/dL (8.9-20.6)
[2018-11-15] MEDS: Famotidine 20 MG TAB PO SCH (22:51)
[2018-11-15] MEDS: D5 1/2 NS w/20 mEq KCL 1,000 ML IV PRN (22:52)
[2018-11-15 22:56] VITALS: BMI 15.7
[2018-11-16 01:02] LABS: Anion Gap 14 mmol/L (10-20); BUN (Urea Nitrogen) 13 mg/dL (8.9-20.6); Calc. Creatinine Clearance 77 mL/min (70-130); Calcium 8.2 mg/dL (7.8-10.44); Carbon Dioxide 15 mmol/L (22-29); Chloride 112 mmol/L (98-107); Estimated GFR-MDRD 85; Glucose 140 mg/dL (70-105); Potassium 4.4 mmol/L (3.5-5.1); Sodium 137 mmol/L (136-145)
--- NOTE | 2018-11-16 01:34 | HP ---
PRIMARY CARE PHYSICIAN: Dariusz Mooney MD CHIEF COMPLAINT: Nausea, vomiting, and lower extremity pain. HISTORY OF PRESENT ILLNESS: This is a 23-year-old white male, who has been admitted now, 11 times in the last 13 months for diabetic ketoacidosis. The patient reports that he took his insulin today, but then mentions a cat may have got into it. He would not give further details beyond that. He reports starting to feel bad after lunch, had aching all in both legs, nausea and then vomited 2 times. He denies any fevers or infectious signs. He presented to the ER and was found to be in severe DKA. His blood sugar was in the 600s. Beta hydroxybutyrate was elevated. Carbon dioxide was less than 8 on his CMP. Creatinine was elevated at 1.69. On his venous blood gas, his pH was 7.077. The patient was given 2 L normal saline in the emergency room and insulin drip has been started with some improvement in his heart rate down from 120s to 110s, and some improvement in his respiratory rate down from the mid 30s to the mid 20s. He is being admitted to the ICU for treatment of DKA. PAST MEDICAL HISTORY: 1. Diabetes mellitus type 1. 2. Diabetic neuropathy. PAST SURGICAL HISTORY: Right humerus repair with plate, screws, and billie. SOCIAL HISTORY: The patient denies tobacco, alcohol, or illicit drug use. FAMILY HISTORY: Negative for clotting or bleeding disorder. No immune dysfunction. ALLERGIES: TO BACTRIM AND TRAZODONE. HOME MEDICATIONS: 1. NovoLog 15 units subcu before meals. 2. Tresiba 30 units subcu twice a day. REVIEW OF SYSTEMS: CONSTITUTIONAL: No fevers, no chills, no weight changes. EYES: No double vision or blurred vision. ENT: No congestion, drainage, or sore throat. CARDIOVASCULAR: No chest pain. No palpitations or racing heart. PULMONARY: No coughing, wheezing, or shortness of breath. GASTROINTESTINAL: See HPI. No current abdominal pain. He does not feel nauseated anymore and now, no diarrhea or constipation. GENITOURINARY: No dysuria or hematuria. MUSCULOSKELETAL: He has muscle aches throughout his bilateral lower extremities. No focal areas and no injuries. SKIN: No rashes or lesions noted. NEUROLOGIC: No numbness, tingling, or focal weakness. PHYSICAL EXAMINATION: VITAL SIGNS: Blood pressure 149/116, pulse 118, respirations 28, O2 saturation 99% on room air, and temperature 97.9. GENERAL: This is a thin white male, curled up in the bed, sleeping, breathing a little bit fast. When I woke him up, he complained of pain in his legs that was unbearable, but otherwise had no other complaints. HEENT: Pupils equal, round, reactive to light. Oropharynx with dry mucous membranes. No lesions or exudate. NECK: Supple. No lymphadenopathy. No thyroid nodules or enlargement. HEART: Regular rhythm. Tachycardic rate. No murmurs, rubs, or gallops. LUNGS: Clear to auscultation bilaterally. No wheezes, crackles, or rhonchi. ABDOMEN: Soft, nontender to palpation. Normoactive bowel sounds. No hepatosplenomegaly or other masses. EXTREMITIES: No clubbing, cyanosis, or edema. He does not have any tenderness to palpation in the muscles or joints of his lower extremities or hips. He has normal range of motion. No manipulation or movement seems to worsen the pain. No evidence of injury. SKIN: No rashes or lesions noted. NEUROLOGIC: He has intact sensation in all extremities. He has normal movement of all extremities. No facial droop. PSYCHIATRIC: Alert and oriented x3. He does have a very depressed appearing affect. LABORATORY DATA: White blood cell count 20,000 with neutrophils of 68%, bands 4, lymphocytes 19, hemoglobin 17, platelet count 509. VBG with pH of 7.077, pCO2 of 18, PO2 of 64. Complete metabolic panel with sodium of 131, chloride of 95, carbon dioxide less than 8, creatinine of 1.69 with a baseline of less than 1, glucose 684, calcium of 9.3. Lipase was negative. TSH was normal. Recheck of blood sugar after fluids was down to 548. Urinalysis showed lot of glucose and ketones. No infection. Toxicology screen was negative for any drugs abuse. His beta hydroxybutyrate was 11.7. ASSESSMENT: 1. Recurrent diabetic ketoacidosis similar to patient's other presentations. No evidence of infectious etiology of his elevated white blood cell count. This is most likely a stress reaction. He has no fever. He has no infectious signs and his exam is normal. As expected, this will resolve with treatment of diabetic ketoacidosis. I suspect the white blood cell count will respond correspond with treatment of diabetic ketoacidosis. We will give him insulin drip and IV fluids per the diabetic ketoacidosis protocol. Once his blood sugars are down to less than 250, we can switch him over to sugar-containing fluids. We will also add some potassium to his fluids per the protocol as this will likely drop as his acidosis resolves. We will give him just clear liquids for now and can advance his diet and see if his symptoms improve. 2. Diabetes mellitus type 1. We will resume patient's long-acting insulin once his diabetic ketoacidosis is resolved. 3. Gastrointestinal prophylaxis. The patient is on Pepcid twice a day. 4. Deep venous thrombosis prophylaxis. The patient is on Lovenox. 5. Code status. The patient is a full code. He was not able to name a medical decision maker. Job ID: [id number]
[2018-11-16 05:17] LABS: Anion Gap 13 mmol/L (10-20); BUN (Urea Nitrogen) 11 mg/dL (8.9-20.6); Calc. Creatinine Clearance 82 mL/min (70-130); Carbon Dioxide 15 mmol/L (22-29); Chloride 108 mmol/L (98-107); Estimated GFR-MDRD Greater than 90; Glucose 225 mg/dL (70-105); Potassium 4.9 mmol/L (3.5-5.1); Sodium 131 mmol/L (136-145)
[2018-11-16 05:25] LABS: #Basophils 0.2 thou/uL (0.0-0.2); #Eosinphils 0.1 thou/uL (0.0-0.7); #Lymphocytes 4.2 thou/uL (1.20-3.40); #Monocytes 1.8 thou/uL (0.11-0.59); #Neutrophils 9.9 thou/uL (1.40-6.50); %Basophils 1.1 % (0.0-1.0); %Eosinophils 0.5 % (0.0-10.0); %Lymphocytes 26.2 % (21.0-51.0); %Neutrophils 61.2 % (42.0-75.0); Hemoglobin 13.4 g/dL (14.0-18.0); Mean Corpuscular HGB CONC 34.3 g/dL (32.0-36.0); Mean Corpuscular Hemoglobin 34.2 pg (27.0-31.0); Mean Corpuscular Volume 99.7 fL (78.0-98.0); Mean Platelet Volume 6.1 fL (7.4-10.4); Platelet Count 372 thou/uL (130-400); RBC Distribution Width 14.5 % (11.5-14.5); Red Blood Cell (RBC) Count 3.92 mill/uL (4.70-6.10); White Blood Cell (WBC) Count 16.2 thou/uL (4.8-10.8)
[2018-11-16] MEDS: D5 1/2 NS w/20 mEq KCL 1,000 ML IV PRN ×2 (06:20→10:42)
[2018-11-16] MEDS ORDERED: Enoxaparin Sodium 40 MG/0.4 ML SYRINGE SC SCH (09:00)
[2018-11-16 10:25] LABS: Anion Gap 10 mmol/L (10-20); BUN (Urea Nitrogen) 7 mg/dL (8.9-20.6); Calc. Creatinine Clearance 93 mL/min (70-130); Calcium 8.7 mg/dL (7.8-10.44); Carbon Dioxide 20 mmol/L (22-29); Chloride 108 mmol/L (98-107); Estimated GFR-MDRD Greater than 90; Glucose 124 mg/dL (70-105); Potassium 4.1 mmol/L (3.5-5.1); Sodium 134 mmol/L (136-145)
[2018-11-16] MEDS: Famotidine 20 MG TAB PO SCH (10:41)
--- NOTE | 2018-11-16 11:10 | PDOC.PN ---
- Subjective Encounter Start Date: 11/16/18 Encounter Start Time: 11:10 Subjective: f/u for recurrent DKA and 11 admission in last 13 months. Feels better -: and glucose trending downward. No N/V. - Objective Resuscitation Status - Order Detail: 11/15/18 19:47 Resuscitation Status Routine Resuscitation Status: FULL: Full Resuscitation Discussed with: patient MAR Reviewed: Yes Vital Signs & Weight: Vital Signs (12 hours) Temp Pulse Resp BP Pulse Ox 11/16/18 08:00 100 11/16/18 07:25 97.8 F 100 16 105/84 99 11/16/18 03:36 98.1 F 78 12 125/83 98 11/15/18 23:47 98.9 F 107 H 16 148/110 H 100 Weight Weight 112 lb 9.6 oz I&O: 11/15/18 11/16/18 11/17/18 06:59 06:59 06:59 Intake Total 1999 4110 Output Total 750 Balance 1999 3360 Result Diagrams: 11/16/18 04:32 11/16/18 09:56 Additional Labs: Accuchecks 11/16/18 11/16/18 11/16/18 09:58 09:11 08:07 POC Glucose 113 H 124 H 135 H 11/16/18 11/16/18 11/16/18 07:16 06:05 05:09 POC Glucose 154 H 225 H 272 H 11/16/18 11/16/18 11/16/18 04:03 03:02 02:02 POC Glucose 166 H 147 H 114 H 11/16/18 11/16/18 11/15/18 01:00 00:03 23:01 POC Glucose 138 H 149 H 167 H 11/15/18 11/15/18 11/15/18 22:16 21:26 20:28 POC Glucose 172 H 221 H 417 H 11/15/18 11/15/18 11/15/18 19:29 18:18 16:30 POC Glucose 548 H Greater than 550 H* Greater than 550 H* Laboratory Tests 11/15/18 11/15/18 11/15/18 17:02 17:02 17:02 WBC 20.3 H Plt Count 509 H Creatinine 1.69 H TSH 3rd Generation B-Hydroxybutyrate 11.70 H 11/15/18 11/15/18 11/16/18 17:03 21:25 00:33 WBC Plt Count Creatinine 1.30 1.09 TSH 3rd Generation 1.1167 B-Hydroxybutyrate 11/16/18 04:32 WBC Plt Count Creatinine 1.02 TSH 3rd Generation B-Hydroxybutyrate EKG Reviewed by me: Yes (Tele - SR) Phys Exam - Physical Examination Constitutional: NAD HEENT: PERRLA, sclera anicteric, oral pharynx no lesions Neck: no nodes, no JVD, supple, full ROM Respiratory: no wheezing, no rales, no rhonchi, clear to auscultation bilateral S1, S2 Cardiovascular: RRR, no significant murmur, no rub, gallop Gastrointestinal: soft, non-tender, no distention, positive bowel sounds Musculoskeletal: no edema, pulses present Neurological: normal sensation, moves all 4 limbs Psychiatric: A&O x 3 Skin: normal turgor, cap refill <2 seconds Dx/Plan (1) DKA (diabetic ketoacidoses) Code(s): E13.10 - OTH DIABETES MELLITUS WITH KETOACIDOSIS WITHOUT COMA Status : Acute Qualifiers: Comment: Improving, continue DKA treatment per protocol (2) BROOKE (acute kidney injury) Code(s): N17.9 - ACUTE KIDNEY FAILURE, UNSPECIFIED Status: Resolved Comment : Continue IVF's, improving with volume replacement, avoid nephrotoxic meds and limit contrast exposure (3) Hyponatremia Code(s): E87.1 - HYPO-OSMOLALITY AND HYPONATREMIA Status: Acute Comment: Secondary to hyperglycemia, improving (4) Leukocytosis Code(s): D72.829 - ELEVATED WHITE BLOOD CELL COUNT, UNSPECIFIED Status: Acute Comment: Secondary to demargination, improving - 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
[2018-11-16 19:47] VITALS: BP 129/83; TEMP 99
--- NOTE | 2018-11-18 02:37 | DIS ---
DATE OF ADMISSION: 11/15/2018 DATE OF DISCHARGE: 11/16/2018 DISCHARGE DIAGNOSES: 1. Diabetic ketoacidosis, recurrent. 2. Acute kidney injury. 3. Hyponatremia secondary to hyperglycemia. 4. Leukocytosis secondary to demargination. 5. Medical noncompliance. CONSULTATIONS: None. PERTINENT LAB AND X-RAY FINDINGS: Sodium ranged between 131 to 140. Creatinine ranged between 0.90 to 1.69. Estimated GFR ranged between 51 to greater than 90. TSH 1.12. CBC showed a white blood cell count ranged between 16.2 to 20.3. Urinalysis positive for glucose and ketones. Urine drug screen showed a beta hydroxybutyrate level 11.70. HOSPITAL COURSE: Patient was admitted to the intermediate care unit after presenting with nausea, vomiting, and diabetic ketoacidosis. Patient with multiple admissions for diabetic ketoacidosis due to medical noncompliance. Patient was placed on DKA protocol, receiving aggressive IV fluid hydration with initial beta hydroxybutyrate level at 11.7. The patient continued on insulin infusion as well as antiemetics. Overall clinically improving with supportive management. Patient decided he would like to return home and not continue therapy even though he remained on insulin infusion and IV fluids. Patient signed an AMA release form and left with a family member on 11/16/2018. Job ID: [id number]
== END 2018-11-16 22:47 | disposition left against medical advice (07) | DRG 638 ==
LOC: ERS 16:26 → IMCU/EMU 17:29
PROVIDERS: ADMIT Emergency Medicine; ATTEND Emergency Medicine
DX: E10.10 Type 1 diabetes mellitus with ketoacidosis without coma (principal); N17.9 Acute kidney failure, unspecified; E87.1 Hypo-osmolality and hyponatremia; E10.40 Type 1 diabetes mellitus with diabetic neuropathy, unspecified; D72.829 Elevated white blood cell count, unspecified; F31.9 Bipolar disorder, unspecified; F41.9 Anxiety disorder, unspecified; Z91.19 Patient's noncompliance with other medical treatment and regimen; Z79.4 Long term (current) use of insulin; Z98.890 Other specified postprocedural states; Z88.1 Allergy status to other antibiotic agents; Z88.8 Allergy status to other drugs, medicaments and biological substances
CPT/HCPCS: 36415; 36416; 80048; 80053; 80306; 80307; 81003; 81015; 82010; 82330; 82550; 82803; 83690; 84443; 85025; 93005; 96365; 96366; J1815; J2405; J7050

== ENCOUNTER 2019-04-08 16:17 | Emergency (ER) | payer OTHER ==
[2019-04-08 16:56] LABS: #Basophils 0.1 thou/uL (0.0-0.2); #Eosinphils 0.2 thou/uL (0.0-0.7); #Lymphocytes 3.2 thou/uL (1.20-3.40); #Neutrophils 3.3 thou/uL (1.40-6.50); %Eosinophils 2.2 % (0.0-10.0); %Monocytes 12.5 % (0.0-10.0); %Neutrophils 43.3 % (42.0-75.0); Mean Corpuscular HGB CONC 33.6 g/dL (32.0-36.0); Mean Corpuscular Hemoglobin 31.5 pg (27.0-31.0); Mean Corpuscular Volume 93.5 fL (78.0-98.0); Mean Platelet Volume 6.3 fL (7.4-10.4); Platelet Count 504 thou/uL (130-400); RBC Distribution Width 13.1 % (11.5-14.5); Red Blood Cell (RBC) Count 3.82 mill/uL (4.70-6.10); White Blood Cell (WBC) Count 7.7 thou/uL (4.8-10.8)
[2019-04-08 17:19] LABS: ALT (SGPT) 18 U/L (8-55); AST (SGOT) 12 U/L (5-34); Albumin 3.9 g/dL (3.5-5.0); Alkaline Phosphatase 81 U/L (40-150); Anion Gap 18 mmol/L (10-20); BUN (Urea Nitrogen) 13 mg/dL (8.9-20.6); Bilirubin, Total Less than 0.2 mg/dL (0.2-1.2); Calc. Creatinine Clearance 0 mL/min (70-130); Calcium 9.4 mg/dL (7.8-10.44); Carbon Dioxide 23 mmol/L (22-29); Chloride 101 mmol/L (98-107); Estimated GFR-MDRD Greater than 90; Globulin 3.1 g/dL (2.4-3.5); Glucose 332 mg/dL (70-105); Phosphorus 3.4 mg/dL (2.3-4.7); Potassium 4.4 mmol/L (3.5-5.1); Sodium 138 mmol/L (136-145)
[2019-04-08] MEDS ORDERED: Ondansetron PF 4 MG/2 ML Vial ONE (18:24)
[2019-04-08] MEDS ORDERED: Morphine 4 MG/ML VIAL ONE (18:24)
[2019-04-08] MEDS ORDERED: Ketorolac Tromethamine 30 MG/ML VIAL ONE (18:24)
== END 2019-04-08 19:25 | disposition home or self-care (01) ==
LOC: ERS 16:17
DX: E10.65 Type 1 diabetes mellitus with hyperglycemia (principal); E10.40 Type 1 diabetes mellitus with diabetic neuropathy, unspecified; F41.9 Anxiety disorder, unspecified; F31.9 Bipolar disorder, unspecified; F90.9 Attention-deficit hyperactivity disorder, unspecified type; G47.00 Insomnia, unspecified; F17.210 Nicotine dependence, cigarettes, uncomplicated; Z79.899 Other long term (current) drug therapy
CPT/HCPCS: 36415; 36416; 80053; 82010; 83735; 84100; 85025; 96374; 96375; J1885; J2270; J2405